=== PATIENT | male | born 1950 | race Caucasian/White ===

== ENCOUNTER 2016-10-29 21:56 | Emergency (ER) | payer OTHER ==
[2016-10-29 22:09] VITALS: BP 141/74; BMI 32.8
--- NOTE | 2016-10-29 22:53 | DR.GENAD ---
HPI - PCP Primary Care Physician: LELIA BENSON - Complaint/Symptoms Chief Complaint Doctors Comments: Port placed yesterday for therapy in [place] is scheduled to return tomorrow. Denies pain. Chief Complaint:: CHANGE DRESSING TO PORT ON CHEST. PORT HAS BEEN BLEEDING - Source History Provided: Patient - Mode of Arrival Mode of Arrival: Ambulatory - Timing Onset of Chief Complaint: 10/29/16 PMH - PMH Past Medical History: Yes Past Medical History: Dyslipidemia, Hypertension, Kidney Stones, [place] Past Medical History Comment: MG Past Surgical History: Yes Surgical History: Cholecystectomy, Ortho Surgery Past Surgical History Comment: PORT PLACEMENT,SHOULDER, BILATERAL KNEE REPLACEMENT, VEINS STRIPPED IN LEGS - Family History History of Family Medical Conditions: Yes Family Medical History: Diabetes Mellitus, Cancer, [place] - Social History Does patient currently use any type of tobacco product: No Have you used tobacco products in the last 12 months: No Type of Tobacco Use: None How many years tobacco product used: 8 Does any household member use tobacco: No Alcohol Use: None Do you use any recreational Drugs:: No Lives With: Spouse Lives Where: Home - infectious screening In the last 2 months have you had wt loss of >10#?: NO Have you had fever, night sweats or hemotysis?: No Have you traveled outside the country in the last 6 months?: No Isolation: Standard ROS - Review of Systems Eyes: No Symptoms Reported ENTM: No Symptoms Reported Respiratoy: No Symptoms Reported Cardiovascular: No Symptoms Reported Gastrointestinal/Abdominal: No Symptoms Reported Genitourinary: No Symptoms Reported Neurological: No Symptoms Reported Musculoskeletal: No Symptoms Reported Integumentary: No Symptoms Reported Hematologic/Lymphatic: No Symptoms Reported Endocrine: No Symptoms Reported Psychiatric: No Symptoms Reported All Other Systems: Reviewed and Negative PE - Vital Signs Vitals: Temperature 97.8 F Pulse Rate 73 Respiratory Rate 20 Blood Pressure [Right Arm] 161/99 Blood Pressure 141/74 O2 Sat by Pulse Oximetry 98 - General Limitations: No Limitations General Appearance: Alert, In No Apparent Distress, Anxious - Head Head Exam: Normal Inspection, Atraumatic - Eyes Eye exam: Normal Appearance, PERRL, EOMI - ENT ENT Exam: Normal Exam External Ear Exam: Normal External Inspection TM/Canal Exam: Bilateral Normal Nose Exam: Normal Nose Exam Mouth Exam: Normal Inspection Throat Exam: Normal Inspection - Neck Neck Exam: Normal Inspection - Chest Chest Inspection: Normal Inspection - Respiratory Respiratory Exam: Normal Lung Sounds Bilat Respiratory Exam: Bilateral Clear to Auscultation - Cardiovascular Cardiovascular Exam: Regular Rate, Normal Rhythm - Abdominal Exam Abdominal Exam: Normal Inspection Abdominal Tenderness: negative: RUQ, RLQ, LUQ, LLQ, Epigastrium, Suprapubic, Diffuse, Mild, Moderate, Severe, Other - Extremities Extremities Exam: Normal Inspection - Back Back Exam: Normal Inspection - Neurologic Neurological Exam: Alert, Oriented X3, CN II-XII Intact - Psychiatric Psychiatric Exam: Normal Affect - Skin Skin Exam: Warm, Dry - Diagnosis Discharge Problem: Central vascular catheter in place upon arrival - Discharge Plan Condition: Stable - Follow ups/Referrals Follow ups/Referrals: SHIVANI LANCASTER [Primary Care Provider] - 3 days - Instructions
== END 2016-10-29 23:30 | disposition home or self-care (01) ==
LOC: ER 22:17
DX: Z95.9 Presence of cardiac and vascular implant and graft, unspecified (principal)
CPT/HCPCS: 99281; 99282

== ENCOUNTER 2016-11-18 12:54 | Emergency (ER) | payer OTHER ==
[2016-11-18 12:58] VITALS: BMI 30.9
[2016-11-18] MEDS ORDERED: NS 1000 ML 1,000 ML IV ONE ×2 (13:14→14:15)
[2016-11-18] MEDS ORDERED: NS 1000 ML 1,000 ML ONE ×2 (13:14→14:05)
[2016-11-18 14:03] LABS: BASOPHILS % (AUTO) 0.2 % (0.2-1.0); EOSINOPHILS # (AUTO) 0.2 x10^3/uL (0.0-0.2); EOSINOPHILS % (AUTO) 1.6 % (0.9-2.9); HEMATOCRIT 40.8 % (42.0-54.0); HEMOGLOBIN 13.3 g/dL (13.5-18.0); LYMPHOCYTES # (AUTO) 1.4 X10^3/uL (1.3-2.9); MEAN CORPUSCULAR HEMOGLOBIN 30.4 pg (27.0-34.0); MEAN CORPUSCULAR HGB CONC 32.7 g/dL (33.0-35.0); MEAN CORPUSCULAR VOLUME 93.1 fL (80.0-100.0); MEAN PLATELET VOLUME 8.6 fL (7.4-11.0); MONOCYTES % (AUTO) 8.5 % (0.0-13.0); NEUTROPHILS # (AUTO) 9.1 x10^3/uL (2.2-4.8); NEUTROPHILS % (AUTO) 77.7 % (42.0-75.0); PLATELET COUNT 145 X10^3/uL (150.0-450.0); RED BLOOD COUNT 4.38 X10^6/uL (4.7-6.0); RED CELL DISTRIBUTION WIDTH 13.9 % (11.6-16.5); WHITE BLOOD COUNT 11.7 X10^3/uL (3.6-10.0)
[2016-11-18 14:19] LABS: BLOOD UREA NITROGEN 47 mg/dL (7-18); CALCIUM 8.1 mg/dL (8.5-10.1); CARBON DIOXIDE 22.8 mmol/L (21-32); CHLORIDE 105 mmol/L (98-107); COR NA(FOR HYPERGLY) 144 mmol/L (136-145); CREATININE 2.39 mg/dL (0.70-1.30); GLUCOSE 200 mg/dL (65-99); SODIUM 142 mmol/L (136-145); TROPONIN I < 0.02 ng/mL (0-1.5); eGFR BLACK RACES 35 (>60); eGFR NON BLACK RACES 29 (>60)
[2016-11-18 14:24] LABS: ALANINE AMINOTRANSFERASE 50 Units/L (12-78); ALBUMIN 3.7 g/dL (3.4-5.0); ALKALINE PHOSPHATASE 33 Units/L (46-116); ASPARTATE AMINO TRANSFERASE 30 Units/L (15-37); CKMB % 3.4 % (<4); CREATINE KINASE 47 Units/L (39-308); CREATINE KINASE MB 1.6 ng/mL (0-4.0); TOTAL PROTEIN 5.4 g/dL (6.4-8.2)
[2016-11-18 15:16] LABS: BILIRUBIN,URINE NEGATIVE (NEGATIVE); BLOOD/HEMOGLOBIN,URINE NEGATIVE (NEGATIVE); GLUCOSE, URINE NEGATIVE (NEGATIVE); KETONES,URINE NEGATIVE (NEGATIVE); LEUKOCYTE ESTERASE ,URINE 1+ (NEGATIVE); NITRITES,URINE NEGATIVE (NEGATIVE); PROTEIN,URINE 2+ (NEGATIVE); UROBILINOGEN,URINE NORMAL (NORMAL)
[2016-11-18 15:26] LABS: APPEARANCE,URINE CLEAR (CLEAR); BACTERIA,URINE TRACE /HPF (NEGATIVE); COLOR,URINE YELLOW (YELLOW); RBC,URINE 0-2 /HPF (NEGATIVE); SQUAMOUS EPITHELIAL CELL,UR NEGATIVE /HPF (NEGATIVE)
--- NOTE | 2016-11-18 16:06 | DR.GENAD ---
HPI - PCP Primary Care Physician: Kylah LANCASTER - Complaint/Symptoms Chief Complaint Doctors Comments: Patient presents with c/o dizziness and low blood pressure. Spourse reports that his blood pressure bottom out 4-5 weeks ago in the doctors office systolic 80s. He is getting plasma exchange and is taking three classes of antihypertensives. Spouse states that his major underlying problem is Myasthenia gravis. Chief Complaint:: PT. C/O BLOOD PRESSURE BEING LOW. B/P WAS 55/39 @ 1230 AND THEN 67/47 @ 1205. PT. C/O DIZZINESS. - Source History Provided: Patient - Mode of Arrival Mode of Arrival: Ambulatory - Timing Onset of Chief Complaint: 11/18/16 PMH - PMH Past Medical History: Yes Past Medical History: Dyslipidemia, Hypertension, Kidney Stones, [place] Past Medical History Comment: Francisco J-WHITNEY Past Surgical History: Yes Surgical History: Cholecystectomy, Ortho Surgery - Family History History of Family Medical Conditions: Yes Family Medical History: Diabetes Mellitus, Cancer, [place] - Social History Does patient currently use any type of tobacco product: No Have you used tobacco products in the last 12 months: No Type of Tobacco Use: None Does any household member use tobacco: No Alcohol Use: None Do you use any recreational Drugs:: No Lives With: Spouse Lives Where: Home - infectious screening In the last 2 months have you had wt loss of >10#?: NO Have you had fever, night sweats or hemotysis?: No Have you traveled outside the country in the last 6 months?: No Isolation: Standard ROS - Review of Systems Eyes: No Symptoms Reported ENTM: No Symptoms Reported Respiratoy: No Symptoms Reported Cardiovascular: Other (hypotension) Gastrointestinal/Abdominal: No Symptoms Reported Genitourinary: No Symptoms Reported Neurological: No Symptoms Reported Musculoskeletal: No Symptoms Reported Integumentary: No Symptoms Reported Hematologic/Lymphatic: No Symptoms Reported Endocrine: No Symptoms Reported Psychiatric: No Symptoms Reported All Other Systems: Reviewed and Negative PE - Vital Signs Vitals: Temperature 98.2 F Pulse Rate [Right Brachial] 62 Pulse Rate 90 Respiratory Rate 16 Blood Pressure [Right Arm] 119/68 Blood Pressure 69/45 O2 Sat by Pulse Oximetry 100 - General Limitations: No Limitations General Appearance: Alert, In No Apparent Distress - Head Head Exam: Normal Inspection, Atraumatic - Eyes Eye exam: Normal Appearance, PERRL, EOMI - ENT ENT Exam: Normal Exam External Ear Exam: Normal External Inspection TM/Canal Exam: Bilateral Normal Nose Exam: Normal Nose Exam Mouth Exam: Normal Inspection Throat Exam: Normal Inspection - Neck Neck Exam: Normal Inspection - Chest Chest Inspection: Normal Inspection - Respiratory Respiratory Exam: Normal Lung Sounds Bilat Respiratory Exam: Bilateral Clear to Auscultation - Cardiovascular Cardiovascular Exam: Regular Rate - Abdominal Exam Abdominal Exam: Normal Inspection Abdominal Tenderness: negative: RUQ, RLQ, LUQ, LLQ, Epigastrium, Suprapubic, Diffuse, Mild, Moderate, Severe, Other - Extremities Extremities Exam: Normal Inspection, Full ROM - Back Back Exam: Normal Inspection - Neurologic Neurological Exam: Alert, Oriented X3, CN II-XII Intact - Psychiatric Psychiatric Exam: Normal Affect - Skin Skin Exam: Warm, Dry, Intact Course - Treatment Treatment: Patient given NS [id number] BP normal ROR - Labs Reviewed Laboratory Results Reviewed?: Yes (cardiacs negative; BUN 47; Cr 2.34) Result Diagrams: 11/18/16 13:54 11/18/16 13:54 Laboratory: WBC 11.7 X10^3/uL (3.6-10.0) H 11/18/16 13:54 RBC 4.38 X10^6/uL (4.7-6.0) L 11/18/16 13:54 Hgb 13.3 g/dL (13.5-18.0) L 11/18/16 13:54 Hct 40.8 % (42.0-54.0) L 11/18/16 13:54 MCV 93.1 fL (80.0-100.0) 11/18/16 13:54 MCH 30.4 pg (27.0-34.0) 11/18/16 13:54 MCHC 32.7 g/dL (33.0-35.0) L 11/18/16 13:54 RDW 13.9 % (11.6-16.5) 11/18/16 13:54 Plt Count 145 X10^3/uL (150.0-450.0) L 11/18/16 13:54 MPV 8.6 fL (7.4-11.0) 11/18/16 13:54 Neut % 77.7 % (42.0-75.0) H 11/18/16 13:54 Lymph % 12.0 % (21.0-51.0) L 11/18/16 13:54 Woods % 8.5 % (0.0-13.0) 11/18/16 13:54 Eos % 1.6 % (0.9-2.9) 11/18/16 13:54 Baso % 0.2 % (0.2-1.0) 11/18/16 13:54 Neut # 9.1 x10^3/uL (2.2-4.8) H 11/18/16 13:54 Lymph # 1.4 X10^3/uL (1.3-2.9) 11/18/16 13:54 Woods # 1.0 x10^3/uL (0.3-0.8) H 11/18/16 13:54 Eos # 0.2 x10^3/uL (0.0-0.2) 11/18/16 13:54 Baso # 0.0 X10^3/uL (0.0-0.1) 11/18/16 13:54 Absolute Nucleated RBC 0.1 /100WBC 11/18/16 13:54 INR Target Range - 11/18/16 13:54 INR 1.31 (0.8-1.3) H 11/18/16 13:54 PTT 26.3 SECONDS (22.9-36.5) 11/18/16 13:54 PTT Comment - 11/18/16 13:54 Sodium 142 mmol/L (136-145) 11/18/16 13:54 Corrected Sodium 144 mmol/L (136-145) 11/18/16 13:54 Potassium 3.5 mmol/L (3.5-5.1) 11/18/16 13:54 Chloride 105 mmol/L (98-107) 11/18/16 13:54 Carbon Dioxide 22.8 mmol/L (21-32) 11/18/16 13:54 BUN 47 mg/dL (7-18) H 11/18/16 13:54 Creatinine 2.39 mg/dL (0.70-1.30) H 11/18/16 13:54 Est GFR (MDRD) Af Amer 35 (>60) L 11/18/16 13:54 Est GFR (MDRD) Non-Af 29 (>60) L 11/18/16 13:54 Glucose 200 mg/dL (65-99) H 11/18/16 13:54 Calcium 8.1 mg/dL (8.5-10.1) L 11/18/16 13:54 Corrected Calcium TNP 11/18/16 13:54 Total Bilirubin 1.30 mg/dL (0.2-1.0) H 11/18/16 13:54 AST 30 Units/L (15-37) 11/18/16 13:54 ALT 50 Units/L (12-78) 11/18/16 13:54 Alkaline Phosphatase 33 Units/L (46-116) L 11/18/16 13:54 Creatine Kinase 47 Units/L (39-308) 11/18/16 13:54 CK-MB (CK-2) 1.6 ng/mL (0-4.0) 11/18/16 13:54 CK/CKMB % Calc 3.4 % (<4) 11/18/16 13:54 Troponin I < 0.02 ng/mL (0-1.5) 11/18/16 13:54 Total Protein 5.4 g/dL (6.4-8.2) L 11/18/16 13:54 Albumin 3.7 g/dL (3.4-5.0) 11/18/16 13:54 Globulin 1.7 g/dL (2.5-4.5) L 11/18/16 13:54 Albumin/Globulin Ratio 2.2 Ratio (1.1-2.1) H 11/18/16 13:54 Specimen Type Clean catch urine 11/18/16 15:10 Urine Color Yellow (YELLOW) 11/18/16 15:10 Urine Appearance Clear (CLEAR) 11/18/16 15:10 Urine pH 6.0 (5.0 - 8.0) 11/18/16 15:10 Ur Specific Banner 1.015 (1.000-1.030) 11/18/16 15:10 Urine Protein 2+ (NEGATIVE) 11/18/16 15:10 Urine Glucose (UA) Negative (NEGATIVE) 11/18/16 15:10 Urine Ketones Negative (NEGATIVE) 11/18/16 15:10 Urine Occult Blood Negative (NEGATIVE) 11/18/16 15:10 Urine Nitrite Negative (NEGATIVE) 11/18/16 15:10 Urine Bilirubin Negative (NEGATIVE) 11/18/16 15:10 Urine Urobilinogen Normal (NORMAL) 11/18/16 15:10 Ur Leukocyte Esterase 1+ (NEGATIVE) 11/18/16 15:10 Urine RBC 0-2 /HPF (NEGATIVE) 11/18/16 15:10 Urine WBC 0-2 /HPF (NEGATIVE) 11/18/16 15:10 Ur Squamous Epith Cells Negative /HPF (NEGATIVE) 11/18/16 15:10 Urine Bacteria Trace /HPF (NEGATIVE) 11/18/16 15:10 Ur Culture Indicated? No/not indicated 11/18/16 15:10 - XRAY XRAY Interpreted by: Radiologist - EKG Rate: 65 - Diagnosis Discharge Problem: Hypotensive episode, Prerenal azotemia - Discharge Plan Condition: Stable - Follow ups/Referrals Follow ups/Referrals: SHIVANI LANCASTER [Primary Care Provider] - 3 days - Instructions
[2016-11-18 16:08] VITALS: BP 121/64
== END 2016-11-18 16:20 | disposition home or self-care (01) ==
LOC: ER 13:08
DX: I95.9 Hypotension, unspecified (principal); R79.89 Other specified abnormal findings of blood chemistry; Z79.01 Long term (current) use of anticoagulants
CPT/HCPCS: 36415; 80053; 81001; 82550; 82553; 84484; 85025; 85610; 85730; 93005; 93010; 96365; 96367; 99283; A4222

== ENCOUNTER → 2016-12-10 | Outpatient (CLI) | payer OTHER ==
[2016-11-18 16:08] VITALS: BP 121/64
[2016-12-10 08:23] LABS: BASOPHILS % (AUTO) 0.1 % (0.2-1.0); EOSINOPHILS % (AUTO) 0.1 % (0.9-2.9); HEMATOCRIT 42.1 % (42.0-54.0); HEMOGLOBIN 13.9 g/dL (13.5-18.0); LYMPHOCYTES # (AUTO) 1.2 X10^3/uL (1.3-2.9); LYMPHOCYTES % (AUTO) 10.6 % (21.0-51.0); MEAN CORPUSCULAR HEMOGLOBIN 30.3 pg (27.0-34.0); MEAN CORPUSCULAR HGB CONC 33.1 g/dL (33.0-35.0); MEAN CORPUSCULAR VOLUME 91.5 fL (80.0-100.0); MEAN PLATELET VOLUME 7.9 fL (7.4-11.0); MONOCYTES # (AUTO) 0.8 x10^3/uL (0.3-0.8); MONOCYTES % (AUTO) 6.6 % (0.0-13.0); NEUTROPHILS # (AUTO) 9.5 x10^3/uL (2.2-4.8); NEUTROPHILS % (AUTO) 82.6 % (42.0-75.0); PLATELET COUNT 124 X10^3/uL (150.0-450.0); RED BLOOD COUNT 4.59 X10^6/uL (4.7-6.0); RED CELL DISTRIBUTION WIDTH 14.3 % (11.6-16.5); WHITE BLOOD COUNT 11.5 X10^3/uL (3.6-10.0)
[2016-12-10 08:42] LABS: ALANINE AMINOTRANSFERASE 57 Units/L (12-78); ALBUMIN 3.3 g/dL (3.4-5.0); ALKALINE PHOSPHATASE 82 Units/L (46-116); ASPARTATE AMINO TRANSFERASE 20 Units/L (15-37); BLOOD UREA NITROGEN 14 mg/dL (7-18); CALCIUM 8.9 mg/dL (8.5-10.1); CARBON DIOXIDE 27.9 mmol/L (21-32); CHLORIDE 106 mmol/L (98-107); COR CA(FOR HYPOALB) 9.5 mg/dL (8.5-10.1); COR NA(FOR HYPERGLY) 147 mmol/L (136-145); CREATININE 1.12 mg/dL (0.70-1.30); GLUCOSE 223 mg/dL (65-99); SODIUM 144 mmol/L (136-145); eGFR BLACK RACES > 60 (>60); eGFR NON BLACK RACES > 60 (>60)
== END ==
LOC: LAB 07:17
PROVIDERS: ATTEND Psychiatry & Neurology Neurology
DX: Z79.899 Other long term (current) drug therapy (principal)
CPT/HCPCS: 36415; 80053; 85025

== ENCOUNTER 2017-02-17 10:44 | Emergency (ER) | payer OTHER ==
[2017-02-17 11:04] VITALS: BMI 29.4
[2017-02-17] MEDS ORDERED: ZOFRAN INJ 4 MG VIAL IVP ONE (12:15)
[2017-02-17] MEDS ORDERED: DEMEROL INJ IVP ONE (12:16)
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
[2017-02-17] MEDS ORDERED: ZOFRAN INJ 4 MG VIAL ONE (12:22)
[2017-02-17] MEDS ORDERED: DEMEROL INJ ONE (12:23)
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
[2017-02-17] MEDS ORDERED: DILAUDID INJ ONE (12:59)
[2017-02-17] MEDS ORDERED: DILAUDID INJ IVP ONE (12:59)
[2017-02-17 13:23] VITALS: BP 109/75
== END 2017-02-17 14:30 | disposition short-term general hospital (02) ==
LOC: ER 10:44
DX: S32.018A Other fracture of first lumbar vertebra, initial encounter for closed fracture (principal); S50.00XA Contusion of unspecified elbow, initial encounter; S00.03XA Contusion of scalp, initial encounter; S09.90XA Unspecified injury of head, initial encounter; M19.90 Unspecified osteoarthritis, unspecified site; M51.36 Other intervertebral disc degeneration, lumbar region; V87.7XXA Person injured in collision between other specified motor vehicles (traffic), initial encounter
CPT/HCPCS: 70450; 71010; 72125; 72131; 73070; 96365; 96374; 96375; 99284; 99285; J1170; J2175; J2405

== ENCOUNTER → 2017-02-25 | Outpatient (CLI) | payer OTHER ==
[2017-02-17 13:23] VITALS: BP 109/75
== END ==
LOC: RAD 11:10
PROVIDERS: ATTEND Nurse Practitioner Family
DX: M79.602 Pain in left arm (principal); R22.32 Localized swelling, mass and lump, left upper limb
CPT/HCPCS: 93971

== ENCOUNTER → 2017-07-07 | Outpatient (CLI) | payer OTHER ==
[2017-07-07 13:29] LABS: BLOOD UREA NITROGEN 21 mg/dL (7-18); CALCIUM 8.8 mg/dL (8.5-10.1); CARBON DIOXIDE 30.4 mmol/L (21-32); CHLORIDE 106 mmol/L (98-107); CREATININE 0.94 mg/dL (0.70-1.30); SODIUM 142 mmol/L (136-145); eGFR BLACK RACES > 60 (>60); eGFR NON BLACK RACES > 60 (>60)
[2017-07-07 13:36] LABS: BASOPHILS % (AUTO) 0.3 % (0.2-1.0); EOSINOPHILS % (AUTO) 0.2 % (0.9-2.9); HEMATOCRIT 40.7 % (42.0-54.0); HEMOGLOBIN 13.3 g/dL (13.5-18.0); LYMPHOCYTES # (AUTO) 1.7 X10^3/uL (1.3-2.9); LYMPHOCYTES % (AUTO) 20.3 % (21.0-51.0); MEAN CORPUSCULAR HEMOGLOBIN 28.5 pg (27.0-34.0); MEAN CORPUSCULAR HGB CONC 32.8 g/dL (33.0-35.0); MEAN CORPUSCULAR VOLUME 86.8 fL (80.0-100.0); MEAN PLATELET VOLUME 8.3 fL (7.4-11.0); MONOCYTES # (AUTO) 0.8 x10^3/uL (0.3-0.8); MONOCYTES % (AUTO) 9.5 % (0.0-13.0); NEUTROPHILS # (AUTO) 5.9 x10^3/uL (2.2-4.8); NEUTROPHILS % (AUTO) 69.7 % (42.0-75.0); PLATELET COUNT 186 X10^3/uL (150.0-450.0); RED BLOOD COUNT 4.69 X10^6/uL (4.7-6.0); RED CELL DISTRIBUTION WIDTH 15.8 % (11.6-16.5); WHITE BLOOD COUNT 8.5 X10^3/uL (3.6-10.0)
== END ==
LOC: LAB 13:06
PROVIDERS: ATTEND Psychiatry & Neurology Neurology
DX: Z79.899 Other long term (current) drug therapy (principal)
CPT/HCPCS: 36415; 80048; 85025

== ENCOUNTER → 2017-08-04 | Outpatient (CLI) | payer OTHER ==
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
== END ==
LOC: RAD 10:01
PROVIDERS: ATTEND Nurse Practitioner Family
DX: M54.17 Radiculopathy, lumbosacral region (principal)
CPT/HCPCS: 72100

== ENCOUNTER 2017-08-07 10:32 | Emergency (ER) | payer OTHER ==
[2017-08-07 10:54] VITALS: BMI 29.5
[2017-08-07] MEDS ORDERED: DUONEB 0.5 MG/3 MG NEB ONE (11:03)
[2017-08-07] MEDS ORDERED: SOLU-Medrol 125 MG VIAL IVP ONE (11:03)
[2017-08-07] MEDS ORDERED: DUONEB 0.5 MG/3 MG ONE (11:07)
[2017-08-07] MEDS ORDERED: NS 1000 ML 1,000 ML ONE (11:11)
[2017-08-07] MEDS ORDERED: SOLU-Medrol 125 MG VIAL ONE (11:11)
--- NOTE | 2017-08-07 11:12 | DR.SOBA ---
HPI - Time Seen Time seen: 11:05 - Primary Care Physician Primary Care Physician: Kylah LANCASTER - Complaints Chief Complaint Doctors Comments: Family complains of SOB, GOMES with patient unable to cough up the mucous with wheezing and cough and complaining of his mouth being sore. States they were going to give him a breathing treatment last night but could not find all the equipment. [facility] he has been givng out. [facility] he has been taking plamophoresis in [place] and switched to [place] because it was closer and has been having IGIV in [place] and [place] but has not had any recently. [facility] he is a patient of Dr. Calloway and has had treatments in [place]. [facility] they do not feel the IVIG is working and they told him they had a new treatment at [facility] that they are waiting for him to try. [facility] she was unable to get in tough with the neurologist in [place] today. [facility] patient has MS and was in the hospital in [place] for a while. Family state he is have problems with neuropathy at home. Chief Complaint:: PT. C/O SHORTNESS OF BREATH AND FATIGUE X 1 WEEK. WORSENING SHORTNESS OF BREATH SINCE YESTERDAY. PT. UNABLE TO COUGH UP ANY MUCOUS/PHLEGM. - Reviewed Nurses Notes Reviewed: Yes - Source History Provided: Patient, EMS - Mode of Arrival Mode of Arrival: EMS - Timing Onset of Chief Complaint: 07/31/17 - Duration Duration: Unknown - Context Onset:: At Rest PE Risk Factors:: None History of:: None Currently on:: Inhaled Bronchodilators Prehospital Care:: None - Modifying Factors Worsens:: Exertion Improves:: Nothing - Associated Signs and Symptoms Associated Signs and Symptoms: Wheeze, Cough, Numbness - If Cough Cough: Nonproductive, White PMH - PMH Past Medical History: Yes Past Medical History: Dyslipidemia, Hypertension, Kidney Stones, [place], Sleep Apnea Past Medical History Comment: MG Past Surgical History: Yes Surgical History: Cholecystectomy, Ortho Surgery, Other Past Surgical History Comment: BACK - Family History History of Family Medical Conditions: Yes Family Medical History: Diabetes Mellitus, Cancer, [place] - Social History Does patient currently use any type of tobacco product: No Have you used tobacco products in the last 12 months: No Type of Tobacco Use: None Does any household member use tobacco: No Alcohol Use: None Do you use any recreational Drugs:: No Lives With: Spouse Lives Where: Home - infectious screening In the last 2 months have you had wt loss of >10#?: NO Have you had fever, night sweats or hemotysis?: No Have you traveled outside the country in the last 6 months?: No Isolation: Standard ROS - Review of Systems Constitutional: No Symptoms Reported, Weakness, Fatigue Eyes: No Symptoms Reported ENTM: No Symptoms Reported, Mouth Pain Respiratoy: No Symptoms Reported, Non-Productive Cough, Short of Breath, Wheezing Cardiovascular: No Symptoms Reported. negative: See HPI, Chest Pain, Edema, Palpitations, Syncope, Cyanosis, Skin Mottling, Other Gastrointestinal/Abdominal: No Symptoms Reported Genitourinary: No Symptoms Reported Neurological: No Symptoms Reported, Paresthesia, Weakness, Problems Walking Musculoskeletal: No Symptoms Reported, Back (fell weeks ago but has been x-ray since but did not get the report) Integumentary: No Symptoms Reported Hematologic/Lymphatic: No Symptoms Reported Endocrine: No Symptoms Reported Psychiatric: No Symptoms Reported PE - Vital Signs Vitals: Temperature 97.3 F Pulse Rate [Apical] 106 Pulse Rate 104 Respiratory Rate 18 Blood Pressure [Right Arm] 136/64 Blood Pressure 136/85 O2 Sat by Pulse Oximetry 98 - General Limitations: No Limitations General Appearance: Alert, In Distress (moderate), Obese - Head Head Exam: Normal Inspection, Atraumatic, Normocephalic - Eyes Eye exam: Normal Appearance, PERRL, EOMI. negative: Scleral Icterus, Conjunctival Injection, Nystagmus, Miosis, Mydrasis, Periorbital Swelling, Periorbital Tenderness, Other - ENT ENT Exam: Normal Exam, Normal Oropharynx, Normal External Ear Exam, Mucous Membranes Moist, TM's Normal Bilaterally (white exudates posterior pharynx) - Neck Neck Exam: Normal Inspection, Full ROM, Trachea Midline - Chest Chest Inspection: Normal Inspection, Symmetric Chest Wall Rise - Respiratory Respiratory Exam: Normal Lung Sounds Bilat, Prolonged Expiratory Phase. negative: Accessory Muscle Use, Chest Wall Tenderness Respiratory Exam: Bilateral Wheezing, Bilateral Decreased Breath Sounds - Cardiovascular Cardiovascular Exam: Regular Rate, Normal Rhythm, Normal Heart Sounds - Abdominal Exam Abdominal Exam: Normal Inspection, Normal Bowel Sounds, Soft Abdominal Tenderness: negative: RUQ, RLQ, LUQ, LLQ, Epigastrium, Suprapubic, Diffuse, Mild, Moderate, Severe, Other - Extremities Extremities Exam: Normal Inspection, Full ROM. negative: Tenderness, Normal Capillary Refill, Edema - Back Back Exam: Normal Inspection, Full ROM - Neurologic Neurological Exam: Alert, Oriented X3, CN II-XII Intact. negative: Normal Gait (gait not tested) - Psychiatric Psychiatric Exam: Normal Affect, Normal Mood - Skin Skin Exam: Warm, Dry, Intact, Normal Color Course - Reevaluation 1st: Improved (Patient requesting to go by helicopter) - Consultation Called: 13:00 (Dr. Brothers accepted patient but has to talk with neurolgist, Dr. Doyle) Call Returned: 13:43 (Patient accepted in transfer to [facility]) - Education/Counseling Education/Counseling: Patient, Family Educated On: Treatment, Diagnosis, Needs for Follow Up ROR - Labs Reviewed Laboratory Results Reviewed?: Yes (all labs and x-ray results reviewed and discussed with patient) Result Diagrams: 08/07/17 11:13 08/07/17 11:13 Laboratory: 08/07/17 11:21 Sputum - Expectorated Sputum Sputum Culture - Final 08/07/17 11:21 Sputum - Expectorated Sputum - Final WBC 9.4 X10^3/uL (3.6-10.0) 08/07/17 11:13 RBC 4.13 X10^6/uL (4.7-6.0) L 08/07/17 11:13 Hgb 12.1 g/dL (13.5-18.0) L 08/07/17 11:13 Hct 36.7 % (42.0-54.0) L 08/07/17 11:13 MCV 88.9 fL (80.0-100.0) 08/07/17 11:13 MCH 29.2 pg (27.0-34.0) 08/07/17 11:13 MCHC 32.9 g/dL (33.0-35.0) L 08/07/17 11:13 RDW 16.2 % (11.6-16.5) 08/07/17 11:13 Plt Count 194 X10^3/uL (150.0-450.0) 08/07/17 11:13 MPV 7.9 fL (7.4-11.0) 08/07/17 11:13 Neut % 73.8 % (42.0-75.0) 08/07/17 11:13 Lymph % 17.8 % (21.0-51.0) L 08/07/17 11:13 Pitt % 7.9 % (0.0-13.0) 08/07/17 11:13 Eos % 0.2 % (0.9-2.9) L 08/07/17 11:13 Baso % 0.3 % (0.2-1.0) 08/07/17 11:13 Neut # 6.9 x10^3/uL (2.2-4.8) H 08/07/17 11:13 Lymph # 1.7 X10^3/uL (1.3-2.9) 08/07/17 11:13 Pitt # 0.7 x10^3/uL (0.3-0.8) 08/07/17 11:13 Eos # 0.0 x10^3/uL (0.0-0.2) 08/07/17 11:13 Baso # 0.0 X10^3/uL (0.0-0.1) 08/07/17 11:13 Absolute Nucleated RBC 0.1 /100WBC 08/07/17 11:13 INR Target Range - 08/07/17 11:13 INR 1.02 (0.8-1.3) 08/07/17 11:13 PTT 24.2 SECONDS (22.9-36.5) 08/07/17 11:13 PTT Comment - 08/07/17 11:13 Sample Site Right radial 08/07/17 11:53 ABG pH 7.450 (7.35-7.45) 08/07/17 11:53 ABG pCO2 35.0 mmHg (35.0-45.0) 08/07/17 11:53 ABG pO2 72.0 mmHg (80.0-100.0) L 08/07/17 11:53 ABG HCO3 24.3 mmol/L (22-26) 08/07/17 11:53 ABG O2 Saturation 95.0 % (90-100) 08/07/17 11:53 ABG Base Excess 0.6 mmol/L (-2.0-2.0) 08/07/17 11:53 Tanner Test Pos 08/07/17 11:53 A-a Gradient 84.0 mmHg 08/07/17 11:53 FiO2 28.000 08/07/17 11:53 Blood Gas Comments Raven well aw 08/07/17 11:53 Sodium 142 mmol/L (136-145) 08/07/17 11:13 Corrected Sodium 143 mmol/L (136-145) 08/07/17 11:13 Potassium 4.2 mmol/L (3.5-5.1) 08/07/17 11:13 Chloride 108 mmol/L (98-107) H 08/07/17 11:13 Carbon Dioxide 28.5 mmol/L (21-32) 08/07/17 11:13 BUN 41 mg/dL (7-18) H 08/07/17 11:13 Creatinine 0.90 mg/dL (0.70-1.30) 08/07/17 11:13 Est GFR (MDRD) Af Amer > 60 (>60) 08/07/17 11:13 Est GFR (MDRD) Non-Af > 60 (>60) 08/07/17 11:13 Glucose 143 mg/dL (65-99) H 08/07/17 11:13 Calcium 8.2 mg/dL (8.5-10.1) L 08/07/17 11:13 Corrected Calcium 9.1 mg/dL (8.5-10.1) 08/07/17 11:13 Magnesium 2.0 mg/dL (1.7-2.9) 08/07/17 11:13 Total Bilirubin 0.80 mg/dL (0.2-1.0) 08/07/17 11:13 AST 26 Units/L (15-37) 08/07/17 11:13 ALT 40 Units/L (12-78) 08/07/17 11:13 Alkaline Phosphatase 53 Units/L (46-116) 08/07/17 11:13 Creatine Kinase 28 Units/L (39-308) L 08/07/17 11:13 CK-MB (CK-2) 1.0 ng/mL (0-4.0) 08/07/17 11:13 CK/CKMB % Calc 3.6 % (<4) 08/07/17 11:13 Troponin I 0.02 ng/mL (0-1.5) 08/07/17 11:13 Total Protein 5.9 g/dL (6.4-8.2) L 08/07/17 11:13 Albumin 2.9 g/dL (3.4-5.0) L 08/07/17 11:13 Globulin 3.0 g/dL (2.5-4.5) 08/07/17 11:13 Albumin/Globulin Ratio 1.0 Ratio (1.1-2.1) L 08/07/17 11:13 Specimen Type Catherized urine 08/07/17 11:57 Urine Color Yellow (YELLOW) 08/07/17 11:57 Urine Appearance Hazy (CLEAR) 08/07/17 11:57 Urine pH 6.0 (5.0 - 8.0) 08/07/17 11:57 Ur Specific [place] 1.015 (1.000-1.030) 08/07/17 11:57 Urine Protein 1+ (NEGATIVE) 08/07/17 11:57 Urine Glucose (UA) Negative (NEGATIVE) 08/07/17 11:57 Urine Ketones 2+ (NEGATIVE) 08/07/17 11:57 Urine Occult Blood 3+ (NEGATIVE) 08/07/17 11:57 Urine Nitrite Negative (NEGATIVE) 08/07/17 11:57 Urine Bilirubin Negative (NEGATIVE) 08/07/17 11:57 Urine Urobilinogen Normal (NORMAL) 08/07/17 11:57 Ur Leukocyte Esterase 1+ (NEGATIVE) 08/07/17 11:57 Urine RBC 11-20 /HPF (NEGATIVE) 08/07/17 11:57 Urine WBC 3-5 /HPF (NEGATIVE) 08/07/17 11:57 Ur Squamous Epith Cells Negative /HPF (NEGATIVE) 08/07/17 11:57 Urine Bacteria Negative /HPF (NEGATIVE) 08/07/17 11:57 Ur Culture Indicated? No/not indicated 08/07/17 11:57 - XRAY XRAY Interpreted by: Radiologist (Chest: No evidence of acute pulmonary abnormality. Cardiomegaly) - Diagnosis Discharge Problem: Myasthenia gravis in crisis, Respiratory distress, Cardiomegaly, Hyperglycemia , Hematuria - Discharge Plan Disposition: 04 XFER ICF Condition: Stable - Follow ups/Referrals Follow ups/Referrals: SHIVANI LANCASTER [Primary Care Provider] - 3 days - Instructions
[2017-08-07 11:22] LABS: BASOPHILS % (AUTO) 0.3 % (0.2-1.0); EOSINOPHILS % (AUTO) 0.2 % (0.9-2.9); HEMATOCRIT 36.7 % (42.0-54.0); HEMOGLOBIN 12.1 g/dL (13.5-18.0); LYMPHOCYTES # (AUTO) 1.7 X10^3/uL (1.3-2.9); LYMPHOCYTES % (AUTO) 17.8 % (21.0-51.0); MEAN CORPUSCULAR HEMOGLOBIN 29.2 pg (27.0-34.0); MEAN CORPUSCULAR HGB CONC 32.9 g/dL (33.0-35.0); MEAN CORPUSCULAR VOLUME 88.9 fL (80.0-100.0); MEAN PLATELET VOLUME 7.9 fL (7.4-11.0); MONOCYTES # (AUTO) 0.7 x10^3/uL (0.3-0.8); MONOCYTES % (AUTO) 7.9 % (0.0-13.0); NEUTROPHILS # (AUTO) 6.9 x10^3/uL (2.2-4.8); NEUTROPHILS % (AUTO) 73.8 % (42.0-75.0); PLATELET COUNT 194 X10^3/uL (150.0-450.0); RED BLOOD COUNT 4.13 X10^6/uL (4.7-6.0); RED CELL DISTRIBUTION WIDTH 16.2 % (11.6-16.5); WHITE BLOOD COUNT 9.4 X10^3/uL (3.6-10.0)
[2017-08-07 11:43] LABS: BLOOD UREA NITROGEN 41 mg/dL (7-18); CALCIUM 8.2 mg/dL (8.5-10.1); CARBON DIOXIDE 28.5 mmol/L (21-32); CHLORIDE 108 mmol/L (98-107); COR NA(FOR HYPERGLY) 143 mmol/L (136-145); SODIUM 142 mmol/L (136-145); TROPONIN I 0.02 ng/mL (0-1.5); eGFR BLACK RACES > 60 (>60); eGFR NON BLACK RACES > 60 (>60)
[2017-08-07 11:47] LABS: ALANINE AMINOTRANSFERASE 40 Units/L (12-78); ALBUMIN 2.9 g/dL (3.4-5.0); ALKALINE PHOSPHATASE 53 Units/L (46-116); ASPARTATE AMINO TRANSFERASE 26 Units/L (15-37); CKMB % 3.6 % (<4); COR CA(FOR HYPOALB) 9.1 mg/dL (8.5-10.1); CREATINE KINASE 28 Units/L (39-308); TOTAL PROTEIN 5.9 g/dL (6.4-8.2)
--- NOTE | 2017-08-07 11:50 | RAD ---
STUDY: CHEST, ONE VIEW History: Chest pain. Comparison: February 17, 2017. Findings: The trachea is midline. There are low lung volumes. The lungs are clear of consolidation, significant infiltrate, effusion, or pneumothorax. The cardiac silhouette is enlarged. The mediastinum and osseo us structures are unremarkable. IMPRESSION: 1. No evidence of acute pulmonary abnormality. 2. Cardiomegaly. Reported By:
[2017-08-07] MEDS ORDERED: NS 1000 ML 1,000 ML IV SCH (12:00)
[2017-08-07 12:02] LABS: BILIRUBIN,URINE NEGATIVE (NEGATIVE); BLOOD/HEMOGLOBIN,URINE 3+ (NEGATIVE); GLUCOSE, URINE NEGATIVE (NEGATIVE); KETONES,URINE 2+ (NEGATIVE); LEUKOCYTE ESTERASE ,URINE 1+ (NEGATIVE); NITRITES,URINE NEGATIVE (NEGATIVE); PROTEIN,URINE 1+ (NEGATIVE); UROBILINOGEN,URINE NORMAL (NORMAL)
[2017-08-07 12:08] LABS: APPEARANCE,URINE HAZY (CLEAR); BACTERIA,URINE NEGATIVE /HPF (NEGATIVE); COLOR,URINE YELLOW (YELLOW); SQUAMOUS EPITHELIAL CELL,UR NEGATIVE /HPF (NEGATIVE)
[2017-08-07] MEDS ORDERED: ATIVAN INJ 2 MG VIAL ONE (12:10)
[2017-08-07] MEDS ORDERED: ATIVAN INJ 2 MG VIAL IVP ONE (12:16)
[2017-08-07 12:19] LABS: ABG BASE EXCESS 0.6 mmol/L (-2.0-2.0); ABG HCO3 24.3 mmol/L (22-26)
[2017-08-07 12:20] LABS: ABG ALLEN TEST POS
[2017-08-07 14:05] VITALS: BP 122/82
== END 2017-08-07 14:20 ==
LOC: ER 10:36
DX: G70.00 Myasthenia gravis without (acute) exacerbation (principal); R06.03 Acute respiratory distress; I51.7 Cardiomegaly; R73.9 Hyperglycemia, unspecified; R31.9 Hematuria, unspecified; R06.02 Shortness of breath
CPT/HCPCS: 36415; 36600; 51702; 71045; 80053; 81001; 82550; 82553; 82803; 83735; 84484; 85025; 85610; 85730; 87205; 93005; 93010; 94640; 96365; 96367; 96374; 96375; 99285; J2060; J2930; J7620

== ENCOUNTER → 2017-08-31 | Outpatient (CLI) | payer OTHER ==
[2017-08-07 14:05] VITALS: BP 122/82
--- NOTE | 2017-08-31 12:51 | RAD ---
History: Shortness of breath Study: PA and lateral chest Comparison: August 07, 2017 Findings: There is limited inspiration of grossly clear lungs. The heart is prominent. The descending aorta is moderately tortuous. There is a moderate L1 compression fracture, similar to CT lumbar spin e examination of January 2017. Impression: Limited inspiration, no definite acute cardiopulmonary disease. Reported By:
== END ==
LOC: RAD 11:42
PROVIDERS: ATTEND Nurse Practitioner Family
DX: R06.02 Shortness of breath (principal); R06.2 Wheezing
CPT/HCPCS: 71046

== ENCOUNTER → 2017-09-07 | Outpatient (CLI) | payer OTHER ==
--- NOTE | 2017-09-08 09:18 | CT ---
HISTORY: Coughing, shortness of breath Study: Noncontrast CT scan of the chest Comparison: Chest x-ray done 08/31/2017. Technique: Non contrasted CT images of the chest are reviewed in axial, coronal and sagittal planes. Dose reduction techniques utilized automatic exposure control. Findings: No evidence of infiltrate, pulmonary nodule, adenopathy or fluid is seen. No evidence of thoracic aor tic aneurysm is seen. There is either calcification or a stent present within the LAD. No pericardial fluid is seen. The heart does not appear enlarged. The liver and adrenal glands are normal. The gall bladder is surgically absent. There is multilevel thoracic spondylosis. Anterior wedge compression fr actures are present at L1 and L3. These may be chronic. IMPRESSION: No evidence of infiltrate, lung nodule, adenopathy or pleural fluid. Reported By:
== END ==
LOC: RAD 14:40
DX: R05 Cough (principal)
CPT/HCPCS: 71250

== ENCOUNTER 2017-09-26 21:49 | Inpatient (IN) | payer OTHER ==
--- NOTE | 2017-09-26 22:19 | DR.GENAD ---
HPI - PCP Primary Care Physician: maximiliano pittman - HPI Comment HPI Comment: WORSE TONIGHT. PATIENT WEAK AND FATIGUE. HAVE MYASTHENIA GRAVIS. SLIGHT COUGHING PRESENT. - Complaint/Symptoms Chief Complaint Doctors Comments: INCREASING LUE SWEALING AND PAIN WITH SOB TIMES 2 DAYS. Chief Complaint:: left arm edema , fevered, from elbow down to hand, ribs hurt and trouble breathing for the last 3 days. - Nurses notes reviewed Nurses Notes Review: Yes - Source History Provided: Patient, Significant Other - Mode of Arrival Mode of Arrival: Ambulatory - Timing Onset of Chief Complaint: 09/23/17 Came on: Suddenly - Duration Duration: Constant Duration: Days - Severity Severity: Moderate PMH - PMH Past Medical History: Yes Past Medical History: Dyslipidemia, Hypertension, Kidney Stones, [place], Sleep Apnea Past Medical History Comment: MG. BLOOD CLOT IN LEFT ARM Past Surgical History: Yes Surgical History: Cholecystectomy, Ortho Surgery, Other - Family History History of Family Medical Conditions: Yes Family Medical History: Diabetes Mellitus, Cancer, [place] - Social History Type of Tobacco Use: None Alcohol Use: None Do you use any recreational Drugs:: No Lives With: Spouse Lives Where: Home - infectious screening Have you traveled outside the country in the last 6 months?: No Isolation: Standard ROS - Review of Systems Constitutional: Weakness, Fatigue. negative: Chills, Fever Eyes: Other (WEAKNESS EYE MUSCLES) ENTM: negative: Ear Pain, Nose Discharge, Nose Congestion, Throat Pain Respiratoy: Non-Productive Cough, Short of Breath. negative: Wheezing, Hemoptysis Cardiovascular: Chest Pain, Edema Gastrointestinal/Abdominal: negative: Abdominal Pain, Diarrhea, Nausea, Vomiting Genitourinary: negative: Dysuria, Hematuria Neurological: Headache, Weakness. negative: Dizziness Musculoskeletal: Muscle Pain (AND WEAKNESS) Integumentary: Change in Color Hematologic/Lymphatic: Anemia, Blood Clots, Easy Bleeding, Easy Bruising Endocrine: No Symptoms Reported All Other Systems: Reviewed and Negative PE - Vital Signs Vitals: Temperature 98.3 F Pulse Rate 118 Respiratory Rate 22 Blood Pressure [Right Arm] 122/82 Blood Pressure 131/75 O2 Sat by Pulse Oximetry 95 - General Limitations: No Limitations General Appearance: Alert - Head Head Exam: Normal Inspection - Eyes Eye exam: PERRL, Other (EYE MUSCLE WEAKNESS.). negative: Scleral Icterus, Conjunctival Injection - ENT ENT Exam: Normal External Ear Exam External Ear Exam: Normal External Inspection TM/Canal Exam: Bilateral Normal Nose Exam: Normal Nose Exam Mouth Exam: Normal Inspection Throat Exam: Normal Inspection - Neck Neck Exam: Trachea Midline - Chest Chest Inspection: Symmetric Chest Wall Rise - Respiratory Respiratory Exam: Normal Lung Sounds Bilat Respiratory Exam: Bilateral Wheezing, Bilateral Rhonchi, Upper Rhonchi, Lower Wheezing, Lower Rhonchi - Cardiovascular Cardiovascular Exam: Tachycardia, Irregular Rhythm - Abdominal Exam Abdominal Exam: Normal Bowel Sounds, Soft. negative: Tenderness - Extremities Extremities Exam: Tenderness (LT UPPER EXTREMITY SWOLLEN. PULSES INTACT. LT ELBOW SWOLLEN AND TENDER.), Edema - Back Back Exam: Normal Inspection - Neurologic Neurological Exam: Alert, Oriented X3 - Psychiatric Psychiatric Exam: Anxious - Skin Skin Exam: Erythema MDM - Additional Information Additional Information Obtained From: Family - Differential Diagnosis Differential Diagnosis: ANEMIA, A FIB, SOB, CHEST PAIN, MYASTHENIA GRAVIS Course - Treatment Treatment: SEE ORDERS. - Consultation Consultation Comments: PATIENT ADMITTED TO DR. HERNANDEZ SERVICE. - Education/Counseling Education/Counseling: Patient, Family, Education Educated On: Diagnosis ROR - Labs Reviewed Laboratory Results Reviewed?: Yes Result Diagrams: 09/26/17 22:25 09/26/17 22:25 Laboratory: WBC 12.0 X10^3/uL (3.6-10.0) H 09/26/17 22:25 RBC 3.15 X10^6/uL (4.7-6.0) L 09/26/17 22:25 Hgb 7.7 g/dL (13.5-18.0) L 09/26/17 22: Hct 24.5 % (42.0-54.0) L 09/26/17 22: MCV 77.7 fL (80.0-100.0) L 09/26/17 22:25 MCH 24.4 pg (27.0-34.0) L 09/26/17 22:25 MCHC 31.5 g/dL (33.0-35.0) L 09/26/17 22:25 RDW 17.8 % (11.6-16.5) H 09/26/17 22:25 Plt Count 245 X10^3/uL (150.0-450.0) 09/26/17 22:25 Plt Count Comment Adequate (ADEQUATE) 09/26/17 22:25 MPV 7.1 fL (7.4-11.0) L 09/26/17 22:25 Neut % 88.1 % (42.0-75.0) H 09/26/17 22: Lymph % 6.0 % (21.0-51.0) L 09/26/17 22:25 Evans % 5.8 % (0.0-13.0) 09/26/17 22: Eos % 0.0 % (0.9-2.9) L 09/26/17 22:25 Baso % 0.1 % (0.2-1.0) L 09/26/17 22:25 Neut # 10.6 x10^3/uL (2.2-4.8) H 09/26/17 22: Lymph # 0.7 X10^3/uL (1.3-2.9) L 09/26/17 22:25 Evans # 0.7 x10^3/uL (0.3-0.8) 09/26/17 22: Eos # 0.0 x10^3/uL (0.0-0.2) 09/26/17 22:25 Baso # 0.0 X10^3/uL (0.0-0.1) 09/26/17 22:25 Absolute Nucleated RBC 0.2 /100WBC 09/26/17 22:25 Plt Morphology Comment Normal (NORMAL) 09/26/17 22:25 RBC Morphology Abnormal (NORMAL) 09/26/17 22:25 Hypochromasia Slight A 09/26/17 22:25 D-Dimer 811 ng/mL (0-400) H* 09/26/17 22:25 Sodium 144 mmol/L (136-145) 09/26/17 22:25 Corrected Sodium 144 mmol/L (136-145) 09/26/17 22:25 Potassium 3.6 mmol/L (3.5-5.1) 09/26/17 22:25 Chloride 107 mmol/L (98-107) 09/26/17 22:25 Carbon Dioxide 26.2 mmol/L (21-32) 09/26/17 22:25 BUN 13 mg/dL (7-18) 09/26/17 22:25 Creatinine 0.97 mg/dL (0.70-1.30) 09/26/17 22:25 Est GFR (MDRD) Af Amer > 60 (>60) 09/26/17 22:25 Est GFR (MDRD) Non-Af > 60 (>60) 09/26/17 22:25 Glucose 114 mg/dL (65-99) H 09/26/17 22:25 Calcium 8.7 mg/dL (8.5-10.1) 09/26/17 22:25 Corrected Calcium 9.4 mg/dL (8.5-10.1) 09/26/17 22:25 Total Bilirubin 0.50 mg/dL (0.2-1.0) 09/26/17 22:25 AST 17 Units/L (15-37) 09/26/17 22:25 ALT 27 Units/L (12-78) 09/26/17 22:25 Alkaline Phosphatase 51 Units/L (46-116) 09/26/17 22:25 Creatine Kinase 31 Units/L (39-308) L 09/26/17 22:25 CK-MB (CK-2) 1.4 ng/mL (0-4.0) 09/26/17 22:25 CK/CKMB % Calc 4.5 % (<4) 09/26/17 22:25 Troponin I < 0.02 ng/mL (0-1.5) 09/26/17 22:25 Total Protein 6.5 g/dL (6.4-8.2) 09/26/17 22:25 Albumin 3.1 g/dL (3.4-5.0) L 09/26/17 22:25 Globulin 3.4 g/dL (2.5-4.5) 09/26/17 22:25 Albumin/Globulin Ratio 0.9 Ratio (1.1-2.1) L 09/26/17 22:25 Blood Type O POSITIVE 09/26/17 23:28 Antibody Screen Negative 09/26/17: Crossmatch See Detail 09/26/17 23:28 - XRAY XRAY Findings: DISCUSS PATIENT WITH DR. HERNANDEZ. HE WILL ADMIT PATIENT. - EKG Rhythm: Afib (EKG NOTED) - Diagnosis Discharge Problem: SOB (shortness of breath), Left arm pain, Left elbow pain, Myasthenia gravis Anemia Qualifiers: Anemia type: iron deficiency Iron deficiency anemia type: chronic blood loss Qualified Code(s): D50.0 - Iron deficiency anemia secondary to blood loss ( chronic) Chest pain Qualifiers: Chest pain type: intercostal pain Qualified Code(s): R07.82 - Intercostal pain A-fib Qualifiers: Atrial fibrillation type: paroxysmal Qualified Code(s): I48.0 - Paroxysmal atrial fibrillation - Discharge Plan Condition: Stable - Follow ups/Referrals - Instructions
[2017-09-26 22:40] LABS: BASOPHILS % (AUTO) 0.1 % (0.2-1.0); HEMATOCRIT 24.5 % (42.0-54.0); HEMOGLOBIN 7.7 g/dL (13.5-18.0); LYMPHOCYTES # (AUTO) 0.7 X10^3/uL (1.3-2.9); MEAN CORPUSCULAR HEMOGLOBIN 24.4 pg (27.0-34.0); MEAN CORPUSCULAR HGB CONC 31.5 g/dL (33.0-35.0); MEAN CORPUSCULAR VOLUME 77.7 fL (80.0-100.0); MEAN PLATELET VOLUME 7.1 fL (7.4-11.0); MONOCYTES # (AUTO) 0.7 x10^3/uL (0.3-0.8); MONOCYTES % (AUTO) 5.8 % (0.0-13.0); NEUTROPHILS # (AUTO) 10.6 x10^3/uL (2.2-4.8); NEUTROPHILS % (AUTO) 88.1 % (42.0-75.0); PLATELET COUNT 245 X10^3/uL (150.0-450.0); RED BLOOD COUNT 3.15 X10^6/uL (4.7-6.0); RED CELL DISTRIBUTION WIDTH 17.8 % (11.6-16.5)
[2017-09-26 22:54] LABS: BLOOD UREA NITROGEN 13 mg/dL (7-18); CALCIUM 8.7 mg/dL (8.5-10.1); CARBON DIOXIDE 26.2 mmol/L (21-32); CHLORIDE 107 mmol/L (98-107); COR NA(FOR HYPERGLY) 144 mmol/L (136-145); CREATININE 0.97 mg/dL (0.70-1.30); SODIUM 144 mmol/L (136-145); TROPONIN I < 0.02 ng/mL (0-1.5); eGFR BLACK RACES > 60 (>60); eGFR NON BLACK RACES > 60 (>60)
[2017-09-26 22:59] LABS: ALANINE AMINOTRANSFERASE 27 Units/L (12-78); ALBUMIN 3.1 g/dL (3.4-5.0); ALKALINE PHOSPHATASE 51 Units/L (46-116); ASPARTATE AMINO TRANSFERASE 17 Units/L (15-37); CKMB % 4.5 % (<4); COR CA(FOR HYPOALB) 9.4 mg/dL (8.5-10.1); CREATINE KINASE 31 Units/L (39-308); CREATINE KINASE MB 1.4 ng/mL (0-4.0); TOTAL PROTEIN 6.5 g/dL (6.4-8.2)
[2017-09-26 23:02] LABS: HYPOCHROMASIA SLIGHT; PLATELET MORPHOLOGY COMMENT NORMAL (NORMAL)
[2017-09-27] MEDS: NS 1000 ML 1,000 ML IV SCH ×2 (02:00→14:29)
[2017-09-27] MEDS ORDERED: NS 500 ML IV 500 ML IV ONE ×2 (02:01→08:40)
[2017-09-27] MEDS: NORCO 5/325 MG TAB PO PRN ×3 (02:08→18:08)
[2017-09-27 04:03] VITALS: BMI 31.6
[2017-09-27 08:38] LABS: BASOPHILS % (AUTO) 0.4 % (0.2-1.0); EOSINOPHILS % (AUTO) 0.2 % (0.9-2.9); HEMATOCRIT 26.5 % (42.0-54.0); HEMOGLOBIN 8.5 g/dL (13.5-18.0); LYMPHOCYTES # (AUTO) 1.2 X10^3/uL (1.3-2.9); LYMPHOCYTES % (AUTO) 13.7 % (21.0-51.0); MEAN CORPUSCULAR HEMOGLOBIN 25.3 pg (27.0-34.0); MEAN CORPUSCULAR HGB CONC 32.2 g/dL (33.0-35.0); MEAN CORPUSCULAR VOLUME 78.7 fL (80.0-100.0); MEAN PLATELET VOLUME 7.7 fL (7.4-11.0); MONOCYTES # (AUTO) 0.6 x10^3/uL (0.3-0.8); MONOCYTES % (AUTO) 6.9 % (0.0-13.0); NEUTROPHILS % (AUTO) 78.8 % (42.0-75.0); PLATELET COUNT 218 X10^3/uL (150.0-450.0); RED BLOOD COUNT 3.37 X10^6/uL (4.7-6.0); RED CELL DISTRIBUTION WIDTH 18.7 % (11.6-16.5); WHITE BLOOD COUNT 8.9 X10^3/uL (3.6-10.0)
[2017-09-27 08:52] LABS: HYPOCHROMASIA SLIGHT; PLATELET MORPHOLOGY COMMENT NORMAL (NORMAL)
[2017-09-27 09:08] LABS: BILIRUBIN,URINE NEGATIVE (NEGATIVE); BLOOD/HEMOGLOBIN,URINE NEGATIVE (NEGATIVE); GLUCOSE, URINE NEGATIVE (NEGATIVE); KETONES,URINE NEGATIVE (NEGATIVE); LEUKOCYTE ESTERASE ,URINE NEGATIVE (NEGATIVE); NITRITES,URINE NEGATIVE (NEGATIVE); PROTEIN,URINE 2+ (NEGATIVE); UROBILINOGEN,URINE NORMAL (NORMAL)
[2017-09-27 09:10] LABS: APPEARANCE,URINE CLEAR (CLEAR); COLOR,URINE YELLOW (YELLOW)
[2017-09-27 09:13] LABS: BACTERIA,URINE TRACE /HPF (NEGATIVE); MUCUS,URINE FEW /HPF (NEGATIVE); RBC,URINE 0-2 /HPF (NONE SEEN); SQUAMOUS EPITHELIAL CELL,UR RARE /HPF (NEGATIVE)
[2017-09-27] MEDS ORDERED: XANAX PO PRN (09:13)
[2017-09-27 09:32] LABS: ALANINE AMINOTRANSFERASE 26 Units/L (12-78); ALBUMIN 2.9 g/dL (3.4-5.0); ALKALINE PHOSPHATASE 50 Units/L (46-116); ASPARTATE AMINO TRANSFERASE 23 Units/L (15-37); BLOOD UREA NITROGEN 13 mg/dL (7-18); CALCIUM 8.4 mg/dL (8.5-10.1); CARBON DIOXIDE 26.6 mmol/L (21-32); CHLORIDE 108 mmol/L (98-107); COR CA(FOR HYPOALB) 9.3 mg/dL (8.5-10.1); COR NA(FOR HYPERGLY) 144 mmol/L (136-145); CREATININE 0.82 mg/dL (0.70-1.30); SODIUM 144 mmol/L (136-145); TOTAL PROTEIN 6.3 g/dL (6.4-8.2); eGFR BLACK RACES > 60 (>60); eGFR NON BLACK RACES > 60 (>60)
[2017-09-27 09:45] LABS: CKMB % 3.6 % (<4); CREATINE KINASE 31 Units/L (39-308); CREATINE KINASE MB 1.1 ng/mL (0-4.0); TROPONIN I < 0.02 ng/mL (0-1.5)
[2017-09-27] MEDS: NEURONTIN CAP 400 MG PO SCH ×3 (14:28→20:56)
[2017-09-27] MEDS: PYRIDOSTIGMINE BROMIDE PO SCH ×4 (14:31→20:58)
[2017-09-27 14:45] LABS: URIC ACID 2.8 mg/dL (3.5-7.2)
[2017-09-27 15:00] LABS: CKMB % 4.1 % (<4); CREATINE KINASE 29 Units/L (39-308); CREATINE KINASE MB 1.2 ng/mL (0-4.0); TROPONIN I < 0.02 ng/mL (0-1.5)
[2017-09-27 15:06] LABS: IRON 17 ug/dL (50-175); TOTAL IRON BINDING CAPACITY 291 ug/dL (250-450)
--- NOTE | 2017-09-27 15:57 | VAS ---
History: Left upper extremity swelling Study: Left upper extremity ultrasound Findings: Real-time images of the left upper extremity veins was performed. This extended from the in ferior left internal jugular vein, the lateral subclavian vein through the forearm veins. Augmentatio n, compression and color flow imaging was performed. There is no DVT identified. Impression: No demonstrated DVT left upper extremity veins. Reported By:
[2017-09-27] MEDS: PROTONIX INJ 40 MG VIAL IVP SCH ×2 (18:07→20:56)
[2017-09-27] MEDS: VANCOMYCIN HCL 1 GM VIAL 1 GM in D5W 250 ML IV 250 ML IV SCH (18:07)
--- NOTE | 2017-09-27 18:28 | RAD ---
ELBOW RADIOGRAPHS CLINICAL HISTORY: 66-year-old male with left arm swelling and pain. COMPARISON: None. FINDINGS: 3 views of the left elbow demonstrate no acute fracture or malalignment. The joint spaces are maintained. There is no joint effusion. The mineralization is normal. There is no aggressive gail ne lesion or abnormal periosteal reaction. Significant diffuse soft tissue edema throughout the left elbow. IMPRESSION: Significant soft tissue edema throughout the left elbow without underlying fracture or malalignment. Reported By:
--- NOTE | 2017-09-27 18:28 | RAD ---
Left wrist, three views Indication: Left arm swelling, pain Comparison: None Findings: No acute fracture or malalignment is identified. There are moderate degenerative changes of the thumb CMC joint and triscaphe articulation. There is mild nonspecific generalized subcutaneous e rhona of the distal forearm and wrist. Impression: Nonspecific generalized subcutaneous edema of the distal forearm and wrist without acute fracture or dislocation. Degenerative changes, as above. Reported By:
--- NOTE | 2017-09-27 18:30 | DR.H&P ---
H&P - History & Physical for Day of: H&P Date: 09/27/17 - Chief Complaint Chief Complaint: SOB, WEAKNESS, LEFT ELBOW PAIN, REDNESS - Allergies Allergies/Adverse Reactions: Allergies Allergy/AdvReac Type Severity Reaction Status Date / Time iodine Allergy Verified 09/26/17 21:58 morphine Allergy Verified 09/26/17 21:58 - History of Present Illness History of Present Illness: 66 [facility] ER ADMISSION AFTER PRESENTING WITH CO SOB, ANEMIA. PT HGB 7.7 ON ADMISSION. PT STATES HE RECENTLY SEEN RHEOLOGIST FOR HEART CHECK UP IN [place], WAS PREVIOUSLY TOLD HE HAD AFIB, STOPPED TAKING ELIQUIS DUE TO ACUTE GI BLEED IN JUL 2017 REQUIRING 5 UNITS BLOOD, EGD AND COLONOSCOPY PERFORMED AT [facility] IN [facility]. PT CO LEFT ELBOW REDNESS AND SWELLING, HAS HX OF "CLOT IN THAT ARM". PT ADMITTED FOR TREATMENT AND EVALUAITON OF SOB, ANEMIA, AND LEFT UPPER EXTREMITY CELLULITIS. - Past Medical History Past Medical History: Dyslipidemia, Hypertension, Kidney Stones, [place], Sleep Apnea - Past Surgical History Surgical History: Angioplasty/Stents, Cholecystectomy, Ortho Surgery - Family History Family Medical History: Diabetes Mellitus, Cancer, [place] - Social History Does patient currently use any type of tobacco product: No Have you used tobacco products in the last 12 months: No Type of Tobacco Use: None Does any household member use tobacco: No Alcohol Use: None Drug Use: None - Medications Home Medications: Albuterol Sulfate [Ventolin Hfa Inhaler] 2 puff INH QID PRN 09/27/17 [History Confirmed 09/27/17] Alprazolam 0.5 mg PO TID PRN 09/27/17 [History Confirmed 09/27/17] Amlodipine Besylate [NORVASC 5 MG *] 5 mg PO DAILY 09/27/17 [History Confirmed 09/27/17] Carvedilol 12.5 mg PO BID 09/27/17 [History Confirmed 09/27/17] Glipizide ER [GLUCOTROL XL 5 MG *] 5 mg PO DAILY 09/27/17 [History Confirmed 12/10] Levothyroxine Sodium 25 mcg PO DAILY 09/27/17 [History Confirmed 09/27/17] Mycophenolate Mofetil [Cellcept] 1,000 mg PO BID 09/27/17 [History Confirmed 12/10] Potassium Chloride 1 tab PO BID PRN 09/27/17 [History Confirmed 09/27/17] - Review of Systems Constitutional: Weakness Eyes: No Symptoms Reported ENT: No Symptoms Reported Respiratory: SOB with Excertion Cardiovascular: Edema Gastrointestinal: No Symptoms Reported Genitourinary: No Symptoms Reported Musculoskeletal: Arm Pain Skin: Other (REDNESS AND SWELLING LEFT ELBOW) - Physical Exam Vital Signs: Temperature 98.5 F Pulse Rate [Right Brachial] 104 Pulse Rate 118 Respiratory Rate 24 Blood Pressure [Right Arm] 158/104 Blood Pressure 131/75 O2 Sat by Pulse Oximetry 97 Oriented: Normal Eyes: Normal Ear: Normal Nose: Normal Throat: Normal Respiratory: RLL Diminished, LLL Diminished Cardiovascular: Normal, Edema : Normal Auscultation: Bowel Sounds: Normal Palpation: Normal Tenderness: Normal Skin: Decreased [place], Red, Tender, Hot Musculoskeletal: Left, Elbow, Swelling, Tender Mood Description: Calm Speech Pattern: Clear, Appropriate - Assessment/Plan (1) Cellulitis of left elbow Status: Acute Plan: ADMIT, IV ATBX. BLOOD CULTURES, ORTHO CONSULT. US LUE, VQ LUNG SCAN. BP MONITORING, CARDIAC MONITORING. TYPE CROSS PRBC,. OBTAIN LAST CATH/ECHO REPORT. EGD/COLONOSCOPY REPORT FORM [facility] (2) Anemia Qualifiers: Anemia type: iron deficiency Iron deficiency anemia type: chronic blood loss Qualified Code(s): D50.0 - Iron deficiency anemia secondary to blood loss (chronic) Status: Acute (3) Left elbow pain Status: Acute (4) Myasthenia gravis Status: Acute (5) SOB (shortness of breath) Status: Acute
--- NOTE | 2017-09-27 18:30 | RAD ---
HISTORY: Left upper extremity pain and swelling Study: Two-view left forearm Comparison: None Findings: No acute fracture or dislocation is evident. Degenerative changes involving the left elbow are noted. Diffuse soft tissue edema is visualized within the left upper extremity. IMPRESSION: 1. Soft tissue edema and without acute abnormality identified within the left forearm. Reported By:
[2017-09-27] MEDS: COREG TAB 12.5 MG PO SCH (20:56)
[2017-09-27] MEDS: LIPITOR TAB 40 MG PO SCH (20:56)
[2017-09-27] MEDS: MYCOPHENOLATE MOFETIL 1000 MG PO SCH (21:06)
[2017-09-27 21:55] LABS: HEMATOCRIT 31.4 % (42.0-54.0); HEMOGLOBIN 10.1 g/dL (13.5-18.0)
--- NOTE | 2017-09-27 22:21 | CT ---
HISTORY: 66-year-old male with left arm swelling and pain. Study: [facility] [place] the left [place]. Comparison: Radiographs of the elbow, forearm and wrist this date. Left upper extremity venous Dopple r this date. Technique: Multiple contiguous axial images of the left forearm were obtained in bone and soft tissue windows. Bone and soft tissue coronal and sagittal reformats are provided. Findings: No fracture or malalignment of the left forearm. Elbow and wrist joints are congruent. There is significant subcutaneous edema/fluid throughout the forearm with relative sparing of the ant erior aspect with predominance at the level of the elbow. There is no significant edema or fluid deep to the fascia. Imaged musculature appears normal in bulk and density. Soft tissues relatively unrema rkable otherwise. IMPRESSION: 1. No acute fracture or malalignment. 2. Significant subcutaneous edema throughout the fat that remains superficial to the fascia along the left forearm most predominant at the elbow. Correlate clinically and with serology. Reported By:
[2017-09-28] MEDS: VANCOMYCIN HCL 1 GM VIAL 1 GM in D5W 250 ML IV 250 ML IV SCH ×3 (00:15→21:00)
[2017-09-28] MEDS: NS 1000 ML 1,000 ML IV SCH (04:03)
[2017-09-28] MEDS: NORCO 5/325 MG TAB PO PRN (05:17)
[2017-09-28 05:43] LABS: BASOPHILS % (AUTO) 0.4 % (0.2-1.0); EOSINOPHILS % (AUTO) 0.4 % (0.9-2.9); HEMATOCRIT 29.4 % (42.0-54.0); HEMOGLOBIN 9.7 g/dL (13.5-18.0); LYMPHOCYTES # (AUTO) 1.3 X10^3/uL (1.3-2.9); LYMPHOCYTES % (AUTO) 18.4 % (21.0-51.0); MEAN CORPUSCULAR HEMOGLOBIN 25.9 pg (27.0-34.0); MEAN CORPUSCULAR HGB CONC 32.9 g/dL (33.0-35.0); MEAN CORPUSCULAR VOLUME 78.8 fL (80.0-100.0); MEAN PLATELET VOLUME 7.5 fL (7.4-11.0); MONOCYTES # (AUTO) 0.5 x10^3/uL (0.3-0.8); MONOCYTES % (AUTO) 7.1 % (0.0-13.0); NEUTROPHILS # (AUTO) 5.4 x10^3/uL (2.2-4.8); NEUTROPHILS % (AUTO) 73.7 % (42.0-75.0); PLATELET COUNT 219 X10^3/uL (150.0-450.0); RED BLOOD COUNT 3.73 X10^6/uL (4.7-6.0); RED CELL DISTRIBUTION WIDTH 18.2 % (11.6-16.5); WHITE BLOOD COUNT 7.3 X10^3/uL (3.6-10.0)
[2017-09-28 05:44] LABS: ALANINE AMINOTRANSFERASE 24 Units/L (12-78); ALBUMIN 2.7 g/dL (3.4-5.0); ALKALINE PHOSPHATASE 51 Units/L (46-116); ASPARTATE AMINO TRANSFERASE 20 Units/L (15-37); BLOOD UREA NITROGEN 8 mg/dL (7-18); CALCIUM 8.2 mg/dL (8.5-10.1); CARBON DIOXIDE 28.5 mmol/L (21-32); CHLORIDE 103 mmol/L (98-107); COR CA(FOR HYPOALB) 9.2 mg/dL (8.5-10.1); COR NA(FOR HYPERGLY) 142 mmol/L (136-145); CREATININE 0.83 mg/dL (0.70-1.30); SODIUM 141 mmol/L (136-145); eGFR BLACK RACES > 60 (>60); eGFR NON BLACK RACES > 60 (>60)
[2017-09-28 06:10] LABS: HYPOCHROMASIA SLIGHT; PLATELET MORPHOLOGY COMMENT NORMAL (NORMAL)
[2017-09-28] MEDS ORDERED: MAGNESIUM SULFATE 1 GM/100 mL PREMIX 1 GM/100 ML BAG IV PRN (06:15)
[2017-09-28] MEDS ORDERED: POTASSIUM CHLORIDE LIQ 20 MEQ UDC PO PRN (06:15)
[2017-09-28] MEDS ORDERED: K-RIDER 10 MEQ/NS 100 ML 10 MEQ/100 ML BAG IV PRN (06:15)
[2017-09-28] MEDS ORDERED: POTASSIUM CHL 40 MEQ/NS 0.45% 500 ML IV PRN (06:15)
[2017-09-28] MEDS ORDERED: MAG-OX TAB PO PRN (06:15)
[2017-09-28] MEDS ORDERED: POTASSIUM CHL 60 MEQ/NS 0.45% 500 ML IV PRN (06:15)
[2017-09-28] MEDS ORDERED: K-LYTE EFFERVESCENT PO PRN (06:15)
[2017-09-28] MEDS: MYCOPHENOLATE MOFETIL 1000 MG PO SCH ×2 (08:15→21:22)
[2017-09-28] MEDS ORDERED: DEMEROL INJ ONE (08:37)
[2017-09-28] MEDS ORDERED: DEMEROL INJ IVP ONE (08:38)
[2017-09-28] MEDS ORDERED: DEMEROL INJ IVP PRN (08:45)
[2017-09-28] MEDS ORDERED: PLAVIX PO SCH (09:00)
[2017-09-28] MEDS: SYNTHROID 25 mcg TAB PO SCH (09:04)
[2017-09-28] MEDS: PROTONIX INJ 40 MG VIAL IVP SCH ×2 (09:04→20:59)
[2017-09-28] MEDS: COREG TAB 12.5 MG PO SCH ×2 (09:05→21:00)
[2017-09-28] MEDS: FLOMAX PO SCH (09:05)
[2017-09-28] MEDS: NORVASC TAB 5 MG PO SCH (09:05)
[2017-09-28] MEDS: NEURONTIN CAP 400 MG PO SCH ×4 (09:05→21:00)
[2017-09-28] MEDS: PYRIDOSTIGMINE BROMIDE PO SCH ×4 (09:06→21:22)
[2017-09-28] MEDS: TYLENOL 325 MG TAB PO PRN (09:08)
[2017-09-28] MEDS: CYMBALTA PO SCH (09:09)
--- NOTE | 2017-09-28 10:58 | RAD ---
HISTORY: 66-year-old male with shortness of breath and elevated D-dimer. Study: Frontal view of the chest. Comparison: Chest radiograph 08/31/2017, CT chest 09/07/2017. Findings: The trachea is midline. The cardiac silhouette is stably enlarged with low lung volumes and chronic prominence of the interstitium/perihilar lung markings. The lungs are clear without focal consolidat ion, effusion or pneumothorax. Soft tissues are unremarkable. Osseous structures are unremarkable. IMPRESSION: 1. No acute cardiopulmonary disease. Reported By:
--- NOTE | 2017-09-28 11:08 | NM ---
Nuclear Medicine Ventilation Perfusion Study Indication: Elevated D-dimer with shortness of breath Comparison: Chest x-ray performed on same day Technique: After the administration of 5.5 mCi of technetium 99m MAA followed by inhalation of 30.3 m Ci of technetium labeled DTPA, posterior, and lateral perfusion and ventilation images were submitted . Findings: Ventilation portion the examination demonstrates mild central clumping of radiotracer consistent with obstructive airways disease, there is no significant gradient or focal loss of the ventilation agent within either lung. Perfusion imaging demonstrates homogeneous perfusion within both lungs. IMPRESSION: 1. Low probably for PTE. 2. Mild obstructive airways disease. Reported By:
--- NOTE | 2017-09-28 13:49 | DR.CONSULT ---
Consult - Consultation for Day of: Date: 09/27/17 (thanks for the consult) - Chief Complaint Chief Complaint: LEFT elbow and forearm pain,swelling, redness since 4 days - Allergies Allergies/Adverse Reactions: Allergies Allergy/AdvReac Type Severity Reaction Status Date / Time iodine Allergy Verified 09/26/17 21:58 morphine Allergy Verified 09/26/17 21:58 - History of Present Illness History of Present Illness: the patient is a known case of cardiacissues currently on PLAVIX. Noticed pain and swelling and redness of the LEFT elbow and upper limp since the last few days. No history of trauma. History of fever. Patient history is also positive for myasthenia gravis. He presented to the emergency room with shortness of breath. I was consulted. - Past Medical History Past Medical History: Dyslipidemia, Hypertension, Kidney Stones, [place], Sleep Apnea - Past Surgical History Surgical History: Angioplasty/Stents, Cholecystectomy, Ortho Surgery - Family History Family Medical History: Diabetes Mellitus, Cancer, [place] - Social History Does patient currently use any type of tobacco product: No Have you used tobacco products in the last 12 months: No Type of Tobacco Use: None Does any household member use tobacco: No Alcohol Use: None Drug Use: None - Medications Home Medications: Albuterol Sulfate [Ventolin Hfa Inhaler] 2 puff INH QID PRN 09/27/17 [History Confirmed 09/27/17] Alprazolam 0.5 mg PO TID PRN 09/27/17 [History Confirmed 09/27/17] Amlodipine Besylate [NORVASC 5 MG *] 5 mg PO DAILY 09/27/17 [History Confirmed 09/27/17] Carvedilol 12.5 mg PO BID 09/27/17 [History Confirmed 09/27/17] Glipizide ER [GLUCOTROL XL 5 MG *] 5 mg PO DAILY 09/27/17 [History Confirmed 12/10] Levothyroxine Sodium 25 mcg PO DAILY 09/27/17 [History Confirmed 09/27/17] Mycophenolate Mofetil [Cellcept] 1,000 mg PO BID 09/27/17 [History Confirmed 12/10] Potassium Chloride 1 tab PO BID PRN 09/27/17 [History Confirmed 09/27/17] - Physical Exam Vital Signs: Temperature 98.7 F Pulse Rate [Right Brachial] 94 Pulse Rate 118 Respiratory Rate 22 Blood Pressure [Right Arm] 135/74 Blood Pressure 131/75 O2 Sat by Pulse Oximetry 91 Musculoskeletal: Left, Elbow, Forearm, Swelling, Tender (examination of the LEFT upper limp done. Diffuse swelling noted involving the forearm and elbow. Redness noted. local warmth noted. Tenderness noted throughout forearm and elbow. No obvious signs of abscess or points of fluctuations noted. Range of motion of the elbow, wrist and pronation supination within normal limits. Distal neurovascular exam intact. ) - Plan Plan: x-rays and CT negative for any septic arthritis involvement. Findings of subcutaneous edema noted. It is cellulitis. He is currently on VANCOMYCIN 1 g every 12. Blood cultures are awaited. There are no obvious signs of abscess which required drainage. Continue with conservative management. We will follow him up in 3 days. Continue with the antibiotic and await on the culture and sensitivity.
[2017-09-28] MEDS ORDERED: PROVENTIL NEB TX 0.083% 2.5MG/ 3ML NEB PRN (14:09)
[2017-09-28 14:26] LABS: BASOPHILS % (AUTO) 0.2 % (0.2-1.0); EOSINOPHILS % (AUTO) 0.1 % (0.9-2.9); HEMATOCRIT 30.7 % (42.0-54.0); HEMOGLOBIN 9.8 g/dL (13.5-18.0); LYMPHOCYTES # (AUTO) 0.5 X10^3/uL (1.3-2.9); LYMPHOCYTES % (AUTO) 4.4 % (21.0-51.0); MEAN CORPUSCULAR HEMOGLOBIN 25.6 pg (27.0-34.0); MEAN CORPUSCULAR VOLUME 79.8 fL (80.0-100.0); MEAN PLATELET VOLUME 7.6 fL (7.4-11.0); MONOCYTES # (AUTO) 0.3 x10^3/uL (0.3-0.8); MONOCYTES % (AUTO) 2.8 % (0.0-13.0); NEUTROPHILS # (AUTO) 9.9 x10^3/uL (2.2-4.8); NEUTROPHILS % (AUTO) 92.5 % (42.0-75.0); PLATELET COUNT 220 X10^3/uL (150.0-450.0); RED BLOOD COUNT 3.85 X10^6/uL (4.7-6.0); WHITE BLOOD COUNT 10.7 X10^3/uL (3.6-10.0)
[2017-09-28 14:44] LABS: BAND NEUTROPHILS % 3 % (0-10); HYPOCHROMASIA SLIGHT; PLATELET MORPHOLOGY COMMENT NORMAL (NORMAL); POIKILOCYTOSIS 1+
[2017-09-28] MEDS: DUONEB 0.5 MG/3 MG NEB SCH ×2 (16:05→21:59)
[2017-09-28 20:16] LABS: CREATININE 0.82 mg/dL (0.70-1.30); VANCOMYCIN,TROUGH 9.4 ug/mL (15-20)
[2017-09-28] MEDS: LIPITOR TAB 40 MG PO SCH (21:00)
[2017-09-28] MEDS: PULMICORT NEB TX 0.5 MG NEB SCH (21:59)
[2017-09-29] MEDS: NORCO 5/325 MG TAB PO PRN ×2 (04:08→21:33)
[2017-09-29] MEDS: NS 1000 ML 1,000 ML IV SCH ×2 (04:09→18:07)
[2017-09-29 05:25] LABS: BASOPHILS % (AUTO) 0.3 % (0.2-1.0); EOSINOPHILS % (AUTO) 0.3 % (0.9-2.9); HEMATOCRIT 30.7 % (42.0-54.0); HEMOGLOBIN 9.8 g/dL (13.5-18.0); LYMPHOCYTES # (AUTO) 1.1 X10^3/uL (1.3-2.9); LYMPHOCYTES % (AUTO) 12.4 % (21.0-51.0); MEAN CORPUSCULAR HEMOGLOBIN 25.2 pg (27.0-34.0); MEAN CORPUSCULAR HGB CONC 31.9 g/dL (33.0-35.0); MEAN CORPUSCULAR VOLUME 78.7 fL (80.0-100.0); MEAN PLATELET VOLUME 7.7 fL (7.4-11.0); MONOCYTES # (AUTO) 0.6 x10^3/uL (0.3-0.8); NEUTROPHILS # (AUTO) 6.9 x10^3/uL (2.2-4.8); PLATELET COUNT 245 X10^3/uL (150.0-450.0); RED CELL DISTRIBUTION WIDTH 18.2 % (11.6-16.5); WHITE BLOOD COUNT 8.6 X10^3/uL (3.6-10.0)
[2017-09-29 05:40] LABS: PLATELET MORPHOLOGY COMMENT NORMAL (NORMAL)
[2017-09-29 05:41] LABS: HYPOCHROMASIA SLIGHT; POIKILOCYTOSIS SLIGHT
[2017-09-29 05:50] LABS: ALANINE AMINOTRANSFERASE 27 Units/L (12-78); ALBUMIN 2.6 g/dL (3.4-5.0); ALKALINE PHOSPHATASE 61 Units/L (46-116); ASPARTATE AMINO TRANSFERASE 20 Units/L (15-37); BLOOD UREA NITROGEN 12 mg/dL (7-18); CALCIUM 8.6 mg/dL (8.5-10.1); CARBON DIOXIDE 26.7 mmol/L (21-32); CHLORIDE 104 mmol/L (98-107); COR CA(FOR HYPOALB) 9.7 mg/dL (8.5-10.1); COR NA(FOR HYPERGLY) 142 mmol/L (136-145); CREATININE 0.74 mg/dL (0.70-1.30); SODIUM 141 mmol/L (136-145); TOTAL PROTEIN 5.9 g/dL (6.4-8.2); eGFR BLACK RACES > 60 (>60); eGFR NON BLACK RACES > 60 (>60)
[2017-09-29] MEDS: TYLENOL 325 MG TAB PO PRN ×2 (06:11→13:12)
[2017-09-29] MEDS: PULMICORT NEB TX 0.5 MG NEB SCH ×2 (08:11→21:01)
[2017-09-29] MEDS: DUONEB 0.5 MG/3 MG NEB SCH ×4 (08:11→21:01)
[2017-09-29] MEDS: COREG TAB 12.5 MG PO SCH ×2 (08:48→21:14)
[2017-09-29] MEDS: NORVASC TAB 5 MG PO SCH (08:48)
[2017-09-29] MEDS: SYNTHROID 25 mcg TAB PO SCH (08:48)
[2017-09-29] MEDS: CYMBALTA PO SCH (08:48)
[2017-09-29] MEDS: NEURONTIN CAP 400 MG PO SCH ×4 (08:48→21:15)
[2017-09-29] MEDS: FLOMAX PO SCH (08:48)
[2017-09-29] MEDS: VANCOMYCIN HCL 1 GM VIAL 1 GM in D5W 250 ML IV 250 ML IV SCH ×2 (08:49→21:15)
[2017-09-29] MEDS: PROTONIX INJ 40 MG VIAL IVP SCH ×2 (08:49→21:15)
[2017-09-29] MEDS: MYCOPHENOLATE MOFETIL 1000 MG PO SCH ×2 (08:49→21:15)
[2017-09-29] MEDS: PYRIDOSTIGMINE BROMIDE PO SCH ×4 (08:49→21:15)
[2017-09-29] MEDS: ULTRAM PO PRN (18:00)
--- NOTE | 2017-09-29 18:05 | PCM.PROG ---
Progress Note - Progress Note for Day of Date: 09/29/17 - Subjective Subjective: LEFT ELBOW PAIN, REDNESS AND SWELLING. PT 66 WM WITH LUE CELLULITIS , CURRENTLY ON VANCOMYCIN. PT WAS EVALAUTED BY DR NIX. PT HAS HAD SOME IMPROVEMENT SINCE ADMISSION IN REDNESS AND SWELLING. PT CONTINUES TO CO PAIN. PLAN TO CONTINUE IV ATBX, REPEAT AM SED RATE, PAIN CONTROL. PT, MONITOR H & H - Past Medical Family Social History Past Med/Fam/Surg Hx: No changes since H&P Allergies: Allergies iodine Allergy (Verified 09/26/17 21:58) morphine Allergy (Verified 09/26/17 21:58) - Review of Systems ROS: No change since H&P - Vital Signs and I&O's Vital Signs: Temperature 97.9 F Pulse Rate [Right Brachial] 80 Pulse Rate 74 Respiratory Rate 16 Blood Pressure [Right Arm] 132/77 Blood Pressure 131/75 O2 Sat by Pulse Oximetry 94 Intake and Output: Intake & Output 09/27/17 09/28/17 09/29/17 09/30/17 11:59 11:59 11:59 11:59 Intake Total 870 1650 1330 1250 Balance 870 1650 1330 1250 - Physical Exam Oriented: Normal Eyes: Normal Ear: Normal Nose: Normal Throat: Normal Respiratory: Wheezes Cardiovascular: Normal, Edema : Normal Auscultation: Bowel Sounds: Normal Tenderness: Normal Skin: Decreased Turgur, Red, Tender, Hot Musculoskeletal: Left, Elbow, Forearm, Swelling, Tender (examination of the LEFT upper limp done. Diffuse swelling noted involving the forearm and elbow. Redness noted. local warmth noted. Tenderness noted throughout forearm and elbow. No obvious signs of abscess or points of fluctuations noted. Range of motion of the elbow, wrist and pronation supination within normal limits. Distal neurovascular exam intact. ) Mood Description: Calm Speech Pattern: Clear, Appropriate - Laboratory and Diagnostics Result Diagrams: 09/29/17 04:10 09/29/17 04:10 Labs: 09/27/17 16:30 Blood Blood Culture - Preliminary 09/27/17 16:26 Blood Blood Culture - Preliminary Laboratory WBC 8.6 X10^3/uL (3.6-10.0) 09/29/17 04:10 RBC 3.90 X10^6/uL (4.7-6.0) L 09/29/17 04:10 Hgb 9.8 g/dL (13.5-18.0) L 09/29/17 04:10 Hct 30.7 % (42.0-54.0) L 09/29/17 04:10 MCV 78.7 fL (80.0-100.0) L 09/29/17 04:10 MCH 25.2 pg (27.0-34.0) L 09/29/17 04:10 MCHC 31.9 g/dL (33.0-35.0) L 09/29/17 04:10 RDW 18.2 % (11.6-16.5) H 09/29/17 04:10 Plt Count 245 X10^3/uL (150.0-450.0) 09/29/17 04:10 Plt Count Comment Adequate (ADEQUATE) 09/29/17 04:10 MPV 7.7 fL (7.4-11.0) 09/29/17 04:10 Neut % 80.0 % (42.0-75.0) H 09/29/17 04:10 Lymph % 12.4 % (21.0-51.0) L 09/29/17 04:10 Bee % 7.0 % (0.0-13.0) 09/29/17 04:10 Eos % 0.3 % (0.9-2.9) L 09/29/17 04:10 Baso % 0.3 % (0.2-1.0) 09/29/17 04:10 Neut # 6.9 x10^3/uL (2.2-4.8) H 09/29/17 04:10 Lymph # 1.1 X10^3/uL (1.3-2.9) L 09/29/17 04:10 Bee # 0.6 x10^3/uL (0.3-0.8) 09/29/17 04:10 Eos # 0.0 x10^3/uL (0.0-0.2) 09/29/17 04:10 Baso # 0.0 X10^3/uL (0.0-0.1) 09/29/17 04:10 Absolute Nucleated RBC 0.1 /100WBC 09/29/17 04:10 Total Counted 100 09/28/17 13:44 Neutrophils % (Manual) 92 % (39-76) H 09/28/17 13:44 Band Neutrophils % 3 % (0-10) 09/28/17 13:44 Lymphocytes % (Manual) 3 % (13-43) L 09/28/17 13:44 Monocytes % (Manual) 2 % (4-9) L 09/28/17 13:44 Plt Morphology Comment Normal (NORMAL) 09/29/17 04:10 RBC Morphology Abnormal (NORMAL) 09/29/17 04:10 Hypochromasia Slight A 09/29/17 04:10 Poikilocytosis Slight A 09/29/17 04:10 ESR 31 MM/HOUR (0-15) H 09/27/17 14:25 INR Target Range - 09/27/17 08:09 INR 0.97 (0.8-1.3) 09/27/17 08:09 PTT 25.8 SECONDS (22.9-36.5) 09/27/17 08:09 PTT Comment - 09/27/17 08:09 D-Dimer 811 ng/mL (0-400) H* 09/26/17 22:25 Sodium 141 mmol/L (136-145) 09/29/17 04:10 Corrected Sodium 142 mmol/L (136-145) 09/29/17 04:10 Potassium 4.0 mmol/L (3.5-5.1) 09/29/17 04:10 Chloride 104 mmol/L (98-107) 09/29/17 04:10 Carbon Dioxide 26.7 mmol/L (21-32) 09/29/17 04:10 BUN 12 mg/dL (7-18) 09/29/17 04:10 Creatinine 0.74 mg/dL (0.70-1.30) 09/29/17 04:10 Est GFR (MDRD) Af Amer > 60 (>60) 09/29/17 04:10 Est GFR (MDRD) Non-Af > 60 (>60) 09/29/17 04:10 Glucose 134 mg/dL (65-99) H 09/29/17 04:10 POC Glucose (mg/dL) 182 mg/dL (65-99) H 09/28/17 11:23 Uric Acid 2.8 mg/dL (3.5-7.2) L 09/27/17 14:25 Calcium 8.6 mg/dL (8.5-10.1) 09/29/17 04:10 Corrected Calcium 9.7 mg/dL (8.5-10.1) 09/29/17 04:10 Magnesium 1.8 mg/dL (1.7-2.9) 09/28/17 03:55 Iron 17 ug/dL (50-175) L 09/26/17 22:25 TIBC 291 ug/dL (250-450) 09/26/17 22:25 Ferritin 82 ng/mL (26-388) 09/26/17 22:25 Total Bilirubin 0.40 mg/dL (0.2-1.0) 09/29/17 04:10 AST 20 Units/L (15-37) 09/29/17 04:10 ALT 27 Units/L (12-78) 09/29/17 04:10 Alkaline Phosphatase 61 Units/L (46-116) 09/29/17 04:10 Creatine Kinase 29 Units/L (39-308) L 09/27/17 14:25 CK-MB (CK-2) 1.2 ng/mL (0-4.0) 09/27/17 14:25 CK/CKMB % Calc 4.1 % (<4) 09/27/17 14:25 Troponin I < 0.02 ng/mL (0-1.5) 09/27/17 14:25 C-Reactive Protein 92.00 mg/L (0-3.0) H 09/27/17 14:25 Total Protein 5.9 g/dL (6.4-8.2) L 09/29/17 04:10 Albumin 2.6 g/dL (3.4-5.0) L 09/29/17 04:10 Globulin 3.3 g/dL (2.5-4.5) 09/29/17 04:10 Albumin/Globulin Ratio 0.8 Ratio (1.1-2.1) L 09/29/17 04:10 Specimen Type Clean catch urine 09/27/17 08:45 Urine Color Yellow (YELLOW) 09/27/17 08:45 Urine Appearance Clear (CLEAR) 09/27/17 08:45 Urine pH 5.0 (5.0 - 8.0) 09/27/17 08:45 Ur Specific [place] 1.030 (1.000-1.030) 09/27/17 08:45 Urine Protein 2+ (NEGATIVE) 09/27/17 08:45 Urine Glucose (UA) Negative (NEGATIVE) 09/27/17 08:45 Urine Ketones Negative (NEGATIVE) 09/27/17 08:45 Urine Occult Blood Negative (NEGATIVE) 09/27/17 08:45 Urine Nitrite Negative (NEGATIVE) 09/27/17 08:45 Urine Bilirubin Negative (NEGATIVE) 09/27/17 08:45 Urine Urobilinogen Normal (NORMAL) 09/27/17 08:45 Ur Leukocyte Esterase Negative (NEGATIVE) 09/27/17 08:45 Urine RBC 0-2 /HPF (NONE SEEN) 09/27/17 08:45 Urine WBC 2-4 /HPF (NONE SEEN) 09/27/17 08:45 Ur Squamous Epith Cells Rare /HPF (NEGATIVE) 09/27/17 08:45 Urine Bacteria Trace /HPF (NEGATIVE) 09/27/17 08:45 Urine Mucus Few /HPF (NEGATIVE) 09/27/17 08:45 Ur Culture Indicated? No/not indicated 09/27/17 08:45 Stool Description 50g,green,soft form 09/29/17 12:50 Stl Occult Blood (IFOB) Negative (NEGATIVE) 09/29/17 12:50 Vancomycin Trough 9.4 ug/mL (15-20) L 09/28/17 19:42 Blood Type O POSITIVE 09/26/17 23:28 Antibody Screen Negative 09/26/17 23:28 Crossmatch See Detail 09/26/17 23:28 - Plan (1) Cellulitis of left elbow Status: Acute Plan: CONTINUE IV ATBX. BLOOD CULTURES, ORTHO CONSULT. US LUE NEGATIVE FOR DVT. BP MONITORING, CARDIAC MONITORING. DAILY CBC. OBTAIN LAST CATH/ECHO REPORT. EGD/COLONOSCOPY REPORT [facility] (2) Anemia Status: Acute Qualifiers: Anemia type: iron deficiency Iron deficiency anemia type: chronic blood loss Qualified Code(s): D50.0 - Iron deficiency anemia secondary to blood loss (chronic) (3) Left elbow pain Status: Acute (4) Myasthenia gravis Status: Acute (5) SOB (shortness of breath) Status: Acute
[2017-09-29] MEDS ORDERED: PHARMACY CONSULT - DOSE _____ XX SCH (19:00)
[2017-09-29 20:48] LABS: CREATININE 0.77 mg/dL (0.70-1.30); VANCOMYCIN,TROUGH 9.2 ug/mL (15-20)
[2017-09-29] MEDS: LIPITOR TAB 40 MG PO SCH (21:14)
[2017-09-30 05:17] LABS: BASOPHILS % (AUTO) 0.3 % (0.2-1.0); EOSINOPHILS % (AUTO) 0.6 % (0.9-2.9); HEMATOCRIT 31.7 % (42.0-54.0); HEMOGLOBIN 10.3 g/dL (13.5-18.0); LYMPHOCYTES # (AUTO) 1.2 X10^3/uL (1.3-2.9); LYMPHOCYTES % (AUTO) 15.4 % (21.0-51.0); MEAN CORPUSCULAR HEMOGLOBIN 25.5 pg (27.0-34.0); MEAN CORPUSCULAR HGB CONC 32.5 g/dL (33.0-35.0); MEAN CORPUSCULAR VOLUME 78.4 fL (80.0-100.0); MEAN PLATELET VOLUME 7.6 fL (7.4-11.0); MONOCYTES # (AUTO) 0.6 x10^3/uL (0.3-0.8); MONOCYTES % (AUTO) 7.5 % (0.0-13.0); NEUTROPHILS # (AUTO) 6.2 x10^3/uL (2.2-4.8); NEUTROPHILS % (AUTO) 76.2 % (42.0-75.0); PLATELET COUNT 273 X10^3/uL (150.0-450.0); RED BLOOD COUNT 4.05 X10^6/uL (4.7-6.0); RED CELL DISTRIBUTION WIDTH 18.2 % (11.6-16.5); WHITE BLOOD COUNT 8.1 X10^3/uL (3.6-10.0)
[2017-09-30 05:26] LABS: HYPOCHROMASIA SLIGHT; PLATELET MORPHOLOGY COMMENT NORMAL (NORMAL)
[2017-09-30 05:36] LABS: ALANINE AMINOTRANSFERASE 29 Units/L (12-78); ALBUMIN 2.9 g/dL (3.4-5.0); ALKALINE PHOSPHATASE 67 Units/L (46-116); ASPARTATE AMINO TRANSFERASE 20 Units/L (15-37); BLOOD UREA NITROGEN 9 mg/dL (7-18); CALCIUM 8.5 mg/dL (8.5-10.1); CHLORIDE 103 mmol/L (98-107); COR CA(FOR HYPOALB) 9.4 mg/dL (8.5-10.1); CREATININE 0.69 mg/dL (0.70-1.30); SODIUM 143 mmol/L (136-145); TOTAL PROTEIN 6.4 g/dL (6.4-8.2); eGFR BLACK RACES > 60 (>60); eGFR NON BLACK RACES > 60 (>60)
[2017-09-30 05:45] LABS: ERYTHROCYTE SEDIMENTATION RATE 40 MM/HOUR (0-15)
[2017-09-30] MEDS: NORCO 5/325 MG TAB PO PRN (06:20)
[2017-09-30] MEDS ORDERED: SNACK - Diabetic Appropriate PO SCH (07:45)
[2017-09-30] MEDS ORDERED: NS 250 ML IV 250 ML IV ONE (07:55)
[2017-09-30] MEDS: ULTRAM PO PRN (08:09)
[2017-09-30] MEDS: VANCOMYCIN HCL 1 GM VIAL 1 GM in D5W 250 ML IV 250 ML IV SCH (09:06)
[2017-09-30] MEDS: SYNTHROID 25 mcg TAB PO SCH (09:06)
[2017-09-30] MEDS: COREG TAB 12.5 MG PO SCH (09:06)
[2017-09-30] MEDS: PROTONIX INJ 40 MG VIAL IVP SCH (09:06)
[2017-09-30] MEDS: CYMBALTA PO SCH (09:07)
[2017-09-30] MEDS: NORVASC TAB 5 MG PO SCH (09:07)
[2017-09-30] MEDS: FLOMAX PO SCH (09:07)
[2017-09-30] MEDS: NEURONTIN CAP 400 MG PO SCH ×2 (09:07→14:30)
[2017-09-30] MEDS: PULMICORT NEB TX 0.5 MG NEB SCH (09:35)
[2017-09-30] MEDS: DUONEB 0.5 MG/3 MG NEB SCH (09:35)
[2017-09-30] MEDS: MYCOPHENOLATE MOFETIL 1000 MG PO SCH (10:40)
[2017-09-30] MEDS: PYRIDOSTIGMINE BROMIDE PO SCH ×2 (10:41→14:25)
[2017-09-30 12:01] VITALS: BP 136/74
[2017-09-30] MEDS ORDERED: NEOSPORIN OINT ONE (14:04)
[2017-09-30] MEDS ORDERED: NEOSPORIN OINT TOP ONE (14:22)
== END 2017-09-30 15:15 | disposition home or self-care (01) | DRG 603 ==
LOC: ER 21:49 → MED/SURG 09-27 00:06 → OBSVTOIN 09-28 09:00
PROVIDERS: ADMIT Internal Medicine; ATTEND Internal Medicine
PROC: 30233N1 Transfusion of Nonautologous Red Blood Cells into Peripheral Vein, Percutaneous Approach (ICD-10-PCS; principal; 2017-09-27)
PROC: 30233N1 Transfusion of Nonautologous Red Blood Cells into Peripheral Vein, Percutaneous Approach (ICD-10-PCS; 2017-09-27)
DX: L03.114 Cellulitis of left upper limb (principal); R06.02 Shortness of breath; I48.0 Paroxysmal atrial fibrillation; D50.0 Iron deficiency anemia secondary to blood loss (chronic); R07.82 Intercostal pain; R53.1 Weakness; R60.1 Generalized edema; E78.2 Mixed hyperlipidemia; I10 Essential (primary) hypertension; M25.522 Pain in left elbow; M79.622 Pain in left upper arm; G70.00 Myasthenia gravis without (acute) exacerbation; R94.31 Abnormal electrocardiogram [ECG] [EKG]; R25.8 Other abnormal involuntary movements; M62.81 Muscle weakness (generalized)
CPT/HCPCS: 36415; 36430; 71045; 73070; 73090; 73100; 73200; 78582; 80053; 80202; 81001; 82274; 82550; 82553; 82565; 82728; 83540; 83550; 83735; 84484; 84550; 85014; 85018; 85025; 85378; 85610; 85652; 85730; 86140; 86141; 86850; 86900; 86901; 86922; 87040; 93005; 93010; 93971; 94760; 96365; 97535; 99284; A4222; A9540; A9567; C9113; G8978; G8979; G8987; G8988; P9016; G0378; J2175; J3370; J7620; J7626

== ENCOUNTER 2017-10-01 11:08 | Inpatient (IN) | payer OTHER ==
[2017-10-01 11:55] VITALS: BMI 32.3
[2017-10-01] MEDS ORDERED: ZOFRAN INJ 4 MG VIAL IVP PRN (12:35)
[2017-10-01] MEDS ORDERED: ALBUTEROL SULFATE INH PRN (12:36)
[2017-10-01] MEDS ORDERED: DUONEB 0.5 MG/3 MG ONE (12:57)
[2017-10-01 13:00] LABS: BASOPHILS # (AUTO) 0.1 X10^3/uL (0.0-0.1); BASOPHILS % (AUTO) 0.9 % (0.2-1.0); EOSINOPHILS # (AUTO) 0.1 x10^3/uL (0.0-0.2); EOSINOPHILS % (AUTO) 0.7 % (0.9-2.9); HEMOGLOBIN 11.2 g/dL (13.5-18.0); LYMPHOCYTES # (AUTO) 0.9 X10^3/uL (1.3-2.9); LYMPHOCYTES % (AUTO) 9.4 % (21.0-51.0); MEAN CORPUSCULAR HEMOGLOBIN 25.2 pg (27.0-34.0); MEAN CORPUSCULAR VOLUME 78.7 fL (80.0-100.0); MEAN PLATELET VOLUME 7.3 fL (7.4-11.0); MONOCYTES # (AUTO) 0.6 x10^3/uL (0.3-0.8); MONOCYTES % (AUTO) 5.9 % (0.0-13.0); NEUTROPHILS # (AUTO) 8.1 x10^3/uL (2.2-4.8); NEUTROPHILS % (AUTO) 83.1 % (42.0-75.0); PLATELET COUNT 270 X10^3/uL (150.0-450.0); RED BLOOD COUNT 4.44 X10^6/uL (4.7-6.0); RED CELL DISTRIBUTION WIDTH 18.6 % (11.6-16.5); WHITE BLOOD COUNT 9.7 X10^3/uL (3.6-10.0)
[2017-10-01] MEDS ORDERED: PHARMACY CONSULT - VANCOMYCIN XX SCH (13:00)
[2017-10-01 13:09] LABS: ALANINE AMINOTRANSFERASE 30 Units/L (12-78); ALBUMIN 3.3 g/dL (3.4-5.0); ALKALINE PHOSPHATASE 72 Units/L (46-116); ASPARTATE AMINO TRANSFERASE 25 Units/L (15-37); BLOOD UREA NITROGEN 11 mg/dL (7-18); CALCIUM 8.6 mg/dL (8.5-10.1); CARBON DIOXIDE 31.6 mmol/L (21-32); CHLORIDE 102 mmol/L (98-107); COR CA(FOR HYPOALB) 9.2 mg/dL (8.5-10.1); COR NA(FOR HYPERGLY) 143 mmol/L (136-145); SODIUM 141 mmol/L (136-145); TOTAL PROTEIN 6.7 g/dL (6.4-8.2); eGFR BLACK RACES > 60 (>60); eGFR NON BLACK RACES > 60 (>60)
[2017-10-01] MEDS: DEMEROL INJ IVP PRN ×2 (13:10→23:50)
[2017-10-01] MEDS: COLACE CAP 100 MG PO SCH ×2 (13:10→20:40)
[2017-10-01] MEDS: DUONEB 0.5 MG/3 MG NEB SCH ×3 (13:18→20:49)
[2017-10-01] MEDS: NEURONTIN CAP 400 MG PO SCH ×3 (13:23→20:40)
[2017-10-01] MEDS: PYRIDOSTIGMINE BROMIDE PO SCH ×4 (13:23→20:40)
[2017-10-01 13:35] LABS: ERYTHROCYTE SEDIMENTATION RATE 30 MM/HOUR (0-15); PLATELET MORPHOLOGY COMMENT NORMAL (NORMAL)
--- NOTE | 2017-10-01 13:44 | RAD ---
History: Left-sided chest pain Study: Chest single view Findings: Single AP view of the chest is compared to the study of 09/28/2017. A very poor inspiratory effort is present exaggerating heart size. Lungs and pleural spaces appear clear. Numerous suture an kles within the left humeral neck are noted. Impression: No acute intra thoracic disease is identified. Reported By:
[2017-10-01] MEDS: VANCOMYCIN HCL 500 MG VIAL 500 MG, VANCOMYCIN HCL 1 GM VIAL 1 GM in NS 250 ML IV 250 ML IV SCH ×2 (13:47→22:50)
--- NOTE | 2017-10-01 13:58 | DR.H&P ---
H&P - History & Physical for Day of: H&P Date: 10/01/17 - Chief Complaint Chief Complaint: SEVERE PAIN TO LEFT ARM - Allergies Allergies/Adverse Reactions: Allergies Allergy/AdvReac Type Severity Reaction Status Date / Time iodine Allergy Verified 09/26/17 21:58 morphine Allergy Verified 09/26/17 21:58 - History of Present Illness History of Present Illness: 66 WM DIRECT ADMIT WITH CO SEVERE LEFT UPPER EXTREMITY PAIN, PT WAS RECENTLY IN [facility] FOR CELLULITIS TO LUE. PT WAS ALLOWED TO D/C HOME PO BACTRIM, PT STATES PAIN WAS CONTROLLED ON D/C AND IMPROVED SYMPTOMS. PT HAS MG, COPD, CAD, ANEMIA, HX GERD. PT ADMITTED FOR PAIN CONTROL, IV ABTX THERAPY, ADMISSION LABS CBC CMP, BC - Past Medical History Past Medical History: Arthritis, COPD, Coronary Artery Disease, Dyslipidemia, GERD, Hypertension, Kidney Stones, [place], Sleep Apnea Additional Medical History: HX GASTIRIC ULCER, GI BLEED IN JUL 2017, MG - Past Surgical History Surgical History: Cholecystectomy, Ortho Surgery - Family History Family Medical History: Diabetes Mellitus, Cancer, [place] - Social History Does patient currently use any type of tobacco product: No Have you used tobacco products in the last 12 months: No Type of Tobacco Use: None Does any household member use tobacco: No Alcohol Use: None - Review of Systems Constitutional: No Symptoms Reported Eyes: No Symptoms Reported ENT: No Symptoms Reported Respiratory: Shortness of Breath, Wheezing Cardiovascular: No Symptoms Reported Gastrointestinal: No Symptoms Reported Musculoskeletal: Back Pain Skin: Other (REDNESS AND SWELLING) Neurological: Weakness (DIFFUSE) - Physical Exam Vital Signs: Temperature 97.6 F Pulse Rate [Left Radial] 94 Pulse Rate 92 Respiratory Rate 20 Blood Pressure [Right Arm] 140/83 Blood Pressure 136/74 O2 Sat by Pulse Oximetry 95 Oriented: Normal Eyes: Normal Ear: Normal Nose: Normal Respiratory: RLL Diminished, LLL Diminished Cardiovascular: Normal, Edema (BILATERAL TRACE EDEMA) : Normal Auscultation: Bowel Sounds: Normal Palpation: Normal Skin: Decreased Turgur, Red, Tender, Hot Musculoskeletal: Left, Elbow, Back:Thoracic, Back:Lumbar, Swelling, Tender Mood Description: Depressed Speech Pattern: Clear - Assessment/Plan (1) CAD (coronary artery disease) Status: Acute (2) COPD (chronic obstructive pulmonary disease) Status: Acute (3) Arthritis Status: Acute (4) Cellulitis of left elbow Status: Acute (5) Myasthenia gravis Status: Acute
--- NOTE | 2017-10-01 14:54 | RAD ---
ELBOW RADIOGRAPHS CLINICAL HISTORY: 66-year-old female with left upper extremity swelling COMPARISON: Left elbow radiographs 09/27/2017. FINDINGS: 3 views of the left elbow demonstrate no acute fracture or malalignment. The joint spaces are maintained. There is no joint effusion. The mineralization is normal. There is no aggressive gail ne lesion or abnormal periosteal reaction. Mild persistent soft tissues edema about the posterior as pect of the left elbow. IMPRESSION: Mild persistent soft tissue edema about the posterior aspect of the elbow without underlying fracture or malalignment. Reported By:
--- NOTE | 2017-10-01 14:56 | RAD ---
Examination: Left forearm, two views History: Swelling Findings: There is no evidence for fracture, bone destruction or contour abnormality involving radius or ulna. There is diffuse soft tissue edema involving the forearm. Impression: Nonspecific soft tissue swelling. No acute osseous abnormality noted. Reported By:
--- NOTE | 2017-10-01 14:56 | RAD ---
Left hand, three views Indication: Left upper extremity swelling Comparison: None Findings: No acute fracture or malalignment is identified. There are moderate degenerative changes of the thumb CMC and triscaphe articulation mild DJD of the interphalangeal joints of the hand are also noted. There is mild nonspecific soft tissue swelling of the medial hand and wrist. No soft tissue g as or radiopaque foreign body identified. Impression: Mild nonspecific soft tissue swelling of the medial hand and wrist. Correlate clinically for infectio n/cellulitis. Degenerative changes, as above. Reported By:
--- NOTE | 2017-10-01 20:10 | RAD ---
Examination: Thoracic spine, AP and lateral views History: Back pain, history of previous fall Findings: Submitted images are of limited technical quality. Radiographic detail and evaluation of th oracic vertebrae is suboptimal. There are compression fracture deformities of 1 or more thoracic vertebral bodies in the lower thorac ic spine near the thoracolumbar junction. No displacement or bone destruction is seen. The AP view av ailable it does not demonstrate the vertebral body satisfactorily. No paraspinal mass or osteoblastic disease is demonstrated. Impression: Markedly suboptimal examination thoracic spine. See above. Compression fractures of lower thoracic vertebrae, age and cause undetermined. Correlate clinically with repeat/follow-up imaging. Dx Reported By:
[2017-10-01] MEDS: ZYLOPRIM PO SCH (20:40)
[2017-10-01] MEDS: LIPITOR TAB 40 MG PO SCH (20:40)
[2017-10-01] MEDS: MYCOPHENOLATE MOFETIL 1000 MG PO SCH (20:40)
[2017-10-01] MEDS: COREG TAB 12.5 MG PO SCH (20:40)
[2017-10-01] MEDS: PULMICORT NEB TX 0.5 MG NEB SCH (20:49)
[2017-10-01 21:11] LABS: BILIRUBIN,URINE NEGATIVE (NEGATIVE); BLOOD/HEMOGLOBIN,URINE 1+ (NEGATIVE); GLUCOSE, URINE 1+ (NEGATIVE); KETONES,URINE NEGATIVE (NEGATIVE); LEUKOCYTE ESTERASE ,URINE NEGATIVE (NEGATIVE); NITRITES,URINE NEGATIVE (NEGATIVE); PH,URINE 6.5 (5.0 - 8.0); PROTEIN,URINE 1+ (NEGATIVE); UROBILINOGEN,URINE 1+ (NORMAL)
[2017-10-01 21:27] LABS: APPEARANCE,URINE CLEAR (CLEAR); BACTERIA,URINE NEGATIVE /HPF (NEGATIVE); COLOR,URINE YELLOW (YELLOW); RBC,URINE 0-3 /HPF (NONE SEEN); SQUAMOUS EPITHELIAL CELL,UR FEW /HPF (NEGATIVE)
[2017-10-01] MEDS ORDERED: VANCOMYCIN 1 GM PREMIX (ADDVANTAGE) 250 ML IV ONE (22:27)
[2017-10-01] MEDS ORDERED: VANCOMYCIN HCL 500 MG VIAL ONE (22:27)
[2017-10-02] MEDS: NORCO 10/325 TAB PO PRN ×4 (01:25→21:05)
--- NOTE | 2017-10-02 02:35 | RAD ---
Lumbar spine, AP, lateral, and obliques Indication: Chronic back pain. Fall recently. Comparison: CT chest 09/07/2017. CT lumbar spine 02/17/2017. Findings: Positioning is suboptimal. There are chronic compression deformities of the T12, L1, and L3 vertebral bodies, not significantly changed compared with the most recent CT. The lumbar spine align ment is within normal limits. No definite acute fracture identified. There is severe multilevel disco genic and facet degenerative disease, worst at L4-5 and L5-S1. There is generalized osteopenia. Impression: Suboptimal positioning without evidence for acute lumbar spine fracture. Chronic fracture deformities of T12, L1, L3 are similar to the recent CT chest from last month. Severe multilevel spondylosis. Generalized osteopenia. Reported By:
[2017-10-02] MEDS ORDERED: VANCOMYCIN HCL 500 MG VIAL ONE (04:50)
[2017-10-02] MEDS ORDERED: VANCOMYCIN 1 GM PREMIX (ADDVANTAGE) 250 ML IV ONE ×2 (04:51→22:18)
[2017-10-02] MEDS: VANCOMYCIN HCL 500 MG VIAL 500 MG, VANCOMYCIN HCL 1 GM VIAL 1 GM in NS 250 ML IV 250 ML IV SCH ×2 (05:31→13:46)
[2017-10-02 06:09] LABS: BASOPHILS % (AUTO) 0.4 % (0.2-1.0); EOSINOPHILS % (AUTO) 0.5 % (0.9-2.9); HEMATOCRIT 31.8 % (42.0-54.0); HEMOGLOBIN 10.2 g/dL (13.5-18.0); LYMPHOCYTES # (AUTO) 1.5 X10^3/uL (1.3-2.9); LYMPHOCYTES % (AUTO) 19.4 % (21.0-51.0); MEAN CORPUSCULAR HEMOGLOBIN 25.2 pg (27.0-34.0); MEAN CORPUSCULAR HGB CONC 32.1 g/dL (33.0-35.0); MEAN CORPUSCULAR VOLUME 78.5 fL (80.0-100.0); MEAN PLATELET VOLUME 7.5 fL (7.4-11.0); MONOCYTES # (AUTO) 0.7 x10^3/uL (0.3-0.8); MONOCYTES % (AUTO) 9.7 % (0.0-13.0); NEUTROPHILS # (AUTO) 5.3 x10^3/uL (2.2-4.8); PLATELET COUNT 259 X10^3/uL (150.0-450.0); RED BLOOD COUNT 4.05 X10^6/uL (4.7-6.0); RED CELL DISTRIBUTION WIDTH 18.5 % (11.6-16.5); WHITE BLOOD COUNT 7.6 X10^3/uL (3.6-10.0)
[2017-10-02 06:30] LABS: ALANINE AMINOTRANSFERASE 27 Units/L (12-78); ALKALINE PHOSPHATASE 63 Units/L (46-116); ASPARTATE AMINO TRANSFERASE 21 Units/L (15-37); BLOOD UREA NITROGEN 14 mg/dL (7-18); CALCIUM 8.3 mg/dL (8.5-10.1); CARBON DIOXIDE 30.9 mmol/L (21-32); CHLORIDE 104 mmol/L (98-107); COR CA(FOR HYPOALB) 9.1 mg/dL (8.5-10.1); CREATININE 0.83 mg/dL (0.70-1.30); SODIUM 143 mmol/L (136-145); TOTAL PROTEIN 6.1 g/dL (6.4-8.2); eGFR BLACK RACES > 60 (>60); eGFR NON BLACK RACES > 60 (>60)
[2017-10-02 07:09] LABS: PLATELET MORPHOLOGY COMMENT NORMAL (NORMAL)
[2017-10-02 07:10] LABS: MICROCYTOSIS SLIGHT
[2017-10-02 07:11] LABS: ANISOCYTOSIS SLIGHT
[2017-10-02] MEDS ORDERED: TYLENOL 325 MG TAB PO PRN (07:50)
[2017-10-02] MEDS: GLUCOTROL XL PO SCH (08:13)
[2017-10-02] MEDS: CYMBALTA PO SCH (08:13)
[2017-10-02] MEDS: MICRO K EXTEN CAP 10 MEQ PO SCH (08:13)
[2017-10-02] MEDS: NEURONTIN CAP 400 MG PO SCH ×4 (08:13→21:04)
[2017-10-02] MEDS: FLOMAX PO SCH (08:13)
[2017-10-02] MEDS: COREG TAB 12.5 MG PO SCH ×2 (08:13→21:04)
[2017-10-02] MEDS: MYCOPHENOLATE MOFETIL 1000 MG PO SCH ×2 (08:13→21:05)
[2017-10-02] MEDS: PYRIDOSTIGMINE BROMIDE PO SCH ×4 (08:14→21:10)
[2017-10-02] MEDS: NORVASC TAB 5 MG PO SCH (08:14)
[2017-10-02] MEDS: ZYLOPRIM PO SCH ×2 (08:14→21:04)
[2017-10-02] MEDS: SYNTHROID 25 mcg TAB PO SCH (08:14)
[2017-10-02] MEDS: PLAVIX PO SCH (08:14)
[2017-10-02] MEDS: DUONEB 0.5 MG/3 MG NEB SCH ×4 (08:48→20:08)
[2017-10-02] MEDS: PULMICORT NEB TX 0.5 MG NEB SCH ×2 (08:48→20:08)
[2017-10-02] MEDS: PROTONIX INJ 40 MG VIAL IVP SCH (11:46)
[2017-10-02 13:44] LABS: VANCOMYCIN,TROUGH 22.6 ug/mL (15-20)
[2017-10-02 13:45] LABS: CREATININE 0.83 mg/dL (0.70-1.30)
[2017-10-02] MEDS: DEMEROL INJ IVP PRN (18:15)
[2017-10-02] MEDS: LIPITOR TAB 40 MG PO SCH (21:04)
[2017-10-02] MEDS: COLACE CAP 100 MG PO SCH (21:04)
[2017-10-02] MEDS: XANAX PO PRN (21:05)
[2017-10-02 21:52] LABS: CREATININE 1.02 mg/dL (0.70-1.30); VANCOMYCIN,TROUGH 13.7 ug/mL (15-20)
[2017-10-02] MEDS: VANCOMYCIN HCL IV SCH (22:29)
[2017-10-02] MEDS: [UNRECOGNIZED DRUG - OTHER] IV SCH (22:29)
[2017-10-03] MEDS ORDERED: VANCOMYCIN 1 GM PREMIX (ADDVANTAGE) 250 ML IV ONE ×2 (05:01→21:45)
[2017-10-03] MEDS: NORCO 10/325 TAB PO PRN ×3 (05:27→20:53)
[2017-10-03] MEDS: VANCOMYCIN HCL IV SCH ×3 (05:28→22:14)
[2017-10-03] MEDS: [UNRECOGNIZED DRUG - OTHER] IV SCH ×3 (05:28→22:14)
[2017-10-03 06:07] LABS: BASOPHILS # (AUTO) 0.1 X10^3/uL (0.0-0.1); EOSINOPHILS % (AUTO) 0.7 % (0.9-2.9); HEMATOCRIT 30.1 % (42.0-54.0); HEMOGLOBIN 9.8 g/dL (13.5-18.0); LYMPHOCYTES # (AUTO) 1.2 X10^3/uL (1.3-2.9); LYMPHOCYTES % (AUTO) 19.4 % (21.0-51.0); MEAN CORPUSCULAR HEMOGLOBIN 25.6 pg (27.0-34.0); MEAN CORPUSCULAR HGB CONC 32.4 g/dL (33.0-35.0); MEAN CORPUSCULAR VOLUME 78.9 fL (80.0-100.0); MEAN PLATELET VOLUME 7.6 fL (7.4-11.0); MONOCYTES # (AUTO) 0.5 x10^3/uL (0.3-0.8); NEUTROPHILS # (AUTO) 4.6 x10^3/uL (2.2-4.8); NEUTROPHILS % (AUTO) 71.9 % (42.0-75.0); PLATELET COUNT 250 X10^3/uL (150.0-450.0); RED BLOOD COUNT 3.82 X10^6/uL (4.7-6.0); RED CELL DISTRIBUTION WIDTH 18.6 % (11.6-16.5); WHITE BLOOD COUNT 6.4 X10^3/uL (3.6-10.0)
[2017-10-03 06:15] LABS: ALANINE AMINOTRANSFERASE 27 Units/L (12-78); ALBUMIN 2.8 g/dL (3.4-5.0); ALKALINE PHOSPHATASE 65 Units/L (46-116); ASPARTATE AMINO TRANSFERASE 22 Units/L (15-37); BLOOD UREA NITROGEN 12 mg/dL (7-18); CALCIUM 8.5 mg/dL (8.5-10.1); CARBON DIOXIDE 31.1 mmol/L (21-32); CHLORIDE 104 mmol/L (98-107); COR CA(FOR HYPOALB) 9.5 mg/dL (8.5-10.1); CREATININE 0.82 mg/dL (0.70-1.30); SODIUM 142 mmol/L (136-145); TOTAL PROTEIN 5.9 g/dL (6.4-8.2); eGFR BLACK RACES > 60 (>60); eGFR NON BLACK RACES > 60 (>60)
[2017-10-03 06:56] LABS: ANISOCYTOSIS 1+; HYPOCHROMASIA 1+; PLATELET MORPHOLOGY COMMENT NORMAL (NORMAL); POIKILOCYTOSIS 1+
--- NOTE | 2017-10-03 07:00 | CT ---
HISTORY: Swelling and pain Study: CT scan of the left humerus Comparison: Plain radiographs done 10/01/2017. Technique: Non contrasted CT images of the left humerus are reviewed in axial, coronal and sagittal p lanes. Dose reduction techniques utilized automatic exposure control. Findings: There are metallic anchors present from prior rotator cuff tendon surgery. No evidence of fracture or dislocation is seen. Subcutaneous edema is present involving the dorsal aspect of the distal humerus region with focal fluid accumulation in the olecranon bursa. Findings have the appearance of olecran on bursitis. There are mild degenerative hypertrophy changes present involving the shoulder and elbow joints. IMPRESSION: Mild degenerative changes of the shoulder and elbow joints with prior shoulder surgery. No fracture o r dislocation is seen. Olecranon bursitis. There is some subcutaneous edema present involving the distal left humerus region . Reported By:
--- NOTE | 2017-10-03 07:21 | RAD ---
HISTORY: Shortness of breath, cellulitis in left arm with pain Study: Single-view chest, done portably and upright Comparison: 10/01/2017 Findings: Trachea is midline. Lung volumes are low with accentuation of the transverse cardiac diameter and bro nchovascular markings. No consolidation or CHF is seen. Small left pleural effusion is not reliably e xcluded. Osseous structures are intact. IMPRESSION: Very expiratory chest. A small left pleural effusion is not reliably excluded. Upright PA and lateral chest x-ray with good inspiration suggested when patient's clinical condition permits. Reported By:
[2017-10-03] MEDS: DUONEB 0.5 MG/3 MG NEB SCH ×4 (08:05→20:11)
[2017-10-03] MEDS: PULMICORT NEB TX 0.5 MG NEB SCH ×2 (08:05→20:11)
[2017-10-03] MEDS: PROTONIX INJ 40 MG VIAL IVP SCH (09:51)
[2017-10-03] MEDS: COREG TAB 12.5 MG PO SCH ×2 (09:52→20:51)
[2017-10-03] MEDS: NORVASC TAB 5 MG PO SCH (09:52)
[2017-10-03] MEDS: FLOMAX PO SCH (09:52)
[2017-10-03] MEDS: MICRO K EXTEN CAP 10 MEQ PO SCH (09:52)
[2017-10-03] MEDS: ZYLOPRIM PO SCH ×2 (09:52→20:51)
[2017-10-03] MEDS: NEURONTIN CAP 400 MG PO SCH ×4 (09:52→20:51)
[2017-10-03] MEDS: GLUCOTROL XL PO SCH (09:52)
[2017-10-03] MEDS: SYNTHROID 25 mcg TAB PO SCH (09:52)
[2017-10-03] MEDS: PYRIDOSTIGMINE BROMIDE PO SCH ×4 (09:53→21:04)
[2017-10-03] MEDS: MYCOPHENOLATE MOFETIL 1000 MG PO SCH ×2 (09:54→20:53)
[2017-10-03] MEDS: PLAVIX PO SCH (09:56)
[2017-10-03] MEDS: CYMBALTA PO SCH (09:57)
[2017-10-03] MEDS: PREDNISONE TAB 20 MG PO SCH (11:35)
[2017-10-03] MEDS ORDERED: ULTRAM PO PRN (15:42)
[2017-10-03] MEDS: DEMEROL INJ IVP PRN (18:21)
[2017-10-03] MEDS: LIPITOR TAB 40 MG PO SCH (20:51)
[2017-10-03] MEDS: COLACE CAP 100 MG PO SCH (20:51)
[2017-10-03 21:49] LABS: CREATININE 1.01 mg/dL (0.70-1.30); VANCOMYCIN,TROUGH 17.9 ug/mL (15-20)
[2017-10-03] MEDS ORDERED: NS 250 ML IV 250 ML IV ONE (22:22)
[2017-10-04 04:57] LABS: BASOPHILS % (AUTO) 0.5 % (0.2-1.0); EOSINOPHILS % (AUTO) 0.4 % (0.9-2.9); HEMOGLOBIN 10.3 g/dL (13.5-18.0); LYMPHOCYTES # (AUTO) 1.4 X10^3/uL (1.3-2.9); LYMPHOCYTES % (AUTO) 18.3 % (21.0-51.0); MEAN CORPUSCULAR HEMOGLOBIN 25.3 pg (27.0-34.0); MEAN CORPUSCULAR HGB CONC 32.1 g/dL (33.0-35.0); MEAN CORPUSCULAR VOLUME 78.6 fL (80.0-100.0); MEAN PLATELET VOLUME 7.4 fL (7.4-11.0); MONOCYTES # (AUTO) 0.6 x10^3/uL (0.3-0.8); MONOCYTES % (AUTO) 7.5 % (0.0-13.0); NEUTROPHILS # (AUTO) 5.7 x10^3/uL (2.2-4.8); NEUTROPHILS % (AUTO) 73.3 % (42.0-75.0); PLATELET COUNT 278 X10^3/uL (150.0-450.0); RED BLOOD COUNT 4.08 X10^6/uL (4.7-6.0); RED CELL DISTRIBUTION WIDTH 18.7 % (11.6-16.5); WHITE BLOOD COUNT 7.7 X10^3/uL (3.6-10.0)
[2017-10-04 05:00] LABS: ALANINE AMINOTRANSFERASE 27 Units/L (12-78); ALKALINE PHOSPHATASE 72 Units/L (46-116); ASPARTATE AMINO TRANSFERASE 19 Units/L (15-37); BLOOD UREA NITROGEN 11 mg/dL (7-18); CALCIUM 8.6 mg/dL (8.5-10.1); CARBON DIOXIDE 29.6 mmol/L (21-32); CHLORIDE 102 mmol/L (98-107); COR CA(FOR HYPOALB) 9.4 mg/dL (8.5-10.1); COR NA(FOR HYPERGLY) 141 mmol/L (136-145); CREATININE 0.83 mg/dL (0.70-1.30); SODIUM 140 mmol/L (136-145); TOTAL PROTEIN 6.3 g/dL (6.4-8.2); eGFR BLACK RACES > 60 (>60); eGFR NON BLACK RACES > 60 (>60)
[2017-10-04] MEDS ORDERED: VANCOMYCIN 1 GM PREMIX (ADDVANTAGE) 250 ML IV ONE ×2 (05:47→22:06)
[2017-10-04 05:56] LABS: HYPOCHROMASIA SLIGHT; PLATELET MORPHOLOGY COMMENT NORMAL (NORMAL)
[2017-10-04] MEDS: PYRIDOSTIGMINE BROMIDE PO SCH ×3 (06:14→21:27)
[2017-10-04] MEDS: [UNRECOGNIZED DRUG - OTHER] IV SCH ×3 (06:15→22:31)
[2017-10-04] MEDS: VANCOMYCIN HCL IV SCH ×3 (06:15→22:31)
[2017-10-04] MEDS: PULMICORT NEB TX 0.5 MG NEB SCH ×2 (08:34→20:10)
[2017-10-04] MEDS: DUONEB 0.5 MG/3 MG NEB SCH ×4 (08:34→20:10)
[2017-10-04] MEDS: DEMEROL INJ IVP PRN (08:43)
[2017-10-04] MEDS: NEURONTIN CAP 400 MG PO SCH ×4 (08:43→21:25)
[2017-10-04] MEDS: ZYLOPRIM PO SCH ×2 (08:44→21:25)
[2017-10-04] MEDS: SYNTHROID 25 mcg TAB PO SCH (08:44)
[2017-10-04] MEDS: COREG TAB 12.5 MG PO SCH ×2 (08:44→21:26)
[2017-10-04] MEDS: FLOMAX PO SCH (08:44)
[2017-10-04] MEDS: NORVASC TAB 5 MG PO SCH (08:44)
[2017-10-04] MEDS: PREDNISONE TAB 20 MG PO SCH ×2 (08:44→14:08)
[2017-10-04] MEDS: GLUCOTROL XL PO SCH (08:44)
[2017-10-04] MEDS: MICRO K EXTEN CAP 10 MEQ PO SCH (08:44)
[2017-10-04] MEDS: PLAVIX PO SCH (08:49)
[2017-10-04] MEDS: CYMBALTA PO SCH (08:59)
[2017-10-04] MEDS ORDERED: PREDNISONE TAB 20 MG PO SCH (09:00)
[2017-10-04] MEDS: PROTONIX INJ 40 MG VIAL IVP SCH (09:00)
[2017-10-04] MEDS: MYCOPHENOLATE MOFETIL 1000 MG PO SCH ×2 (09:00→21:26)
[2017-10-04] MEDS: XANAX PO PRN ×2 (14:00→21:24)
[2017-10-04] MEDS: NORCO 10/325 TAB PO PRN ×2 (14:08→21:25)
--- NOTE | 2017-10-04 18:20 | MRI ---
HISTORY: Left elbow pain and swelling with decreased range of motion Study: MRI left elbow without contrast Comparison: CT performed October 03, 2017 Technique: Multi planar, multi sequence MRI images of the left elbow were reviewed without contrast. Findings: Exam is severely limited secondary to patient inability to tolerate the entire examination with motio n artifact also noted. There is diffuse severe subcutaneous fat edema throughout the distal upper arm and forearm centered dorsally most compatible with cellulitis given the clinical history. There is a thick-walled fluid collection along the olecranon bursa likely indicating infectious olecranon bursi tis with a component of focal subcutaneous fat abscess formation not excluded. Additionally, there is a small joint effusion for which septic arthritis cannot be excluded. There is intramuscular edema/f luid as well consistent with myositis. No focal marrow signal abnormality is seen to suggest osteomye litis at this time but again with limited imaging performed. IMPRESSION: Findings which most likely reflect infectious olecranon bursitis with extensive surrounding celluliti s with a focal soft tissue abscess not excluded and with findings of myositis as well as possible sep tic arthritis but no definite findings to suggest osteomyelitis on this limited exam. Reported By:
[2017-10-04] MEDS: LIPITOR TAB 40 MG PO SCH (21:25)
[2017-10-04] MEDS: COLACE CAP 100 MG PO SCH (21:25)
[2017-10-04 21:53] LABS: CREATININE 0.99 mg/dL (0.70-1.30); VANCOMYCIN,TROUGH 14.8 ug/mL (15-20)
[2017-10-05 04:59] LABS: BASOPHILS % (AUTO) 0.3 % (0.2-1.0); EOSINOPHILS % (AUTO) 0.1 % (0.9-2.9); HEMATOCRIT 29.8 % (42.0-54.0); HEMOGLOBIN 9.6 g/dL (13.5-18.0); LYMPHOCYTES # (AUTO) 1.3 X10^3/uL (1.3-2.9); LYMPHOCYTES % (AUTO) 15.1 % (21.0-51.0); MEAN CORPUSCULAR HEMOGLOBIN 25.2 pg (27.0-34.0); MEAN CORPUSCULAR HGB CONC 32.2 g/dL (33.0-35.0); MEAN CORPUSCULAR VOLUME 78.1 fL (80.0-100.0); MEAN PLATELET VOLUME 7.2 fL (7.4-11.0); MONOCYTES # (AUTO) 0.6 x10^3/uL (0.3-0.8); MONOCYTES % (AUTO) 6.6 % (0.0-13.0); NEUTROPHILS # (AUTO) 6.8 x10^3/uL (2.2-4.8); NEUTROPHILS % (AUTO) 77.9 % (42.0-75.0); PLATELET COUNT 310 X10^3/uL (150.0-450.0); RED BLOOD COUNT 3.82 X10^6/uL (4.7-6.0); RED CELL DISTRIBUTION WIDTH 18.8 % (11.6-16.5); WHITE BLOOD COUNT 8.8 X10^3/uL (3.6-10.0)
[2017-10-05 05:07] LABS: CREATININE 0.72 mg/dL (0.70-1.30); VANCOMYCIN,TROUGH 19.7 ug/mL (15-20)
[2017-10-05 05:11] LABS: ALANINE AMINOTRANSFERASE 28 Units/L (12-78); ALBUMIN 2.9 g/dL (3.4-5.0); ALKALINE PHOSPHATASE 66 Units/L (46-116); ASPARTATE AMINO TRANSFERASE 19 Units/L (15-37); BLOOD UREA NITROGEN 11 mg/dL (7-18); CALCIUM 8.3 mg/dL (8.5-10.1); CARBON DIOXIDE 32.1 mmol/L (21-32); CHLORIDE 104 mmol/L (98-107); COR CA(FOR HYPOALB) 9.2 mg/dL (8.5-10.1); COR NA(FOR HYPERGLY) 143 mmol/L (136-145); CREATININE 0.77 mg/dL (0.70-1.30); SODIUM 143 mmol/L (136-145); TOTAL PROTEIN 6.1 g/dL (6.4-8.2); eGFR BLACK RACES > 60 (>60); eGFR NON BLACK RACES > 60 (>60)
[2017-10-05 05:38] LABS: PLATELET MORPHOLOGY COMMENT NORMAL (NORMAL)
[2017-10-05 05:39] LABS: ANISOCYTOSIS SLIGHT; HYPOCHROMASIA 1+
[2017-10-05] MEDS ORDERED: NS 500 ML IV 500 ML IV ONE (06:11)
[2017-10-05] MEDS: VANCOMYCIN HCL IV SCH ×3 (06:14→22:53)
[2017-10-05] MEDS: PYRIDOSTIGMINE BROMIDE PO SCH ×3 (06:14→21:31)
[2017-10-05] MEDS: [UNRECOGNIZED DRUG - OTHER] IV SCH ×3 (06:14→22:53)
[2017-10-05] MEDS: ZYLOPRIM PO SCH ×2 (08:33→21:29)
[2017-10-05] MEDS: PREDNISONE TAB 20 MG PO SCH (08:33)
[2017-10-05] MEDS: COREG TAB 12.5 MG PO SCH ×2 (08:33→21:28)
[2017-10-05] MEDS: FLOMAX PO SCH (08:33)
[2017-10-05] MEDS: NORVASC TAB 5 MG PO SCH (08:33)
[2017-10-05] MEDS: MICRO K EXTEN CAP 10 MEQ PO SCH (08:33)
[2017-10-05] MEDS: GLUCOTROL XL PO SCH (08:33)
[2017-10-05] MEDS: SYNTHROID 25 mcg TAB PO SCH (08:33)
[2017-10-05] MEDS: NEURONTIN CAP 400 MG PO SCH ×4 (08:33→21:29)
[2017-10-05] MEDS: PROTONIX INJ 40 MG VIAL IVP SCH (08:34)
[2017-10-05] MEDS: MYCOPHENOLATE MOFETIL 1000 MG PO SCH ×2 (08:34→21:30)
[2017-10-05] MEDS: CYMBALTA PO SCH (08:44)
[2017-10-05] MEDS: PULMICORT NEB TX 0.5 MG NEB SCH ×2 (09:07→21:03)
[2017-10-05] MEDS: DUONEB 0.5 MG/3 MG NEB SCH ×4 (09:07→21:03)
--- NOTE | 2017-10-05 10:57 | RAD ---
HISTORY: Preop chest x-ray. Left elbow pain and swelling, decreased range motion Study: Single-view chest, done portably and semi erect. Comparison: 10/03/2017 Findings: The chest images again performed in extreme expiration. This is seen to crowded bronchovascular rhea ngs and accentuate the transverse cardiac diameter. No infiltrate, pleural fluid or pneumothorax is s een. There are changes of prior rotator cuff tendon repair on the left. IMPRESSION: Very expiratory chest. No acute abnormality is seen. Reported By:
--- NOTE | 2017-10-05 12:14 | DR.UPDATE ---
H&P Update History and Physical Update: History and Physical reviewed and patient examined. Changes noted: NO Yes with the following:agree with H&P. will place picc Procedures (ALL) - Central Line Placement PCM.CLCO: written consent Time out performed: Yes Patient placed pm monitor/pulse ox: Yes prep: mask, gown, gloves, other Centrial line prep: chlorhexidine scrub Local anesthsia used: lidocane 1% Ultrasound used for placement: Yes (left basilic) Central line lumen ininserted: double (5 Fr power port. trimmed to 48cm. none exposed) Post procedure: good blood return, all ports aspirated, flushed,capped, sterile dressing applied Post procedure xray: tip oc catheter in good position Patient tolerated procedure: Yes Complications: none
--- NOTE | 2017-10-05 12:19 | RAD ---
Exam: Portable chest 10/05/2017 at 12:10 p.m. History: PICC line placement paragraph comparison Comparison: Previous portable chest radiograph from 10:31 a.m. on the same day Findings: Since the previous exam, a PICC line has been placed via the left upper extremity. The tip of the catheter extends to the superior vena cava. Degree of inspiration is limited resulting in mild compressive changes at the lung bases. Cardiomedia stinal structures are stable. Impression: PICC line has been placed via left upper extremity. Tip extends to the superior vena cava . No other significant interval change. Reported By:
[2017-10-05] MEDS ORDERED: XYLOCAINE 1 % (PLAIN) ONE (15:38)
[2017-10-05] MEDS: NORCO 10/325 TAB PO PRN (18:24)
[2017-10-05] MEDS: LIPITOR TAB 40 MG PO SCH (21:29)
[2017-10-05] MEDS: COLACE CAP 100 MG PO SCH (22:18)
[2017-10-05] MEDS ORDERED: VANCOMYCIN HCL 500 MG VIAL ONE (22:34)
[2017-10-05] MEDS ORDERED: VANCOMYCIN HCL 1 GM VIAL ONE (22:34)
[2017-10-06] MEDS ORDERED: D5W 250 ML IV 250 ML IV ONE (05:35)
[2017-10-06] MEDS ORDERED: VANCOMYCIN HCL 1 GM VIAL ONE (05:35)
[2017-10-06] MEDS ORDERED: VANCOMYCIN HCL 500 MG VIAL ONE (05:35)
[2017-10-06] MEDS: [UNRECOGNIZED DRUG - OTHER] IV SCH (06:13)
[2017-10-06] MEDS: VANCOMYCIN HCL IV SCH (06:13)
[2017-10-06 06:16] LABS: BASOPHILS # (AUTO) 0.1 X10^3/uL (0.0-0.1); EOSINOPHILS % (AUTO) 0.4 % (0.9-2.9); HEMATOCRIT 28.4 % (42.0-54.0); HEMOGLOBIN 9.2 g/dL (13.5-18.0); LYMPHOCYTES # (AUTO) 1.5 X10^3/uL (1.3-2.9); MEAN CORPUSCULAR HEMOGLOBIN 25.4 pg (27.0-34.0); MEAN CORPUSCULAR HGB CONC 32.4 g/dL (33.0-35.0); MEAN CORPUSCULAR VOLUME 78.5 fL (80.0-100.0); MEAN PLATELET VOLUME 7.5 fL (7.4-11.0); MONOCYTES # (AUTO) 0.6 x10^3/uL (0.3-0.8); MONOCYTES % (AUTO) 7.4 % (0.0-13.0); NEUTROPHILS # (AUTO) 5.8 x10^3/uL (2.2-4.8); NEUTROPHILS % (AUTO) 72.2 % (42.0-75.0); PLATELET COUNT 254 X10^3/uL (150.0-450.0); RED BLOOD COUNT 3.62 X10^6/uL (4.7-6.0); RED CELL DISTRIBUTION WIDTH 18.6 % (11.6-16.5)
[2017-10-06] MEDS: PYRIDOSTIGMINE BROMIDE PO SCH (06:17)
[2017-10-06] MEDS: NORCO 10/325 TAB PO PRN (06:23)
[2017-10-06 06:37] LABS: PLATELET MORPHOLOGY COMMENT NORMAL (NORMAL)
[2017-10-06 06:46] LABS: ALANINE AMINOTRANSFERASE 26 Units/L (12-78); ALBUMIN 2.9 g/dL (3.4-5.0); ALKALINE PHOSPHATASE 65 Units/L (46-116); ASPARTATE AMINO TRANSFERASE 21 Units/L (15-37); BLOOD UREA NITROGEN 14 mg/dL (7-18); CALCIUM 8.3 mg/dL (8.5-10.1); CARBON DIOXIDE 31.7 mmol/L (21-32); CHLORIDE 105 mmol/L (98-107); COR CA(FOR HYPOALB) 9.2 mg/dL (8.5-10.1); COR NA(FOR HYPERGLY) 144 mmol/L (136-145); SODIUM 144 mmol/L (136-145); TOTAL PROTEIN 5.8 g/dL (6.4-8.2); eGFR BLACK RACES > 60 (>60); eGFR NON BLACK RACES > 60 (>60)
[2017-10-06 08:17] VITALS: BP 123/61
[2017-10-06] MEDS: FLOMAX PO SCH (08:29)
[2017-10-06] MEDS: NORVASC TAB 5 MG PO SCH (08:29)
[2017-10-06] MEDS: PREDNISONE TAB 20 MG PO SCH (08:29)
[2017-10-06] MEDS: NEURONTIN CAP 400 MG PO SCH (08:29)
[2017-10-06] MEDS: SYNTHROID 25 mcg TAB PO SCH (08:29)
[2017-10-06] MEDS: COREG TAB 12.5 MG PO SCH (08:29)
[2017-10-06] MEDS: GLUCOTROL XL PO SCH (08:29)
[2017-10-06] MEDS: ZYLOPRIM PO SCH (08:29)
[2017-10-06] MEDS: MYCOPHENOLATE MOFETIL 1000 MG PO SCH (08:30)
[2017-10-06] MEDS: MICRO K EXTEN CAP 10 MEQ PO SCH (08:30)
[2017-10-06] MEDS: PROTONIX INJ 40 MG VIAL IVP SCH (08:30)
[2017-10-06] MEDS: CYMBALTA PO SCH (08:30)
[2017-10-06] MEDS: DUONEB 0.5 MG/3 MG NEB SCH (09:34)
[2017-10-06] MEDS: PULMICORT NEB TX 0.5 MG NEB SCH (09:34)
== END 2017-10-06 13:05 | disposition home or self-care (01) | DRG 603 ==
LOC: MED/SURG 11:08
PROVIDERS: ADMIT Internal Medicine; ATTEND Internal Medicine
PROC: 02HV33Z Insertion of Infusion Device into Superior Vena Cava, Percutaneous Approach (ICD-10-PCS; principal; 2017-10-05)
DX: L03.114 Cellulitis of left upper limb (principal); G70.00 Myasthenia gravis without (acute) exacerbation; R25.8 Other abnormal involuntary movements; J44.9 Chronic obstructive pulmonary disease, unspecified; I25.10 Atherosclerotic heart disease of native coronary artery without angina pectoris; D64.89 Other specified anemias; K21.9 Gastro-esophageal reflux disease without esophagitis; E78.2 Mixed hyperlipidemia; I10 Essential (primary) hypertension; M13.89 Other specified arthritis, multiple sites; M54.6 Pain in thoracic spine; L89.522 Pressure ulcer of left ankle, stage 2
CPT/HCPCS: 36415; 71045; 72072; 72110; 73070; 73090; 73130; 73200; 73221; 80053; 80202; 81001; 82565; 85025; 85652; 87070; 87075; 94640; 94760; 96365; 96374; A4222; C9113; J2001; J2175; J2405; J3370; J7506; J7620; J7626

== ENCOUNTER 2017-11-02 08:52 | Emergency (ER) | payer OTHER ==
[2017-11-02 08:55] VITALS: BP 103/65; BMI 30.7
[2017-11-02] MEDS ORDERED: VANCOMYCIN HCL 1 GM VIAL ONE (09:03)
[2017-11-02] MEDS ORDERED: NS 250 ML IV 250 ML IV ONE (09:04)
[2017-11-02] MEDS ORDERED: VANCOMYCIN HCL 500 MG VIAL ONE (09:04)
[2017-11-02] MEDS ORDERED: [UNRECOGNIZED DRUG - OTHER] IV ONE (09:07)
[2017-11-02] MEDS ORDERED: VANCOMYCIN HCL IV ONE (09:07)
[2017-11-02 09:19] LABS: BILIRUBIN,URINE NEGATIVE (NEGATIVE); BLOOD/HEMOGLOBIN,URINE NEGATIVE (NEGATIVE); GLUCOSE, URINE NEGATIVE (NEGATIVE); KETONES,URINE NEGATIVE (NEGATIVE); LEUKOCYTE ESTERASE ,URINE 1+ (NEGATIVE); NITRITES,URINE NEGATIVE (NEGATIVE); PROTEIN,URINE 1+ (NEGATIVE); UROBILINOGEN,URINE NORMAL (NORMAL)
[2017-11-02 09:21] LABS: APPEARANCE,URINE HAZY (CLEAR); COLOR,URINE YELLOW (YELLOW)
[2017-11-02 09:24] LABS: BACTERIA,URINE NEGATIVE /HPF (NEGATIVE); MUCUS,URINE FEW /HPF (NEGATIVE); RBC,URINE 0-2 /HPF (NONE SEEN); SQUAMOUS EPITHELIAL CELL,UR NEGATIVE /HPF (NEGATIVE)
[2017-11-02 09:33] LABS: CREATININE 0.95 mg/dL (0.70-1.30)
--- NOTE | 2017-11-02 09:50 | DR.MBACK ---
HPI - PCP Primary Care Physician: Kylah LANCASTER - Complaint Chief Complaint:: PT. C/O BACK PAIN X 3-4 DAYS. PT. STATES IT STARTED IN LEFT RIB AREA AND HAS RADIATED TO THE CENTER OF HIS BACK. STATES PT. PUSHED A 4- DYSON UP ON A RAMP ABOUT A WEEK AND A HALF AGO. - Source History Provided: Patient - Mode of Arrival Mode of Arrival: Ambulatory - Timing Onset of Chief Complaint: 10/29/17 PMH - PMH Past Medical History: Yes Past Medical History: Arthritis, COPD, Coronary Artery Disease, Dyslipidemia, GERD, Hypertension, Kidney Stones, [place], Sleep Apnea Past Surgical History: Yes Surgical History: Cholecystectomy, Ortho Surgery - Family History History of Family Medical Conditions: Yes Family Medical History: Diabetes Mellitus, Cancer, NC - Social History Does patient currently use any type of tobacco product: No Have you used tobacco products in the last 12 months: No Type of Tobacco Use: None Does any household member use tobacco: No Alcohol Use: None Do you use any recreational Drugs:: No Lives With: Spouse Lives Where: Home - infectious screening In the last 2 months have you had wt loss of >10#?: NO Have you had fever, night sweats or hemotysis?: No Have you traveled outside the country in the last 6 months?: No Isolation: Standard PE - Vital Signs Vitals: Temperature 98.3 F Pulse Rate 78 Respiratory Rate 20 Blood Pressure [Left Arm] 257/88 Blood Pressure [Right Arm] 130/76 Blood Pressure 103/65 O2 Sat by Pulse Oximetry 96 ROR - Labs Reviewed Result Diagrams: 11/02/17 09:13 Laboratory: Creatinine 0.95 mg/dL (0.70-1.30) 11/02/17 09:13 Specimen Type Clean catch urine 11/02/17 09:13 Urine Color Yellow (YELLOW) 11/02/17 09:13 Urine Appearance Hazy (CLEAR) 11/02/17 09:13 Urine pH 5.0 (5.0 - 8.0) 11/02/17 09:13 Ur Specific Flushing 1.020 (1.000-1.030) 11/02/17 09:13 Urine Protein 1+ (NEGATIVE) 11/02/17 09:13 Urine Glucose (UA) Negative (NEGATIVE) 11/02/17 09:13 Urine Ketones Negative (NEGATIVE) 11/02/17 09:13 Urine Occult Blood Negative (NEGATIVE) 11/02/17 09:13 Urine Nitrite Negative (NEGATIVE) 11/02/17 09:13 Urine Bilirubin Negative (NEGATIVE) 11/02/17 09:13 Urine Urobilinogen Normal (NORMAL) 11/02/17 09:13 Ur Leukocyte Esterase 1+ (NEGATIVE) 11/02/17 09:13 Urine RBC 0-2 /HPF (NONE SEEN) 11/02/17 09:13 Urine WBC 3-5 /HPF (NONE SEEN) 11/02/17 09:13 Ur Squamous Epith Cells Negative /HPF (NEGATIVE) 11/02/17 09:13 Urine Bacteria Negative /HPF (NEGATIVE) 11/02/17 09:13 Urine Mucus Few /HPF (NEGATIVE) 11/02/17 09:13 Ur Culture Indicated? No/not indicated 11/02/17 09:13 Vancomycin Trough 15.0 ug/mL (15-20) 11/02/17 09:13 - Diagnosis Discharge Problem: Thoracic spine fracture Qualifiers: Encounter type: initial encounter Thoracic vertebra fracture level: T12 Fracture type: closed Fracture morphology: other fracture Qualified Code(s): S22.088A - Other fracture of T11-T12 vertebra, initial encounter for closed fracture Fracture of lumbar spine Qualifiers: Encounter type: initial encounter Lumbar vertebra fracture level: L3 Fracture type: closed Fracture morphology: other fracture Qualified Code(s): S32.038A - Other fracture of third lumbar vertebra, initial encounter for closed fracture Back pain Qualifiers: Back pain location: thoracic back pain Chronicity: acute Back pain laterality: bilateral Qualified Code(s): M54.6 - Pain in thoracic spine - Discharge Plan Condition: Stable - Follow ups/Referrals Follow ups/Referrals: YG HERNANDEZ [Primary Care Provider] - 3 days - Instructions Instructions: Back Pain, Adult, [id number], Vertebral Fracture, [id number] Additional Instructions: RETURN TO ED IF WORSE PT'S APPT IS ON WEDNESDAY AT 1055 WITH PEPE ALMAZAN [facility] [address] [place] [address] Contact Information
[2017-11-02] MEDS ORDERED: DEMEROL INJ IVP ONE (10:16)
[2017-11-02] MEDS ORDERED: ZOFRAN INJ 4 MG VIAL IVP ONE (10:16)
[2017-11-02] MEDS ORDERED: DEMEROL INJ ONE (10:39)
[2017-11-02] MEDS ORDERED: ZOFRAN INJ 4 MG VIAL ONE (10:39)
--- NOTE | 2017-11-02 11:10 | CT ---
HISTORY: Back pain Study: CT lumbar spine without contrast Comparison: 02/17/2017 Technique: Axial noncontrast images with coronal and sagittal reformats. Dose reduction procedures we re used with mA/kv adjusted for body size. Findings: The bones are osteopenic. There is a compression fracture of L1 progressive when compared with the pr ior examination. There is a compression fracture of L3 also progressive when compared with the prior examination. There is a compression fracture of T12 new when compared with the prior examination. The alignment is normal. The disc levels are evaluated as follows: T11-12 level: There is disc degeneration with vacuum phenomenon present. No compressive disc disease is identified. The neural foramina are patent. The joints are normal. L1-2 level: There is no evidence for compressive disc disease. There is disc degeneration with vacuum phenomenon present. As noted above there is a progressive compression fracture of L1. The fracture n ow involves the basis of the pedicles. Slight posterior displacement of the posterior superior aspect of the tubal body contributes to mild canal stenosis. The neural foramina are patent. Mild facet art hropathy is present bilaterally. L2-3 level: There is disc degeneration with vacuum phenomenon present. Circumferential disc bulging c ontributes along with facet arthropathy to lateral recess narrowing bilaterally. L3-4 level: There is disc degeneration with Vac at non non present. Broad-based disc protrusion contr ibutes along with pedicular shortening and mild facet arthropathy to a mild canal stenosis with later al recess and foraminal narrowing bilaterally. As noted above there is a progressive compression frac ture of L 3 L4-5 level: There is marked disc degeneration with vacuum phenomenon present. Concentric disc bulging contributes along with ligamentous hypertrophy pedicular shortening and facet arthropathy to a moder ate canal stenosis with significant lateral recess and foraminal narrowing left worse than right. L5-S1 level: There is disc degeneration. Broad-based disc bulging contributes along with pedicular sh ortening and facet arthropathy to lateral recess and foraminal narrowing bilaterally and to moderate canal stenosis. IMPRESSION: Progressive compression fractures as described at L1 and L3 New compression fracture T12 Osteopenia Evaluation of each disc level detailed above Reported By:
--- NOTE | 2017-11-02 11:21 | CT ---
HISTORY: Back pain and left rib pain Study: CT thoracic spine without contrast Comparison: Thoracic radiographs performed on 10/01/2017 Technique: Multiple axial images of the thoracic spine were obtained from the thoracic inlet to the t horacolumbar junction. Sagittal and coronal reconstructions were performed and reviewed. Findings: Imaging of the thoracic spine demonstrates a chronic compression fracture involving the T12 vertebral body, with approximately 20-30% loss of vertebral body height centrally and anteriorly. No significa nt retropulsion is appreciated. Partial visualization of a chronic L1 compression fracture is noted a nd will be best described in CT lumbar spine report. There is also a chronic appearing mild anterior wedge deformity of the T11 vertebral body as well. There is an age indeterminate mild compression def ormity involving the T2 superior endplate, with approximately 10% loss of vertebral body height and n o significant retropulsion. There is also an age indeterminate very mild compression fracture involvi ng the T10 superior endplate with minimal loss of vertebral body height centrally. These findings may be correlated with MRI as clinically indicated. Chronic very mild anterior wedging of the T6 vertebr al body is incidentally noted. Multilevel thoracic spondylosis is noted with marginal osteophytosis. There are advanced degenerative endplate changes at T11-T12 level. The posterior elements are intact. IMPRESSION: 1. Age indeterminate mild compression fractures involving the T2 and T10 superior endplates. These f indings may be correlated with MRI as clinically indicated. 2. Chronic compression fractures involving the T11, T12, and L1 vertebral bodies as well as chronic v esme mild anterior wedging of the T6 vertebral body. Reported By:
== END 2017-11-02 14:12 | disposition home or self-care (01) ==
LOC: ER 08:55
DX: S22.088A Other fracture of T11-T12 vertebra, initial encounter for closed fracture (principal); S32.038A Other fracture of third lumbar vertebra, initial encounter for closed fracture; M54.6 Pain in thoracic spine; Y33.XXXA Other specified events, undetermined intent, initial encounter; Y92.9 Unspecified place or not applicable
CPT/HCPCS: 36415; 72128; 72131; 80202; 81001; 82565; 96365; 96374; 96375; 99283; J2175; J2405; J3370

== ENCOUNTER → 2017-11-29 | Outpatient (CLI) | payer OTHER ==
[2017-11-02 08:55] VITALS: BP 103/65
--- NOTE | 2017-11-29 16:02 | MRI ---
HISTORY: Low back pain Study: MRI lumbar spine without contrast Comparison: 11/02/2017 Technique: Multiplanar multi-sequence MRI of the lumbar spine was obtained. Sagittal T1, sagittal T2 , and stir weighted images, axial T1, and axial T2 images were obtained. Findings: Imaging of the lumbar spine demonstrates a compression fracture involving the T12 vertebral body, wit h approximately 10-2020 percent loss of vertebral body height centrally and anteriorly but no signifi cant retropulsion. The compression fracture is likely late subacute to early chronic in age, as there is only minimal edema visualized paralleling the compressed superior endplate. There is also a chron ic mild compression fracture involving the T11 inferior endplate with minimal loss of vertebral body height. A severe compression fractures visualized involving the L1 vertebral body with near vertebra plana. There is a small amount of T2/STIR hyperintense signal centrally, suggesting that the fracture is likely late subacute in age. There is also very mild retropulsion of approximately 4 mm, resultin g in no significant canal stenosis. There is a late subacute to early chronic compression fracture in volving the L3 vertebral body with minimal residual edema paralleling its compressed superior endplat e. A vertical component is visualized traversing the mid aspect of the vertebral body to its inferior endplate. There is approximately 70-80% loss of vertebral body height anteriorly and centrally. Ther e is minimal retropulsion as well. There is minimal retrolisthesis of L3 on L4, L4 on L5, and L5 on S 1, likely secondary to advanced facet arthropathy and degenerative disc disease at these levels. The conus terminates at the L2 level. Evaluation of the pre and paravertebral soft tissues is unremarkabl e. A few small renal cysts are incidentally noted within the right kidney. T12 -- L1: At the T12-L1 level there is facet hypertrophy without significant canal stenosis or neuro foraminal compromise. L1 -- L2: At the L1-L2 level there is facet hypertrophy and broad-based ridging as well as mildly pro minent epidural fat, resulting in mild canal stenosis as well as [id number] bilateral neurofora padmini compromise. L2 -- L3: At the L2-L3 level there is a broad-based disc bulge mildly prominent epidural fat as well as advanced facet hypertrophy and ligamentum flavum thickening, all resulting in severe canal stenosi s but no significant neuroforaminal compromise. L3 -- L4: At the L3-L4 level there is a broad-based disc bulge and mildly prominent epidural fat as w ell as facet hypertrophy and ligamentum flavum thickening which, along with mild listhesis at this le aj, are resulting in severe canal stenosis as well as mild bilateral neuroforaminal compromise. L4 -- L5: At the L4-L5 level there is a broad-based disc bulge and advanced facet hypertrophy which, along with mild listhesis at this level, are resulting in moderate to severe canal stenosis as well a s moderate neuroforaminal compromise on the right and mild neuroforaminal compromise on the left. L5 -- S1: At the L5-S1 level there is a broad-based disc osteophyte as well as advanced facet hypertr ophy which, along with mild listhesis at this level, resulting in moderate to severe neuroforaminal c ompromise on the left and moderate neuroforaminal compromise on the right but no significant canal st enosis. IMPRESSION: 1. Multiple compression fractures within the lumbar and lower thoracic spine, some of which are late subacute to early chronic in age. Please see above discussion for complete details. 2. Advanced multilevel degenerative disc disease and facet arthropathy, resulting in multilevel varyi ng degrees of moderate to severe canal stenoses and neuroforaminal compromise as detailed above. Reported By:
--- NOTE | 2017-12-01 10:15 | MRI ---
HISTORY: Mid back pain Study: MRI thoracic spine without contrast Comparison: CT performed on 11/02/2017 Technique: Multiplanar multi-sequence MRI of the thoracic spine was obtained. Sagittal T1, sagittal T2, and stir weighted images, axial T1, and axial T2 images were obtained. Findings: Imaging of the thoracic spine demonstrates chronic mild compression fractures involving the T1 and T2 vertebral bodies with minimal loss of vertebral body height and no retropulsion of fracture fragment s. There is a compression fracture involving the T10 vertebral body with approximately 10% loss of ve rtebral body height and no retropulsion. The T10 compression fracture is most likely late subacute to early chronic in age, as there is minimal residual edema within the vertebral body. A chronic compre ssion fracture is visualized involving the T11 inferior endplate with minimal loss of vertebral body height and no retropulsion. There is also a compression fracture involving the T12 vertebral body, wi th approximately 20-30% loss of vertebral body height anteriorly and no retropulsion. This T12 compre ssion fracture is likely late subacute to early chronic in age, as there is minimal residual edema pa ralleling the compressed superior endplate. There is mild edema paralleling the T9 inferior endplate which is compatible with an acute to early subacute compression fracture, as there appears to be a fr acture line paralleling the inferior endplate but no significant loss of vertebral body height or ret ropulsion. Vertebral alignment is normal. There is no spondylolisthesis. Multilevel facet hypertrophy is present throughout the thoracic spine. A very small central disc protrusion is present at the T5- T6 level without significant canal stenosis. Very mild broad-based disc bulges and mild disc ridging are present throughout the thoracic spine without significant canal stenosis. At the T9-T10 level the re is moderate neuroforaminal compromise on the left secondary to disc bulge and facet hypertrophy. M oderate bilateral neuroforaminal compromise is present at the T10-T11 level. Thoracic cord signal is normal throughout. Evaluation of the pre and paravertebral soft tissues is grossly unremarkable. IMPRESSION: 1. Several thoracic compression fractures, most of which are chronic. However, there are a few which are most likely late subacute to early chronic in age as well. There is also a likely acute to early subacute mild compression fracture involving the T9 vertebral body. Please see above discussion for c omplete details. Reported By:
== END ==
LOC: RAD 12:50
PROVIDERS: ATTEND Nurse Practitioner Family
DX: M54.14 Radiculopathy, thoracic region (principal); M54.17 Radiculopathy, lumbosacral region; M48.54XS Collapsed vertebra, not elsewhere classified, thoracic region, sequela of fracture; M48.56XS Collapsed vertebra, not elsewhere classified, lumbar region, sequela of fracture; X58.XXXS Exposure to other specified factors, sequela
CPT/HCPCS: 72146; 72148

== ENCOUNTER 2018-05-02 21:15 | Observation (INO) ==
--- NOTE | 2018-05-02 23:06 | RAD ---
Chest, one view Indication: Shortness of breath Comparison: 02/27/2018 Findings: The heart is normal in size for technique. Linear density within the left costophrenic angl e is unchanged, suggestive for scarring. The remainder of the lungs are clear. No significant pleural effusion or pneumothorax is identified. There is no acute osseous abnormality. Impression: No acute cardiopulmonary abnormality or significant interval change. Reported By:
[2018-05-02 23:10] LABS: BASOPHILS # (AUTO) 0.1 X10^3/uL (0.0-0.1); BASOPHILS % (AUTO) 0.8 % (0.2-1.0); EOSINOPHILS % (AUTO) 0.6 % (0.9-2.9); HEMATOCRIT 39.7 % (42.0-54.0); LYMPHOCYTES # (AUTO) 1.6 X10^3/uL (1.3-2.9); LYMPHOCYTES % (AUTO) 24.3 % (21.0-51.0); MEAN CORPUSCULAR HEMOGLOBIN 27.2 pg (27.0-34.0); MEAN CORPUSCULAR HGB CONC 32.7 g/dL (33.0-35.0); MEAN CORPUSCULAR VOLUME 82.9 fL (80.0-100.0); MEAN PLATELET VOLUME 8.1 fL (7.4-11.0); MONOCYTES # (AUTO) 0.7 x10^3/uL (0.3-0.8); MONOCYTES % (AUTO) 10.3 % (0.0-13.0); NEUTROPHILS # (AUTO) 4.1 x10^3/uL (2.2-4.8); PLATELET COUNT 195 X10^3/uL (150.0-450.0); RED BLOOD COUNT 4.78 X10^6/uL (4.7-6.0); RED CELL DISTRIBUTION WIDTH 19.4 % (11.6-16.5); WHITE BLOOD COUNT 6.4 X10^3/uL (3.6-10.0)
[2018-05-02 23:29] LABS: B-TYPE NATRIURETIC PEPTIDE 41.7 pg/mL (0-79)
[2018-05-02 23:42] LABS: ALANINE AMINOTRANSFERASE 38 Units/L (12-78); ALBUMIN 3.6 g/dL (3.4-5.0); ALKALINE PHOSPHATASE 58 Units/L (46-116); ASPARTATE AMINO TRANSFERASE 40 Units/L (15-37); BLOOD UREA NITROGEN 19 mg/dL (7-18); CALCIUM 9.5 mg/dL (8.5-10.1); CARBON DIOXIDE 32.9 mmol/L (21-32); CHLORIDE 98 mmol/L (98-107); COR NA(FOR HYPERGLY) 141 mmol/L (136-145); CREATINE KINASE 51 Units/L (39-308); CREATINE KINASE MB < 1.0 ng/mL (0-4.0); CREATININE 1.68 mg/dL (0.70-1.30); MAGNESIUM 1.8 mg/dL (1.7-2.9); SODIUM 139 mmol/L (136-145); TOTAL PROTEIN 7.9 g/dL (6.4-8.2); TROPONIN I 0.02 ng/mL (0-1.5); eGFR NON BLACK RACES 44 (>60)
[2018-05-02] MEDS ORDERED: K-LYTE EFFERVESCENT PO ONE (23:45)
[2018-05-02] MEDS ORDERED: K-LYTE EFFERVESCENT ONE ×2 (23:46→23:49)
--- NOTE | 2018-05-03 00:47 | DR.SOBA ---
HPI Time Seen Time Seen by Provider: 05/03/18 00:33 Primary Care Physician Primary Care Physician: dr camacho Complaints Chief Complaint:: sob heart hurting Source History Provided: Patient Mode of Arrival Mode of Arrival: Wheelchair Timing Onset of Chief Complaint: 04/29/18 PMH PMH Past Medical History: Yes Past Medical History: Arthritis, Diabetes, GERD, Gout and [place] Past Medical History Comment: mystavis gravis Past Surgical History: Yes Past Surgical History Comment: one stent 3 yrs ago apr Family History History of Family Medical Conditions: Yes Family Medical History: Diabetes Mellitus and Hypertension Social History Does patient currently use any type of tobacco product: No Have you used tobacco products in the last 12 months: No Type of Tobacco Use: Cigarettes How many years tobacco product used: 8 Does any household member use tobacco: No Alcohol Use: None Do you use any recreational Drugs:: No Lives With: Spouse Lives Where: Home infectious screening In the last 2 months have you had wt loss of >10#?: NO Have you had fever, night sweats or hemotysis?: No Have you traveled outside the country in the last 6 months?: No Isolation: Standard PE Vital Signs Vitals: Temperature 98.1 F Pulse Rate [Left Brachial] 78 Pulse Rate 70 Respiratory Rate 20 Blood Pressure [Left Arm] 115/74 Blood Pressure [Right Arm] 146/87 Blood Pressure 106/70 O2 Sat by Pulse Oximetry 98 General Limitations: No Limitations; negative Altered Mental Status General Appearance: Alert and In No Apparent Distress; negative In Distress Eyes Eye exam: Normal Appearance, PERRL and EOMI ENT ENT Exam: Normal Exam, Normal Oropharynx and Normal External Ear Exam Neck Neck Exam: Normal Inspection and Full ROM Chest Chest Inspection: Normal Inspection; negative Tenderness, Rash and Abscess Respiratory Respiratory Exam: Normal Lung Sounds Bilat; negative Accessory Muscle Use and Chest Wall Tenderness Respiratory Exam: Bilateral: Clear to Auscultation Cardiovascular Cardiovascular Exam: Regular Rate and Normal Rhythm; negative Tachycardia Abdominal Exam Abdominal Exam: Normal Inspection, Normal Bowel Sounds and Soft; negative Hyperactive Bowel Sounds, Hypoactive Bowel Sounds, Organomegaly, Trauma, Ascites and Mass Abdominal Tenderness: Mild; negative RUQ, RLQ, LUQ, Epigastrium, Diffuse and Moderate Extremities Extremities Exam: Normal Inspection and Full ROM; negative Tenderness Back Back Exam: Normal Inspection and Full ROM; negative Tenderness, (R) CVA Tenderness, (L) CVA Tenderness, Muscle Spasm and Vertebral Tenderness Neurologic Neurological Exam: Alert, Oriented X3 and CN II-XII Intact Psychiatric Psychiatric Exam: Normal Affect, Normal Mood and Flat Affect Skin Skin Exam: Warm, Dry and Intact ROR Labs Reviewed Result Diagrams: 05/02/18 22:55 05/02/18 22:55 Laboratory: WBC 6.4 X10^3/uL (3.6-10.0) 05/02/18 22:55 RBC 4.78 X10^6/uL (4.7-6.0) 05/02/18 22:55 Hgb 13.0 g/dL (13.5-18.0) L 05/02/18 22:55 Hct 39.7 % (42.0-54.0) L 05/02/18 22:55 MCV 82.9 fL (80.0-100.0) 05/02/18 22:55 MCH 27.2 pg (27.0-34.0) 05/02/18 22:55 MCHC 32.7 g/dL (33.0-35.0) L 05/02/18 22:55 RDW 19.4 % (11.6-16.5) H 05/02/18 22:55 Plt Count 195 X10^3/uL (150.0-450.0) 05/02/18 22:55 MPV 8.1 fL (7.4-11.0) 05/02/18 22:55 Neut % (Auto) 64.0 % (42.0-75.0) 05/02/18 22:55 Lymph % (Auto) 24.3 % (21.0-51.0) 05/02/18 22:55 [place] % (Auto) 10.3 % (0.0-13.0) 05/02/18 22:55 Eos % (Auto) 0.6 % (0.9-2.9) L 05/02/18 22:55 Baso % (Auto) 0.8 % (0.2-1.0) 05/02/18 22:55 Neut # (Auto) 4.1 x10^3/uL (2.2-4.8) 05/02/18 22:55 Lymph # (Auto) 1.6 X10^3/uL (1.3-2.9) 05/02/18 22:55 [place] # (Auto) 0.7 x10^3/uL (0.3-0.8) 05/02/18 22:55 Eos # (Auto) 0.0 x10^3/uL (0.0-0.2) 05/02/18 22:55 Baso # (Auto) 0.1 X10^3/uL (0.0-0.1) 05/02/18 22:55 Absolute Nucleated RBC 0.0 /100WBC 05/02/18 22:55 INR Target Range - 05/02/18: INR 0.96 (0.8-1.3) 05/02/18 22:55 APTT 24.9 SECONDS (22.9-36.5) 05/02/18: PTT Comment - 05/02/18:55 D-Dimer 812 ng/mL (0-400) H* 05/02/18 22:55 Sodium 139 mmol/L (136-145) 05/02/18 22:55 Corrected Sodium 141 mmol/L (136-145) 05/02/18 22:55 Potassium 2.9 mmol/L (3.5-5.1) L* 05/02/18 22:55 Chloride 98 mmol/L (98-107) 05/02/18 22:55 Carbon Dioxide 32.9 mmol/L (21-32) H 05/02/18 22:55 BUN 19 mg/dL (7-18) H 05/02/18 22:55 Creatinine 1.68 mg/dL (0.70-1.30) H 05/02/18 22:55 Est GFR (MDRD) Af Amer 53 (>60) L 05/02/18 22:55 Est GFR (MDRD) Non-Af 44 (>60) L 05/02/18 22:55 Glucose 163 mg/dL (65-99) H 05/02/18 22:55 Calcium 9.5 mg/dL (8.5-10.1) 05/02/18 22:55 Corrected Calcium TNP 05/02/18 22:55 Magnesium 1.8 mg/dL (1.7-2.9) 05/02/18 22:55 Total Bilirubin 0.90 mg/dL (0.2-1.0) 05/02/18 22:55 AST 40 Units/L (15-37) H 05/02/18 22:55 ALT 38 Units/L (12-78) 05/02/18 22:55 Alkaline Phosphatase 58 Units/L (46-116) 05/02/18 22:55 Creatine Kinase 51 Units/L (39-308) 05/02/18 22:55 CK-MB (CK-2) < 1.0 ng/mL (0-4.0) 05/02/18 22:55 CK/CKMB % Calc 2.0 % (<4) 05/02/18 22:55 Troponin I 0.02 ng/mL (0-1.5) 05/02/18 22:55 B-Natriuretic Peptide 41.7 pg/mL (0-79) 05/02/18 22:55 Total Protein 7.9 g/dL (6.4-8.2) 05/02/18 22:55 Albumin 3.6 g/dL (3.4-5.0) 05/02/18 22:55 Globulin 4.3 g/dL (2.5-4.5) 05/02/18 22:55 Albumin/Globulin Ratio 0.8 Ratio (1.1-2.1) L 05/02/18 22:55 Diagnosis Discharge Problem: Elevated d-dimer, Acute hypokalemia
--- NOTE | 2018-05-03 00:51 | DR.SOBA ---
HPI Time Seen Time Seen by Provider: 05/03/18 00:33 Primary Care Physician Primary Care Physician: dr camacho Complaints Chief Complaint:: sob heart hurting Source History Provided: Patient Mode of Arrival Mode of Arrival: Wheelchair Timing Onset of Chief Complaint: 04/29/18 PMH PMH Past Medical History: Yes Past Medical History: Arthritis, Diabetes, GERD, Gout and [place] Past Medical History Comment: mystavis gravis Past Surgical History: Yes Past Surgical History Comment: one stent 3 yrs ago apr Family History History of Family Medical Conditions: Yes Family Medical History: Diabetes Mellitus and Hypertension Social History Does patient currently use any type of tobacco product: No Have you used tobacco products in the last 12 months: No Type of Tobacco Use: Cigarettes How many years tobacco product used: 8 Does any household member use tobacco: No Alcohol Use: None Do you use any recreational Drugs:: No Lives With: Spouse Lives Where: Home infectious screening In the last 2 months have you had wt loss of >10#?: NO Have you had fever, night sweats or hemotysis?: No Have you traveled outside the country in the last 6 months?: No Isolation: Standard PE Vital Signs Vitals: Temperature 98.1 F Pulse Rate [Left Brachial] 78 Pulse Rate 70 Respiratory Rate 20 Blood Pressure [Left Arm] 115/74 Blood Pressure [Right Arm] 146/87 Blood Pressure 106/70 O2 Sat by Pulse Oximetry 98 General Limitations: No Limitations and Language Barrier General Appearance: Alert and In No Apparent Distress; negative In Distress Eyes Eye exam: Normal Appearance, PERRL, EOMI, Conjunctival Injection and Nystagmus ENT ENT Exam: Normal Exam, Normal Oropharynx and Normal External Ear Exam Neck Neck Exam: Normal Inspection and Full ROM Chest Chest Inspection: Normal Inspection and Symmetric Chest Wall Rise Respiratory Respiratory Exam: Normal Lung Sounds Bilat, Accessory Muscle Use and Respiratory Distress Respiratory Exam: Bilateral: Clear to Auscultation Cardiovascular Cardiovascular Exam: Regular Rate and Normal Rhythm Abdominal Exam Abdominal Exam: Normal Inspection, Normal Bowel Sounds and Soft; negative Rebound, Rigidity, Trauma, Ascites and Mass Abdominal Tenderness: RUQ and RLQ; negative LLQ, Epigastrium and Suprapubic Extremities Extremities Exam: Normal Inspection, Full ROM and Normal Capillary Refill; negative Tenderness Back Back Exam: Normal Inspection and Full ROM; negative (R) CVA Tenderness, (L) CVA Tenderness, Muscle Spasm, Paraspinal Tenderness, Vertebral Tenderness and Rashes Neurologic Neurological Exam: Alert, Oriented X3, CN II-XII Intact and Reflexes Normal; negative Motor Sensory Deficit Psychiatric Psychiatric Exam: Normal Affect and Normal Mood; negative Depressed Skin Skin Exam: Dry, Intact and Normal Color; negative Rash, Cyanosis, Diaphoresis, Erythema and Pallor COURSE Consultation Called: 12:35 Consultation Comments: Patient discussed with Dr. García concerning elevated D Dimer; allergic to iodine, needs V/Q scan; he agreed to admit for further evaluation and treatment. ROR Labs Reviewed Laboratory Results Reviewed?: Yes Result Diagrams: 05/02/18 22:55 05/02/18 22:55 Laboratory: WBC 6.4 X10^3/uL (3.6-10.0) 05/02/18 22:55 RBC 4.78 X10^6/uL (4.7-6.0) 05/02/18 22:55 Hgb 13.0 g/dL (13.5-18.0) L 05/02/18 22:55 Hct 39.7 % (42.0-54.0) L 05/02/18 22:55 MCV 82.9 fL (80.0-100.0) 05/02/18 22:55 MCH 27.2 pg (27.0-34.0) 05/02/18 22:55 MCHC 32.7 g/dL (33.0-35.0) L 05/02/18 22:55 RDW 19.4 % (11.6-16.5) H 05/02/18 22:55 Plt Count 195 X10^3/uL (150.0-450.0) 05/02/18 22:55 MPV 8.1 fL (7.4-11.0) 05/02/18 22:55 Neut % (Auto) 64.0 % (42.0-75.0) 05/02/18 22:55 Lymph % (Auto) 24.3 % (21.0-51.0) 05/02/18 22:55 [place] % (Auto) 10.3 % (0.0-13.0) 05/02/18 22:55 Eos % (Auto) 0.6 % (0.9-2.9) L 05/02/18 22:55 Baso % (Auto) 0.8 % (0.2-1.0) 05/02/18 22:55 Neut # (Auto) 4.1 x10^3/uL (2.2-4.8) 05/02/18 22:55 Lymph # (Auto) 1.6 X10^3/uL (1.3-2.9) 05/02/18 22:55 [place] # (Auto) 0.7 x10^3/uL (0.3-0.8) 05/02/18 22:55 Eos # (Auto) 0.0 x10^3/uL (0.0-0.2) 05/02/18 22:55 Baso # (Auto) 0.1 X10^3/uL (0.0-0.1) 05/02/18 22:55 Absolute Nucleated RBC 0.0 /100WBC 05/02/18 22:55 INR Target Range - 05/02/18 22: INR 0.96 (0.8-1.3) 05/02/18 22:55 APTT 24.9 SECONDS (22.9-36.5) 05/02/18 22:55 PTT Comment - 05/02/18 22:55 D-Dimer 812 ng/mL (0-400) H* 05/02/18 22:55 Sodium 139 mmol/L (136-145) 05/02/18 22:55 Corrected Sodium 141 mmol/L (136-145) 05/02/18 22:55 Potassium 2.9 mmol/L (3.5-5.1) L* 05/02/18 22:55 Chloride 98 mmol/L (98-107) 05/02/18 22:55 Carbon Dioxide 32.9 mmol/L (21-32) H 05/02/18 22:55 BUN 19 mg/dL (7-18) H 05/02/18 22:55 Creatinine 1.68 mg/dL (0.70-1.30) H 05/02/18 22:55 Est GFR (MDRD) Af Amer 53 (>60) L 05/02/18 22:55 Est GFR (MDRD) Non-Af 44 (>60) L 05/02/18 22:55 Glucose 163 mg/dL (65-99) H 05/02/18 22:55 Calcium 9.5 mg/dL (8.5-10.1) 05/02/18 22:55 Corrected Calcium TNP 05/02/18 22:55 Magnesium 1.8 mg/dL (1.7-2.9) 05/02/18 22:55 Total Bilirubin 0.90 mg/dL (0.2-1.0) 05/02/18 22:55 AST 40 Units/L (15-37) H 05/02/18 22:55 ALT 38 Units/L (12-78) 05/02/18 22:55 Alkaline Phosphatase 58 Units/L (46-116) 05/02/18 22:55 Creatine Kinase 51 Units/L (39-308) 05/02/18 22:55 CK-MB (CK-2) < 1.0 ng/mL (0-4.0) 05/02/18 22:55 CK/CKMB % Calc 2.0 % (<4) 05/02/18 22:55 Troponin I 0.02 ng/mL (0-1.5) 05/02/18 22:55 B-Natriuretic Peptide 41.7 pg/mL (0-79) 05/02/18 22:55 Total Protein 7.9 g/dL (6.4-8.2) 05/02/18 22:55 Albumin 3.6 g/dL (3.4-5.0) 05/02/18 22:55 Globulin 4.3 g/dL (2.5-4.5) 05/02/18 22:55 Albumin/Globulin Ratio 0.8 Ratio (1.1-2.1) L 05/02/18 22:55 Diagnosis Discharge Problem: Elevated d-dimer, Acute hypokalemia ADDITIONAL NOTES Additional Notes Additional Notes: R/o Pulmonary Embolus
[2018-05-03 05:10] LABS: BASOPHILS # (AUTO) 0.1 X10^3/uL (0.0-0.1); BASOPHILS % (AUTO) 0.9 % (0.2-1.0); EOSINOPHILS # (AUTO) 0.1 x10^3/uL (0.0-0.2); EOSINOPHILS % (AUTO) 1.1 % (0.9-2.9); HEMOGLOBIN 11.7 g/dL (13.5-18.0); LYMPHOCYTES # (AUTO) 1.7 X10^3/uL (1.3-2.9); LYMPHOCYTES % (AUTO) 27.9 % (21.0-51.0); MEAN CORPUSCULAR HEMOGLOBIN 26.7 pg (27.0-34.0); MEAN CORPUSCULAR HGB CONC 32.6 g/dL (33.0-35.0); MEAN CORPUSCULAR VOLUME 81.8 fL (80.0-100.0); MEAN PLATELET VOLUME 8.2 fL (7.4-11.0); MONOCYTES # (AUTO) 0.7 x10^3/uL (0.3-0.8); MONOCYTES % (AUTO) 11.3 % (0.0-13.0); NEUTROPHILS # (AUTO) 3.5 x10^3/uL (2.2-4.8); NEUTROPHILS % (AUTO) 58.8 % (42.0-75.0); PLATELET COUNT 177 X10^3/uL (150.0-450.0); RED BLOOD COUNT 4.41 X10^6/uL (4.7-6.0); RED CELL DISTRIBUTION WIDTH 19.1 % (11.6-16.5); WHITE BLOOD COUNT 5.9 X10^3/uL (3.6-10.0)
[2018-05-03 05:32] LABS: ALANINE AMINOTRANSFERASE 33 Units/L (12-78); ALBUMIN 3.1 g/dL (3.4-5.0); ALKALINE PHOSPHATASE 47 Units/L (46-116); ASPARTATE AMINO TRANSFERASE 35 Units/L (15-37); BLOOD UREA NITROGEN 17 mg/dL (7-18); CHLORIDE 100 mmol/L (98-107); COR CA(FOR HYPOALB) 9.7 mg/dL (8.5-10.1); COR NA(FOR HYPERGLY) 140 mmol/L (136-145); CREATININE 1.27 mg/dL (0.70-1.30); SODIUM 140 mmol/L (136-145); TOTAL PROTEIN 6.8 g/dL (6.4-8.2); eGFR NON BLACK RACES > 60 (>60)
[2018-05-03] MEDS ORDERED: POTASSIUM CHLORIDE LIQ 20 MEQ UDC PO ONE (05:41)
[2018-05-03 07:25] LABS: CKMB % 2.3 % (<4); CREATINE KINASE 43 Units/L (39-308); CREATINE KINASE MB < 1.0 ng/mL (0-4.0); TROPONIN I 0.03 ng/mL (0-1.5)
[2018-05-03] MEDS ORDERED: PROVENTIL NEB TX 0.083% 2.5MG/ 3ML NEB PRN (09:00)
[2018-05-03] MEDS ORDERED: ULTRAM PO PRN (09:16)
[2018-05-03 09:46] LABS: ABG BASE EXCESS 14.4 mmol/L (-2.0-2.0)
[2018-05-03 09:47] LABS: ABG ALLEN TEST POS; ABG HCO3 40.2 mmol/L (22-26); FRACTIONATED INSPIRED OXYGEN 21
--- NOTE | 2018-05-03 13:13 | DR.H&P ---
H&P - History & Physical for Day of: H&P Date: 05/03/18 - Chief Complaint Chief Complaint: SOB - History of Present Illness History of Present Illness: 67 WM ER ADMISSION AFTER PRESENTING WITH CO SOB, PT HAS PMH OF CAD, HTN, OA, COPD, O2 DEPENDANT. PT EVAULATED IN ER, ELEVATED DDIMER, ADMITTED FOR CT CHEST R/O PE, TREATMENT OF ELECTROLYTE IMBALANCE, ADMISSION LABS REVEALED HYPOKALEMIA. - Past Medical History Past Medical History: PR, Diabetes, GERD, Arthritis, Gout Additional Medical History: HX GASTIRIC ULCER, GI BLEED IN JUL 2017, [place] - Past Surgical History Surgical History: Angioplasty/Stents, Cholecystectomy, Ortho Surgery - Family History Family Medical History: Diabetes Mellitus, Hypertension - Social History Does patient currently use any type of tobacco product: No Have you used tobacco products in the last 12 months: No Type of Tobacco Use: Cigarettes How many years tobacco product used: 8 Does any household member use tobacco: No Alcohol Use: None Drug Use: None - Medications Home Medications: iodine Allergy (Verified 09/26/17 21:58) morphine Allergy (Verified 09/26/17 21:58) sitagliptin [From Januvia] Allergy (Verified 02/03/18 09:30) - Review of Systems Constitutional: Weakness Eyes: No Symptoms Reported ENT: No Symptoms Reported Respiratory: Shortness of Breath. denies: Cough Cardiovascular: Chest Pain. denies: Paroxysmal Noc. Dyspnea, Edema, Light Headedness Gastrointestinal: No Symptoms Reported Genitourinary: No Symptoms Reported Musculoskeletal: Back Pain, Leg Pain Skin: Ecchymosis Neurological: Weakness - Physical Exam Vital Signs: Temperature 98.0 F Pulse Rate [Left Brachial] 96 Pulse Rate 97 Respiratory Rate 20 Blood Pressure [Left Arm] 128/72 Blood Pressure [Right Arm] 107/69 Blood Pressure 106/70 O2 Sat by Pulse Oximetry 97 Oriented: Normal Eyes: Normal Ear: Normal Nose: Normal Throat: Dry Respiratory: Wheezes Throughout (MILD DIFFUSE EXP WHEEZES), RLL Diminished, LLL Diminished Cardiovascular: Normal. negative: Edema Auscultation: Bowel Sounds: Normal Palpation: Normal Tenderness: Normal Skin: Decreased Turgur, Bruising Musculoskeletal: Right, Left, Leg, Motor Deficit, Instability Mood Description: Calm Speech Pattern: Clear, Appropriate - Assessment/Plan (1) Respiratory distress Status: Acute Plan: ADMIT, CE, EKG ON ADMISSION. CT CHEST R/O PE, CONTINUE RESP CONSULT, JET NEBS. ELECTROLYTE REPLACEMENT, ABG. SUPPLEMENTAL O2, CONTINUOUS CARDIAC MONITORING (2) Elevated d-dimer Status: Acute (3) Myasthenia gravis Status: Acute (4) CAD (coronary artery disease) Status: Acute (5) COPD (chronic obstructive pulmonary disease) Status: Acute (6) Acute hypokalemia Status: Acute - Allergies Allergies/Adverse Reactions: Allergies Allergy/AdvReac Type Severity Reaction Status Date / Time iodine Allergy Verified 09/26/17 21:58 morphine Allergy Verified 09/26/17 21:58 sitagliptin [From Januvia] Allergy Verified 02/03/18 09:30
[2018-05-03] MEDS ORDERED: K-DUR TAB 20 MEQ PO PRN (13:59)
[2018-05-03] MEDS ORDERED: K-RIDER 10 MEQ/NS 100 ML 10 MEQ/100 ML BAG IV PRN (13:59)
[2018-05-03] MEDS ORDERED: POTASSIUM CHL 60 MEQ/NS 0.45% 500 ML IV PRN (13:59)
[2018-05-03] MEDS ORDERED: POTASSIUM CHL 40 MEQ/NS 0.45% 500 ML IV PRN (13:59)
[2018-05-03] MEDS ORDERED: POTASSIUM CHLORIDE LIQ 20 MEQ UDC PO PRN (13:59)
[2018-05-03] MEDS ORDERED: MICRO K EXTEN CAP 10 MEQ PO PRN (13:59)
[2018-05-03] MEDS ORDERED: KLOR-CON PO PRN (13:59)
[2018-05-03] MEDS: PREDNISONE TAB 10 MG PO SCH (17:29)
[2018-05-03 18:10] VITALS: BMI 31.6
[2018-05-04] MEDS: PREDNISONE TAB 10 MG PO SCH ×2 (00:27→06:24)
[2018-05-04] MEDS ORDERED: BENADRYL CAP 50 MG PO SCH ×2 (02:40→07:00)
[2018-05-04 05:25] LABS: BASOPHILS % (AUTO) 0.1 % (0.2-1.0); HEMATOCRIT 37.3 % (42.0-54.0); HEMOGLOBIN 12.5 g/dL (13.5-18.0); LYMPHOCYTES # (AUTO) 0.8 X10^3/uL (1.3-2.9); LYMPHOCYTES % (AUTO) 12.2 % (21.0-51.0); MEAN CORPUSCULAR HEMOGLOBIN 27.5 pg (27.0-34.0); MEAN CORPUSCULAR HGB CONC 33.5 g/dL (33.0-35.0); MEAN CORPUSCULAR VOLUME 82.1 fL (80.0-100.0); MEAN PLATELET VOLUME 8.2 fL (7.4-11.0); MONOCYTES # (AUTO) 0.1 x10^3/uL (0.3-0.8); NEUTROPHILS # (AUTO) 5.5 x10^3/uL (2.2-4.8); NEUTROPHILS % (AUTO) 85.7 % (42.0-75.0); PLATELET COUNT 183 X10^3/uL (150.0-450.0); RED BLOOD COUNT 4.54 X10^6/uL (4.7-6.0); RED CELL DISTRIBUTION WIDTH 18.6 % (11.6-16.5); WHITE BLOOD COUNT 6.5 X10^3/uL (3.6-10.0)
[2018-05-04 05:45] LABS: ALANINE AMINOTRANSFERASE 33 Units/L (12-78); ALBUMIN 3.1 g/dL (3.4-5.0); ALKALINE PHOSPHATASE 50 Units/L (46-116); ASPARTATE AMINO TRANSFERASE 33 Units/L (15-37); BLOOD UREA NITROGEN 13 mg/dL (7-18); CALCIUM 9.4 mg/dL (8.5-10.1); CARBON DIOXIDE 33.9 mmol/L (21-32); CHLORIDE 97 mmol/L (98-107); COR CA(FOR HYPOALB) 10.1 mg/dL (8.5-10.1); COR NA(FOR HYPERGLY) 140 mmol/L (136-145); CREATININE 0.96 mg/dL (0.70-1.30); SODIUM 137 mmol/L (136-145); eGFR NON BLACK RACES > 60 (>60)
[2018-05-04] MEDS ORDERED: PATIENT'S HOME MEDICATION (Albuterol Sulfate 2 PUFF) INH PRN (08:38)
[2018-05-04] MEDS ORDERED: XANAX PO PRN (08:38)
[2018-05-04] MEDS ORDERED: ACETAMINOPHEN CODEINE PO SCH (08:45)
[2018-05-04] MEDS ORDERED: NORVASC TAB 5 MG PO SCH (09:00)
[2018-05-04] MEDS ORDERED: FLOMAX PO SCH (09:00)
[2018-05-04] MEDS ORDERED: SYNTHROID 25 mcg TAB PO SCH (09:00)
[2018-05-04] MEDS ORDERED: PYRIDOSTIGMINE BROMIDE PO SCH (09:00)
[2018-05-04] MEDS ORDERED: COREG TAB 12.5 MG PO SCH (09:00)
[2018-05-04] MEDS ORDERED: CYMBALTA PO SCH (09:00)
[2018-05-04] MEDS ORDERED: ZYLOPRIM PO SCH (09:00)
[2018-05-04] MEDS ORDERED: GLUCOTROL XL PO SCH (09:00)
[2018-05-04] MEDS ORDERED: MICRO K EXTEN CAP 10 MEQ PO SCH (09:00)
[2018-05-04] MEDS ORDERED: NEURONTIN CAP 400 MG PO SCH (09:00)
[2018-05-04] MEDS ORDERED: TYLENOL #3 TAB (W/CODEINE) PO PRN (09:10)
[2018-05-04] MEDS ORDERED: TYLENOL #3 TAB (W/CODEINE) PO ONE (10:07)
--- NOTE | 2018-05-04 11:05 | NM ---
HISTORY: 67-year-old male with shortness of breath. Study: Nuclear Medicine Ventilation Perfusion Study Comparison: V/Q scan 09/28/2017, chest radiograph this date. Technique: After the administration of 5.6 mCi of technetium 99m MAA followed by inhalation of 30.1 m Ci of technetium 99m DTPA, anterior, posterior, and lateral perfusion and ventilation images were sub mitted. Findings: Evaluation of perfusion physiology demonstrates no significant segmental or subsegmental defect to covarrubias ggest pulmonary embolus. Mild central clumping of the radiotracer on ventilation imaging is again not ed consistent with COPD. Otherwise ventilation physiology is unremarkable with homogeneous radiotrace r throughout the right and left hemithorax. IMPRESSION: 1. Low probability V/Q scan. 2. Unchanged findings consistent with COPD. Reported By:
[2018-05-04 11:12] LABS: CKMB % 2.9 % (<4); CREATINE KINASE 34 Units/L (39-308); CREATINE KINASE MB < 1.0 ng/mL (0-4.0); TROPONIN I < 0.02 ng/mL (0-1.5)
[2018-05-04] MEDS ORDERED: ULTRAM PO SCH (12:00)
[2018-05-04 12:01] VITALS: BP 116/78
[2018-05-04] MEDS ORDERED: SNACK - Diabetic Appropriate PO SCH (20:00)
[2018-05-04] MEDS ORDERED: LIPITOR TAB 40 MG PO SCH (21:00)
[2018-05-05] MEDS ORDERED: PREDNISONE TAB 5 MG PO SCH (09:00)
--- NOTE | 2018-05-18 10:35 | DR.SOBA ---
HPI Time Seen Time Seen by Provider: 05/03/18 00:33 Primary Care Physician Primary Care Physician: dr camacho Complaints Chief Complaint:: sob heart hurting Source History Provided: Patient Mode of Arrival Mode of Arrival: Wheelchair Timing Onset of Chief Complaint: 04/29/18 PMH PMH Past Medical History: Arthritis, Diabetes, GERD, Gout and [place] Surgical History: Angioplasty/Stents, Cholecystectomy and Ortho Surgery Family History History of Family Medical Conditions: Yes Family Medical History: Diabetes Mellitus and Hypertension Social History Does patient currently use any type of tobacco product: No Have you used tobacco products in the last 12 months: No Type of Tobacco Use: Cigarettes How many years tobacco product used: 8 Does any household member use tobacco: No Alcohol Use: None Do you use any recreational Drugs:: No Lives With: Spouse Lives Where: Home infectious screening In the last 2 months have you had wt loss of >10#?: NO Have you had fever, night sweats or hemotysis?: No Have you traveled outside the country in the last 6 months?: No Isolation: Standard PE Vital Signs Vitals: Temperature 97.9 F Pulse Rate [Right Brachial] 88 Pulse Rate [Left Brachial] 96 Pulse Rate 98 Respiratory Rate 20 Blood Pressure [Left Arm] 116/78 Blood Pressure [Right Arm] 118/82 Blood Pressure 106/70 O2 Sat by Pulse Oximetry 94 General Limitations: No Limitations Head Head Exam: Normal Inspection, Atraumatic and Normocephalic Eyes Eye exam: Normal Appearance, PERRL and EOMI ENT ENT Exam: Normal Exam, Normal Oropharynx and Normal External Ear Exam Chest Chest Inspection: Normal Inspection and Symmetric Chest Wall Rise Respiratory Respiratory Exam: Normal Lung Sounds Bilat and Accessory Muscle Use Respiratory Exam: Bilateral: Clear to Auscultation Cardiovascular Cardiovascular Exam: Regular Rate Abdominal Exam Abdominal Exam: Normal Inspection, Normal Bowel Sounds and Soft Abdominal Tenderness: RUQ, RLQ and LUQ Extremities Extremities Exam: Normal Inspection and Full ROM Back Back Exam: Normal Inspection Neurologic Neurological Exam: Alert, Oriented X3, CN II-XII Intact and Normal Gait Psychiatric Psychiatric Exam: Normal Affect and Normal Mood Skin Skin Exam: Warm, Dry and Intact ROR Labs Reviewed Result Diagrams: 05/04/18 04:45 05/04/18 04:45 Laboratory: 05/02/18 23:00 Blood Blood Culture - Final 05/02/18 22:55 Blood Blood Culture - Final WBC 6.5 X10^3/uL (3.6-10.0) 05/04/18 04:45 RBC 4.54 X10^6/uL (4.7-6.0) L 05/04/18 04:45 Hgb 12.5 g/dL (13.5-18.0) L 05/04/18 04:45 Hct 37.3 % (42.0-54.0) L 05/04/18 04:45 MCV 82.1 fL (80.0-100.0) 05/04/18 04:45 MCH 27.5 pg (27.0-34.0) 05/04/18 04:45 MCHC 33.5 g/dL (33.0-35.0) 05/04/18 04:45 RDW 18.6 % (11.6-16.5) H 05/04/18 04:45 Plt Count 183 X10^3/uL (150.0-450.0) 05/04/18 04:45 MPV 8.2 fL (7.4-11.0) 05/04/18 04:45 Neut % (Auto) 85.7 % (42.0-75.0) H 05/04/18 04:45 Lymph % (Auto) 12.2 % (21.0-51.0) L 05/04/18 04:45 [place] % (Auto) 2.0 % (0.0-13.0) 05/04/18 04:45 Eos % (Auto) 0.0 % (0.9-2.9) L 05/04/18 04:45 Baso % (Auto) 0.1 % (0.2-1.0) L 05/04/18 04:45 Neut # (Auto) 5.5 x10^3/uL (2.2-4.8) H 05/04/18 04:45 Lymph # (Auto) 0.8 X10^3/uL (1.3-2.9) L 05/04/18 04:45 [place] # (Auto) 0.1 x10^3/uL (0.3-0.8) L 05/04/18 04:45 Eos # (Auto) 0.0 x10^3/uL (0.0-0.2) 05/04/18 04:45 Baso # (Auto) 0.0 X10^3/uL (0.0-0.1) 05/04/18 04:45 Absolute Nucleated RBC 0.1 /100WBC 05/04/18 04:45 INR Target Range - 05/02/18 22:55 INR 0.96 (0.8-1.3) 05/02/18 22:55 APTT 24.9 SECONDS (22.9-36.5) 05/02/18 22:55 PTT Comment - 05/02/18 22:55 D-Dimer 812 ng/mL (0-400) H* 05/02/18 22:55 Sample Site Lr 05/03/18 09:30 ABG pH 7.480 (7.35-7.45) H 05/03/18 09:30 ABG pCO2 54.0 mmHg (35.0-45.0) H* 05/03/18 09:30 ABG pO2 81.0 mmHg (80.0-100.0) 05/03/18 09:30 ABG HCO3 40.2 mmol/L (22-26) H* 05/03/18 09:30 ABG O2 Saturation 97.0 % (90-100) 05/03/18 09:30 ABG Base Excess 14.4 mmol/L (-2.0-2.0) H 05/03/18 09:30 Tanner Test Pos 05/03/18 09:30 A-a Gradient 1.0 mmHg 05/03/18 09:30 FiO2 21 05/03/18 09:30 Blood Gas Comments Pt madhu well elj 05/03/18 09:30 Sodium 137 mmol/L (136-145) 05/04/18 04:45 Corrected Sodium 140 mmol/L (136-145) 05/04/18 04:45 Potassium 4.1 mmol/L (3.5-5.1) 05/04/18 04:45 Chloride 97 mmol/L (98-107) L 05/04/18 04:45 Carbon Dioxide 33.9 mmol/L (21-32) H 05/04/18 04:45 BUN 13 mg/dL (7-18) 05/04/18 04:45 Creatinine 0.96 mg/dL (0.70-1.30) 05/04/18 04:45 Est GFR (MDRD) Af Amer > 60 (>60) 05/04/18 04:45 Est GFR (MDRD) Non-Af > 60 (>60) 05/04/18 04:45 Glucose 212 mg/dL (65-99) H 05/04/18 04:45 Calcium 9.4 mg/dL (8.5-10.1) 05/04/18 04:45 Corrected Calcium 10.1 mg/dL (8.5-10.1) 05/04/18 04:45 Magnesium 1.9 mg/dL (1.7-2.9) 05/03/18 08:08 Total Bilirubin 0.60 mg/dL (0.2-1.0) 05/04/18 04:45 AST 33 Units/L (15-37) 05/04/18 04:45 ALT 33 Units/L (12-78) 05/04/18 04:45 Alkaline Phosphatase 50 Units/L (46-116) 05/04/18 04:45 Creatine Kinase 34 Units/L (39-308) L 05/04/18 10:40 CK-MB (CK-2) < 1.0 ng/mL (0-4.0) 05/04/18 10:40 CK/CKMB % Calc 2.9 % (<4) 05/04/18 10:40 Troponin I < 0.02 ng/mL (0-1.5) 05/04/18 10:40 B-Natriuretic Peptide 41.7 pg/mL (0-79) 05/02/18 22:55 Total Protein 7.0 g/dL (6.4-8.2) 05/04/18 04:45 Albumin 3.1 g/dL (3.4-5.0) L 05/04/18 04:45 Globulin 3.9 g/dL (2.5-4.5) 05/04/18 04:45 Albumin/Globulin Ratio 0.8 Ratio (1.1-2.1) L 05/04/18 04:45 Diagnosis Discharge Problem: Elevated d-dimer, Acute hypokalemia Instructions Instructions: Shortness of Breath, Adult, [id number] Nonspecific Chest Pain, [id number] Forms: Patient Portal
--- NOTE | 2018-06-14 11:59 | DR.SOBA ---
HPI Time Seen Time Seen by Provider: 05/03/18 00:33 Primary Care Physician Primary Care Physician: dr camacho Complaints Chief Complaint:: sob heart hurting Source History Provided: Patient Mode of Arrival Mode of Arrival: Wheelchair Timing Onset of Chief Complaint: 04/29/18 PMH PMH Past Medical History: Arthritis, Diabetes, GERD, Gout and [place] Surgical History: Angioplasty/Stents, Cholecystectomy and Ortho Surgery Family History History of Family Medical Conditions: Yes Family Medical History: Diabetes Mellitus and Hypertension Social History Does patient currently use any type of tobacco product: No Have you used tobacco products in the last 12 months: No Type of Tobacco Use: Cigarettes How many years tobacco product used: 8 Does any household member use tobacco: No Alcohol Use: None Do you use any recreational Drugs:: No Lives With: Spouse Lives Where: Home infectious screening In the last 2 months have you had wt loss of >10#?: NO Have you had fever, night sweats or hemotysis?: No Have you traveled outside the country in the last 6 months?: No Isolation: Standard PE Vital Signs Vitals: Temperature 97.9 F Pulse Rate [Right Brachial] 88 Pulse Rate [Left Brachial] 96 Pulse Rate 98 Respiratory Rate 20 Blood Pressure [Left Arm] 116/78 Blood Pressure [Right Arm] 118/82 Blood Pressure 106/70 O2 Sat by Pulse Oximetry 94 General Limitations: No Limitations General Appearance: In No Apparent Distress Head Head Exam: Normal Inspection, Atraumatic and Normocephalic Eyes Eye exam: Normal Appearance, PERRL and EOMI ENT ENT Exam: Normal Exam and Normal Oropharynx Neck Neck Exam: Normal Inspection and Full ROM Chest Chest Inspection: Normal Inspection and Symmetric Chest Wall Rise Respiratory Respiratory Exam: Normal Lung Sounds Bilat and Accessory Muscle Use Respiratory Exam: Bilateral: Rhonchi Cardiovascular Cardiovascular Exam: Regular Rate and Normal Rhythm Abdominal Exam Abdominal Exam: Normal Inspection and Normal Bowel Sounds Abdominal Tenderness: RUQ, RLQ, LUQ and Epigastrium Extremities Extremities Exam: Normal Inspection and Full ROM Back Back Exam: Normal Inspection and Full ROM Skin Skin Exam: Warm, Dry and Intact COURSE Treatment Treatment: Elevated D Dimer, negative for PE ROR Labs Reviewed Laboratory Results Reviewed?: Yes Result Diagrams: 05/04/18 04:45 05/04/18 04:45 Laboratory: 05/02/18 23:00 Blood Blood Culture - Final 05/02/18 22:55 Blood Blood Culture - Final WBC 6.5 X10^3/uL (3.6-10.0) 05/04/18 04:45 RBC 4.54 X10^6/uL (4.7-6.0) L 05/04/18 04:45 Hgb 12.5 g/dL (13.5-18.0) L 05/04/18 04:45 Hct 37.3 % (42.0-54.0) L 05/04/18 04:45 MCV 82.1 fL (80.0-100.0) 05/04/18 04:45 MCH 27.5 pg (27.0-34.0) 05/04/18 04:45 MCHC 33.5 g/dL (33.0-35.0) 05/04/18 04:45 RDW 18.6 % (11.6-16.5) H 05/04/18 04:45 Plt Count 183 X10^3/uL (150.0-450.0) 05/04/18 04:45 MPV 8.2 fL (7.4-11.0) 05/04/18 04:45 Neut % (Auto) 85.7 % (42.0-75.0) H 05/04/18 04:45 Lymph % (Auto) 12.2 % (21.0-51.0) L 05/04/18 04:45 [place] % (Auto) 2.0 % (0.0-13.0) 05/04/18 04:45 Eos % (Auto) 0.0 % (0.9-2.9) L 05/04/18 04:45 Baso % (Auto) 0.1 % (0.2-1.0) L 05/04/18 04:45 Neut # (Auto) 5.5 x10^3/uL (2.2-4.8) H 05/04/18 04:45 Lymph # (Auto) 0.8 X10^3/uL (1.3-2.9) L 05/04/18 04:45 [place] # (Auto) 0.1 x10^3/uL (0.3-0.8) L 05/04/18 04:45 Eos # (Auto) 0.0 x10^3/uL (0.0-0.2) 05/04/18 04:45 Baso # (Auto) 0.0 X10^3/uL (0.0-0.1) 05/04/18 04:45 Absolute Nucleated RBC 0.1 /100WBC 05/04/18 04:45 INR Target Range - 05/02/18 22:55 INR 0.96 (0.8-1.3) 05/02/18 22:55 APTT 24.9 SECONDS (22.9-36.5) 05/02/18 22:55 PTT Comment - 05/02/18 22:55 D-Dimer 812 ng/mL (0-400) H* 05/02/18 22:55 Sample Site Lr 05/03/18 09:30 ABG pH 7.480 (7.35-7.45) H 05/03/18 09:30 ABG pCO2 54.0 mmHg (35.0-45.0) H* 05/03/18 09:30 ABG pO2 81.0 mmHg (80.0-100.0) 05/03/18 09:30 ABG HCO3 40.2 mmol/L (22-26) H* 05/03/18 09:30 ABG O2 Saturation 97.0 % (90-100) 05/03/18 09:30 ABG Base Excess 14.4 mmol/L (-2.0-2.0) H 05/03/18 09:30 Tanner Test Pos 05/03/18 09:30 A-a Gradient 1.0 mmHg 05/03/18 09:30 FiO2 21 05/03/18 09:30 Blood Gas Comments Pt madhu well elj 05/03/18 09:30 Sodium 137 mmol/L (136-145) 05/04/18 04:45 Corrected Sodium 140 mmol/L (136-145) 05/04/18 04:45 Potassium 4.1 mmol/L (3.5-5.1) 05/04/18 04:45 Chloride 97 mmol/L (98-107) L 05/04/18 04:45 Carbon Dioxide 33.9 mmol/L (21-32) H 05/04/18 04:45 BUN 13 mg/dL (7-18) 05/04/18 04:45 Creatinine 0.96 mg/dL (0.70-1.30) 05/04/18 04:45 Est GFR (MDRD) Af Amer > 60 (>60) 05/04/18 04:45 Est GFR (MDRD) Non-Af > 60 (>60) 05/04/18 04:45 Glucose 212 mg/dL (65-99) H 05/04/18 04:45 Calcium 9.4 mg/dL (8.5-10.1) 05/04/18 04:45 Corrected Calcium 10.1 mg/dL (8.5-10.1) 05/04/18 04:45 Magnesium 1.9 mg/dL (1.7-2.9) 05/03/18 08:08 Total Bilirubin 0.60 mg/dL (0.2-1.0) 05/04/18 04:45 AST 33 Units/L (15-37) 05/04/18 04:45 ALT 33 Units/L (12-78) 05/04/18 04:45 Alkaline Phosphatase 50 Units/L (46-116) 05/04/18 04:45 Creatine Kinase 34 Units/L (39-308) L 05/04/18 10:40 CK-MB (CK-2) < 1.0 ng/mL (0-4.0) 05/04/18 10:40 CK/CKMB % Calc 2.9 % (<4) 05/04/18 10:40 Troponin I < 0.02 ng/mL (0-1.5) 05/04/18 10:40 B-Natriuretic Peptide 41.7 pg/mL (0-79) 05/02/18 22:55 Total Protein 7.0 g/dL (6.4-8.2) 05/04/18 04:45 Albumin 3.1 g/dL (3.4-5.0) L 05/04/18 04:45 Globulin 3.9 g/dL (2.5-4.5) 05/04/18 04:45 Albumin/Globulin Ratio 0.8 Ratio (1.1-2.1) L 05/04/18 04:45 Diagnosis Discharge Problem: Elevated d-dimer, Acute hypokalemia Instructions Instructions: Shortness of Breath, Adult, [id number] Nonspecific Chest Pain, [id number] Forms: Patient Portal
--- NOTE | 2018-06-14 12:03 | DR.SOBA ---
HPI Time Seen Time Seen by Provider: 05/03/18 00:33 Primary Care Physician Primary Care Physician: dr camacho Complaints Chief Complaint:: sob heart hurting Source History Provided: Patient Mode of Arrival Mode of Arrival: Wheelchair Timing Onset of Chief Complaint: 04/29/18 PMH PMH Past Medical History: Arthritis, Diabetes, GERD, Gout and [place] Surgical History: Angioplasty/Stents, Cholecystectomy and Ortho Surgery Family History History of Family Medical Conditions: Yes Family Medical History: Diabetes Mellitus and Hypertension Social History Does patient currently use any type of tobacco product: No Have you used tobacco products in the last 12 months: No Type of Tobacco Use: Cigarettes How many years tobacco product used: 8 Does any household member use tobacco: No Alcohol Use: None Do you use any recreational Drugs:: No Lives With: Spouse Lives Where: Home infectious screening In the last 2 months have you had wt loss of >10#?: NO Have you had fever, night sweats or hemotysis?: No Have you traveled outside the country in the last 6 months?: No Isolation: Standard [place] Vital Signs Vitals: Temperature 97.9 F Pulse Rate [Right Brachial] 88 Pulse Rate [Left Brachial] 96 Pulse Rate 98 Respiratory Rate 20 Blood Pressure [Left Arm] 116/78 Blood Pressure [Right Arm] 118/82 Blood Pressure 106/70 O2 Sat by Pulse Oximetry 94 General Limitations: No Limitations General Appearance: Alert and In No Apparent Distress Head Head Exam: Normal Inspection, Atraumatic and Normocephalic Eyes Eye exam: Normal Appearance, PERRL and EOMI ENT ENT Exam: Normal Exam and Normal Oropharynx Neck Neck Exam: Normal Inspection and Full ROM Chest Chest Inspection: Normal Inspection and Symmetric Chest Wall Rise Respiratory Respiratory Exam: Prolonged Expiratory Phase Respiratory Exam: Bilateral: Rhonchi Cardiovascular Cardiovascular Exam: Regular Rate and Normal Rhythm Abdominal Exam Abdominal Exam: Normal Inspection, Normal Bowel Sounds and Soft Abdominal Tenderness: RUQ Extremities Extremities Exam: Normal Inspection Back Back Exam: Normal Inspection and Full ROM Neurologic Neurological Exam: Alert, Oriented X3 and CN II-XII Intact Psychiatric Psychiatric Exam: Normal Affect and Normal Mood Skin Skin Exam: Warm, Dry and Intact ROR Labs Reviewed Result Diagrams: 05/04/18 04:45 05/04/18 04:45 Laboratory: 05/02/18 23:00 Blood Blood Culture - Final 05/02/18 22:55 Blood Blood Culture - Final WBC 6.5 X10^3/uL (3.6-10.0) 05/04/18 04:45 RBC 4.54 X10^6/uL (4.7-6.0) L 05/04/18 04:45 Hgb 12.5 g/dL (13.5-18.0) L 05/04/18 04:45 Hct 37.3 % (42.0-54.0) L 05/04/18 04:45 MCV 82.1 fL (80.0-100.0) 05/04/18 04:45 MCH 27.5 pg (27.0-34.0) 05/04/18 04:45 MCHC 33.5 g/dL (33.0-35.0) 05/04/18 04:45 RDW 18.6 % (11.6-16.5) H 05/04/18 04:45 Plt Count 183 X10^3/uL (150.0-450.0) 05/04/18 04:45 MPV 8.2 fL (7.4-11.0) 05/04/18 04:45 Neut % (Auto) 85.7 % (42.0-75.0) H 05/04/18 04:45 Lymph % (Auto) 12.2 % (21.0-51.0) L 05/04/18 04:45 [place] % (Auto) 2.0 % (0.0-13.0) 05/04/18 04:45 Eos % (Auto) 0.0 % (0.9-2.9) L 05/04/18 04:45 Baso % (Auto) 0.1 % (0.2-1.0) L 05/04/18 04:45 Neut # (Auto) 5.5 x10^3/uL (2.2-4.8) H 05/04/18 04:45 Lymph # (Auto) 0.8 X10^3/uL (1.3-2.9) L 05/04/18 04:45 [place] # (Auto) 0.1 x10^3/uL (0.3-0.8) L 05/04/18 04:45 Eos # (Auto) 0.0 x10^3/uL (0.0-0.2) 05/04/18 04:45 Baso # (Auto) 0.0 X10^3/uL (0.0-0.1) 05/04/18 04:45 Absolute Nucleated RBC 0.1 /100WBC 05/04/18 04:45 INR Target Range - 05/02/18 22:55 INR 0.96 (0.8-1.3) 05/02/18 22:55 APTT 24.9 SECONDS (22.9-36.5) 05/02/18 22:55 PTT Comment - 05/02/18 22:55 D-Dimer 812 ng/mL (0-400) H* 05/02/18 22:55 Sample Site Lr 05/03/18 09:30 ABG pH 7.480 (7.35-7.45) H 05/03/18 09:30 ABG pCO2 54.0 mmHg (35.0-45.0) H* 05/03/18 09:30 ABG pO2 81.0 mmHg (80.0-100.0) 05/03/18 09:30 ABG HCO3 40.2 mmol/L (22-26) H* 05/03/18 09:30 ABG O2 Saturation 97.0 % (90-100) 05/03/18 09:30 ABG Base Excess 14.4 mmol/L (-2.0-2.0) H 05/03/18 09:30 Tanner Test Pos 05/03/18 09:30 A-a Gradient 1.0 mmHg 05/03/18 09:30 FiO2 21 05/03/18 09:30 Blood Gas Comments Pt madhu well elj 05/03/18 09:30 Sodium 137 mmol/L (136-145) 05/04/18 04:45 Corrected Sodium 140 mmol/L (136-145) 05/04/18 04:45 Potassium 4.1 mmol/L (3.5-5.1) 05/04/18 04:45 Chloride 97 mmol/L (98-107) L 05/04/18 04:45 Carbon Dioxide 33.9 mmol/L (21-32) H 05/04/18 04:45 BUN 13 mg/dL (7-18) 05/04/18 04:45 Creatinine 0.96 mg/dL (0.70-1.30) 05/04/18 04:45 Est GFR (MDRD) Af Amer > 60 (>60) 05/04/18 04:45 Est GFR (MDRD) Non-Af > 60 (>60) 05/04/18 04:45 Glucose 212 mg/dL (65-99) H 05/04/18 04:45 Calcium 9.4 mg/dL (8.5-10.1) 05/04/18 04:45 Corrected Calcium 10.1 mg/dL (8.5-10.1) 05/04/18 04:45 Magnesium 1.9 mg/dL (1.7-2.9) 05/03/18 08:08 Total Bilirubin 0.60 mg/dL (0.2-1.0) 05/04/18 04:45 AST 33 Units/L (15-37) 05/04/18 04:45 ALT 33 Units/L (12-78) 05/04/18 04:45 Alkaline Phosphatase 50 Units/L (46-116) 05/04/18 04:45 Creatine Kinase 34 Units/L (39-308) L 05/04/18 10:40 CK-MB (CK-2) < 1.0 ng/mL (0-4.0) 05/04/18 10:40 CK/CKMB % Calc 2.9 % (<4) 05/04/18 10:40 Troponin I < 0.02 ng/mL (0-1.5) 05/04/18 10:40 B-Natriuretic Peptide 41.7 pg/mL (0-79) 05/02/18 22:55 Total Protein 7.0 g/dL (6.4-8.2) 05/04/18 04:45 Albumin 3.1 g/dL (3.4-5.0) L 05/04/18 04:45 Globulin 3.9 g/dL (2.5-4.5) 05/04/18 04:45 Albumin/Globulin Ratio 0.8 Ratio (1.1-2.1) L 05/04/18 04:45 Diagnosis Discharge Problem: Elevated d-dimer, Acute hypokalemia Instructions Instructions: Shortness of Breath, Adult, [id number] Nonspecific Chest Pain, Gyar-nf-Icce Forms: Patient Portal
--- NOTE | 2018-06-14 12:08 | DR.SOBA ---
HPI Time Seen Time Seen by Provider: 05/03/18 00:33 Primary Care Physician Primary Care Physician: dr camacho Complaints Chief Complaint:: sob heart hurting Source History Provided: Patient Mode of Arrival Mode of Arrival: Wheelchair Timing Onset of Chief Complaint: 04/29/18 PMH PMH Past Medical History: Arthritis, Diabetes, GERD, Gout and [place] Surgical History: Angioplasty/Stents, Cholecystectomy and Ortho Surgery Family History History of Family Medical Conditions: Yes Family Medical History: Diabetes Mellitus and Hypertension Social History Does patient currently use any type of tobacco product: No Have you used tobacco products in the last 12 months: No Type of Tobacco Use: Cigarettes How many years tobacco product used: 8 Does any household member use tobacco: No Alcohol Use: None Do you use any recreational Drugs:: No Lives With: Spouse Lives Where: Home infectious screening In the last 2 months have you had wt loss of >10#?: NO Have you had fever, night sweats or hemotysis?: No Have you traveled outside the country in the last 6 months?: No Isolation: Standard [place] Vital Signs Vitals: Temperature 97.9 F Pulse Rate [Right Brachial] 88 Pulse Rate [Left Brachial] 96 Pulse Rate 98 Respiratory Rate 20 Blood Pressure [Left Arm] 116/78 Blood Pressure [Right Arm] 118/82 Blood Pressure 106/70 O2 Sat by Pulse Oximetry 94 General General Appearance: Alert and In No Apparent Distress Head Head Exam: Normal Inspection, Atraumatic and Normocephalic Eyes Eye exam: Normal Appearance, PERRL and EOMI ENT ENT Exam: Normal Exam and Normal Oropharynx Neck Neck Exam: Normal Inspection Chest Chest Inspection: Normal Inspection and Symmetric Chest Wall Rise Respiratory Respiratory Exam: Normal Lung Sounds Bilat Respiratory Exam: Bilateral: Clear to Auscultation Cardiovascular Cardiovascular Exam: Regular Rate and Normal Rhythm Abdominal Exam Abdominal Exam: Normal Inspection, Normal Bowel Sounds and Soft Extremities Extremities Exam: Normal Inspection and Full ROM Neurologic Neurological Exam: Alert, Oriented X3 and CN II-XII Intact Psychiatric Psychiatric Exam: Normal Affect and Normal Mood ROR Labs Reviewed Result Diagrams: 05/04/18 04:45 05/04/18 04:45 Laboratory: 05/02/18 23:00 Blood Blood Culture - Final 05/02/18 22:55 Blood Blood Culture - Final WBC 6.5 X10^3/uL (3.6-10.0) 05/04/18 04:45 RBC 4.54 X10^6/uL (4.7-6.0) L 05/04/18 04:45 Hgb 12.5 g/dL (13.5-18.0) L 05/04/18 04:45 Hct 37.3 % (42.0-54.0) L 05/04/18 04:45 MCV 82.1 fL (80.0-100.0) 05/04/18 04:45 MCH 27.5 pg (27.0-34.0) 05/04/18 04:45 MCHC 33.5 g/dL (33.0-35.0) 05/04/18 04:45 RDW 18.6 % (11.6-16.5) H 05/04/18 04:45 Plt Count 183 X10^3/uL (150.0-450.0) 05/04/18 04:45 MPV 8.2 fL (7.4-11.0) 05/04/18 04:45 Neut % (Auto) 85.7 % (42.0-75.0) H 05/04/18 04:45 Lymph % (Auto) 12.2 % (21.0-51.0) L 05/04/18 04:45 [place] % (Auto) 2.0 % (0.0-13.0) 05/04/18 04:45 Eos % (Auto) 0.0 % (0.9-2.9) L 05/04/18 04:45 Baso % (Auto) 0.1 % (0.2-1.0) L 05/04/18 04:45 Neut # (Auto) 5.5 x10^3/uL (2.2-4.8) H 05/04/18 04:45 Lymph # (Auto) 0.8 X10^3/uL (1.3-2.9) L 05/04/18 04:45 [place] # (Auto) 0.1 x10^3/uL (0.3-0.8) L 05/04/18 04:45 Eos # (Auto) 0.0 x10^3/uL (0.0-0.2) 05/04/18 04:45 Baso # (Auto) 0.0 X10^3/uL (0.0-0.1) 05/04/18 04:45 Absolute Nucleated RBC 0.1 /100WBC 05/04/18 04:45 INR Target Range - 05/02/18 22:55 INR 0.96 (0.8-1.3) 05/02/18 22:55 APTT 24.9 SECONDS (22.9-36.5) 05/02/18 22:55 PTT Comment - 05/02/18 22:55 D-Dimer 812 ng/mL (0-400) H* 05/02/18 22:55 Sample Site Lr 05/03/18 09:30 ABG pH 7.480 (7.35-7.45) H 05/03/18 09:30 ABG pCO2 54.0 mmHg (35.0-45.0) H* 05/03/18 09:30 ABG pO2 81.0 mmHg (80.0-100.0) 05/03/18 09:30 ABG HCO3 40.2 mmol/L (22-26) H* 05/03/18 09:30 ABG O2 Saturation 97.0 % (90-100) 05/03/18 09:30 ABG Base Excess 14.4 mmol/L (-2.0-2.0) H 05/03/18 09:30 Tanner Test Pos 05/03/18 09:30 A-a Gradient 1.0 mmHg 05/03/18 09:30 FiO2 21 05/03/18 09:30 Blood Gas Comments Pt madhu well elj 05/03/18 09:30 Sodium 137 mmol/L (136-145) 05/04/18 04:45 Corrected Sodium 140 mmol/L (136-145) 05/04/18 04:45 Potassium 4.1 mmol/L (3.5-5.1) 05/04/18 04:45 Chloride 97 mmol/L (98-107) L 05/04/18 04:45 Carbon Dioxide 33.9 mmol/L (21-32) H 05/04/18 04:45 BUN 13 mg/dL (7-18) 05/04/18 04:45 Creatinine 0.96 mg/dL (0.70-1.30) 05/04/18 04:45 Est GFR (MDRD) Af Amer > 60 (>60) 05/04/18 04:45 Est GFR (MDRD) Non-Af > 60 (>60) 05/04/18 04:45 Glucose 212 mg/dL (65-99) H 05/04/18 04:45 Calcium 9.4 mg/dL (8.5-10.1) 05/04/18 04:45 Corrected Calcium 10.1 mg/dL (8.5-10.1) 05/04/18 04:45 Magnesium 1.9 mg/dL (1.7-2.9) 05/03/18 08:08 Total Bilirubin 0.60 mg/dL (0.2-1.0) 05/04/18 04:45 AST 33 Units/L (15-37) 05/04/18 04:45 ALT 33 Units/L (12-78) 05/04/18 04:45 Alkaline Phosphatase 50 Units/L (46-116) 05/04/18 04:45 Creatine Kinase 34 Units/L (39-308) L 05/04/18 10:40 CK-MB (CK-2) < 1.0 ng/mL (0-4.0) 05/04/18 10:40 CK/CKMB % Calc 2.9 % (<4) 05/04/18 10:40 Troponin I < 0.02 ng/mL (0-1.5) 05/04/18 10:40 B-Natriuretic Peptide 41.7 pg/mL (0-79) 05/02/18 22:55 Total Protein 7.0 g/dL (6.4-8.2) 05/04/18 04:45 Albumin 3.1 g/dL (3.4-5.0) L 05/04/18 04:45 Globulin 3.9 g/dL (2.5-4.5) 05/04/18 04:45 Albumin/Globulin Ratio 0.8 Ratio (1.1-2.1) L 05/04/18 04:45 Diagnosis Discharge Problem: Elevated d-dimer, Acute hypokalemia Instructions Instructions: Shortness of Breath, Adult, Mipn-[id number] Nonspecific Chest Pain, Owtq-[id number] Forms: Patient Portal
--- NOTE | 2018-06-14 13:30 | DR.SOBA ---
HPI Time Seen Time Seen by Provider: 05/03/18 00:33 Primary Care Physician Primary Care Physician: dr camacho Complaints Chief Complaint:: sob heart hurting Source History Provided: Patient Mode of Arrival Mode of Arrival: Wheelchair Timing Onset of Chief Complaint: 04/29/18 PMH PMH Past Medical History: Arthritis, Diabetes, GERD, Gout and [place] Surgical History: Angioplasty/Stents, Cholecystectomy and Ortho Surgery Family History History of Family Medical Conditions: Yes Family Medical History: Diabetes Mellitus and Hypertension Social History Does patient currently use any type of tobacco product: No Have you used tobacco products in the last 12 months: No Type of Tobacco Use: Cigarettes How many years tobacco product used: 8 Does any household member use tobacco: No Alcohol Use: None Do you use any recreational Drugs:: No Lives With: Spouse Lives Where: Home infectious screening In the last 2 months have you had wt loss of >10#?: NO Have you had fever, night sweats or hemotysis?: No Have you traveled outside the country in the last 6 months?: No Isolation: Standard PE Vital Signs Vitals: Temperature 97.9 F Pulse Rate [Right Brachial] 88 Pulse Rate [Left Brachial] 96 Pulse Rate 98 Respiratory Rate 20 Blood Pressure [Left Arm] 116/78 Blood Pressure [Right Arm] 118/82 Blood Pressure 106/70 O2 Sat by Pulse Oximetry 94 ROR Labs Reviewed Result Diagrams: 05/04/18 04:45 05/04/18 04:45 Laboratory: 05/02/18 23:00 Blood Blood Culture - Final 05/02/18 22:55 Blood Blood Culture - Final WBC 6.5 X10^3/uL (3.6-10.0) 05/04/18 04:45 RBC 4.54 X10^6/uL (4.7-6.0) L 05/04/18 04:45 Hgb 12.5 g/dL (13.5-18.0) L 05/04/18 04:45 Hct 37.3 % (42.0-54.0) L 05/04/18 04:45 MCV 82.1 fL (80.0-100.0) 05/04/18 04:45 MCH 27.5 pg (27.0-34.0) 05/04/18 04:45 MCHC 33.5 g/dL (33.0-35.0) 05/04/18 04:45 RDW 18.6 % (11.6-16.5) H 05/04/18 04:45 Plt Count 183 X10^3/uL (150.0-450.0) 05/04/18 04:45 MPV 8.2 fL (7.4-11.0) 05/04/18 04:45 Neut % (Auto) 85.7 % (42.0-75.0) H 05/04/18 04:45 Lymph % (Auto) 12.2 % (21.0-51.0) L 05/04/18 04:45 [place] % (Auto) 2.0 % (0.0-13.0) 05/04/18 04:45 Eos % (Auto) 0.0 % (0.9-2.9) L 05/04/18 04:45 Baso % (Auto) 0.1 % (0.2-1.0) L 05/04/18 04:45 Neut # (Auto) 5.5 x10^3/uL (2.2-4.8) H 05/04/18 04:45 Lymph # (Auto) 0.8 X10^3/uL (1.3-2.9) L 05/04/18 04:45 [place] # (Auto) 0.1 x10^3/uL (0.3-0.8) L 05/04/18 04:45 Eos # (Auto) 0.0 x10^3/uL (0.0-0.2) 05/04/18 04:45 Baso # (Auto) 0.0 X10^3/uL (0.0-0.1) 05/04/18 04:45 Absolute Nucleated RBC 0.1 /100WBC 05/04/18 04:45 INR Target Range - 05/02/18 22:55 INR 0.96 (0.8-1.3) 05/02/18 22:55 APTT 24.9 SECONDS (22.9-36.5) 05/02/18 22:55 PTT Comment - 05/02/18 22:55 D-Dimer 812 ng/mL (0-400) H* 05/02/18 22:55 Sample Site Lr 05/03/18 09:30 ABG pH 7.480 (7.35-7.45) H 05/03/18 09:30 ABG pCO2 54.0 mmHg (35.0-45.0) H* 05/03/18 09:30 ABG pO2 81.0 mmHg (80.0-100.0) 05/03/18 09:30 ABG HCO3 40.2 mmol/L (22-26) H* 05/03/18 09:30 ABG O2 Saturation 97.0 % (90-100) 05/03/18 09:30 ABG Base Excess 14.4 mmol/L (-2.0-2.0) H 05/03/18 09:30 Tanner Test Pos 05/03/18 09:30 A-a Gradient 1.0 mmHg 05/03/18 09:30 FiO2 21 05/03/18 09:30 Blood Gas Comments Pt madhu well elj 05/03/18 09:30 Sodium 137 mmol/L (136-145) 05/04/18 04:45 Corrected Sodium 140 mmol/L (136-145) 05/04/18 04:45 Potassium 4.1 mmol/L (3.5-5.1) 05/04/18 04:45 Chloride 97 mmol/L (98-107) L 05/04/18 04:45 Carbon Dioxide 33.9 mmol/L (21-32) H 05/04/18 04:45 BUN 13 mg/dL (7-18) 05/04/18 04:45 Creatinine 0.96 mg/dL (0.70-1.30) 05/04/18 04:45 Est GFR (MDRD) Af Amer > 60 (>60) 05/04/18 04:45 Est GFR (MDRD) Non-Af > 60 (>60) 05/04/18 04:45 Glucose 212 mg/dL (65-99) H 05/04/18 04:45 Calcium 9.4 mg/dL (8.5-10.1) 05/04/18 04:45 Corrected Calcium 10.1 mg/dL (8.5-10.1) 05/04/18 04:45 Magnesium 1.9 mg/dL (1.7-2.9) 05/03/18 08:08 Total Bilirubin 0.60 mg/dL (0.2-1.0) 05/04/18 04:45 AST 33 Units/L (15-37) 05/04/18 04:45 ALT 33 Units/L (12-78) 05/04/18 04:45 Alkaline Phosphatase 50 Units/L (46-116) 05/04/18 04:45 Creatine Kinase 34 Units/L (39-308) L 05/04/18 10:40 CK-MB (CK-2) < 1.0 ng/mL (0-4.0) 05/04/18 10:40 CK/CKMB % Calc 2.9 % (<4) 05/04/18 10:40 Troponin I < 0.02 ng/mL (0-1.5) 05/04/18 10:40 B-Natriuretic Peptide 41.7 pg/mL (0-79) 05/02/18 22:55 Total Protein 7.0 g/dL (6.4-8.2) 05/04/18 04:45 Albumin 3.1 g/dL (3.4-5.0) L 05/04/18 04:45 Globulin 3.9 g/dL (2.5-4.5) 05/04/18 04:45 Albumin/Globulin Ratio 0.8 Ratio (1.1-2.1) L 05/04/18 04:45 Diagnosis Discharge Problem: Elevated d-dimer, Acute hypokalemia Instructions Instructions: Shortness of Breath, Adult, Yuqm-af-Ztec Nonspecific Chest Pain, Kwdz-aw-Izab Forms: Patient Portal
--- NOTE | 2018-06-16 09:27 | DR.SOBA ---
HPI Time Seen Time Seen by Provider: 05/03/18 00:33 Primary Care Physician Primary Care Physician: dr camacho Complaints Chief Complaint:: sob heart hurting Source History Provided: Patient Mode of Arrival Mode of Arrival: Wheelchair Timing Onset of Chief Complaint: 04/29/18 PMH PMH Past Medical History: Arthritis, Diabetes, GERD, Gout and [place] Surgical History: Angioplasty/Stents, Cholecystectomy and Ortho Surgery Family History History of Family Medical Conditions: Yes Family Medical History: Diabetes Mellitus and Hypertension Social History Does patient currently use any type of tobacco product: No Have you used tobacco products in the last 12 months: No Type of Tobacco Use: Cigarettes How many years tobacco product used: 8 Does any household member use tobacco: No Alcohol Use: None Do you use any recreational Drugs:: No Lives With: Spouse Lives Where: Home infectious screening In the last 2 months have you had wt loss of >10#?: NO Have you had fever, night sweats or hemotysis?: No Have you traveled outside the country in the last 6 months?: No Isolation: Standard [place] Vital Signs Vitals: Temperature 97.9 F Pulse Rate [Right Brachial] 88 Pulse Rate [Left Brachial] 96 Pulse Rate 98 Respiratory Rate 20 Blood Pressure [Left Arm] 116/78 Blood Pressure [Right Arm] 118/82 Blood Pressure 106/70 O2 Sat by Pulse Oximetry 94 General Limitations: No Limitations General Appearance: Alert and In No Apparent Distress Head Head Exam: Normal Inspection, Atraumatic and Normocephalic Eyes Eye exam: Normal Appearance, PERRL and EOMI ENT ENT Exam: Normal Exam and Normal Oropharynx Neck Neck Exam: Normal Inspection and Full ROM Chest Chest Inspection: Normal Inspection and Symmetric Chest Wall Rise Respiratory Respiratory Exam: Normal Lung Sounds Bilat and Accessory Muscle Use Respiratory Exam: Bilateral: Clear to Auscultation Cardiovascular Cardiovascular Exam: Regular Rate and Normal Rhythm Abdominal Exam Abdominal Exam: Normal Inspection, Normal Bowel Sounds and Soft Abdominal Tenderness: RUQ Extremities Extremities Exam: Normal Inspection and Full ROM Back Back Exam: Normal Inspection and Full ROM Neurologic Neurological Exam: Alert, Oriented X3 and CN II-XII Intact Psychiatric Psychiatric Exam: Normal Affect and Normal Mood Skin Skin Exam: Warm, Dry and Intact ROR Labs Reviewed Laboratory Results Reviewed?: Yes Result Diagrams: 05/04/18 04:45 05/04/18 04:45 Laboratory: 05/02/18 23:00 Blood Blood Culture - Final 05/02/18 22:55 Blood Blood Culture - Final WBC 6.5 X10^3/uL (3.6-10.0) 05/04/18 04:45 RBC 4.54 X10^6/uL (4.7-6.0) L 05/04/18 04:45 Hgb 12.5 g/dL (13.5-18.0) L 05/04/18 04:45 Hct 37.3 % (42.0-54.0) L 05/04/18 04:45 MCV 82.1 fL (80.0-100.0) 05/04/18 04:45 MCH 27.5 pg (27.0-34.0) 05/04/18 04:45 MCHC 33.5 g/dL (33.0-35.0) 05/04/18 04:45 RDW 18.6 % (11.6-16.5) H 05/04/18 04:45 Plt Count 183 X10^3/uL (150.0-450.0) 05/04/18 04:45 MPV 8.2 fL (7.4-11.0) 05/04/18 04:45 Neut % (Auto) 85.7 % (42.0-75.0) H 05/04/18 04:45 Lymph % (Auto) 12.2 % (21.0-51.0) L 05/04/18 04:45 [place] % (Auto) 2.0 % (0.0-13.0) 05/04/18 04:45 Eos % (Auto) 0.0 % (0.9-2.9) L 05/04/18 04:45 Baso % (Auto) 0.1 % (0.2-1.0) L 05/04/18 04:45 Neut # (Auto) 5.5 x10^3/uL (2.2-4.8) H 05/04/18 04:45 Lymph # (Auto) 0.8 X10^3/uL (1.3-2.9) L 05/04/18 04:45 [place] # (Auto) 0.1 x10^3/uL (0.3-0.8) L 05/04/18 04:45 Eos # (Auto) 0.0 x10^3/uL (0.0-0.2) 05/04/18 04:45 Baso # (Auto) 0.0 X10^3/uL (0.0-0.1) 05/04/18 04:45 Absolute Nucleated RBC 0.1 /100WBC 05/04/18 04:45 INR Target Range - 05/02/18 22:55 INR 0.96 (0.8-1.3) 05/02/18 22:55 APTT 24.9 SECONDS (22.9-36.5) 05/02/18 22:55 PTT Comment - 05/02/18 22:55 D-Dimer 812 ng/mL (0-400) H* 05/02/18 22:55 Sample Site Lr 05/03/18 09:30 ABG pH 7.480 (7.35-7.45) H 05/03/18 09:30 ABG pCO2 54.0 mmHg (35.0-45.0) H* 05/03/18 09:30 ABG pO2 81.0 mmHg (80.0-100.0) 05/03/18 09:30 ABG HCO3 40.2 mmol/L (22-26) H* 05/03/18 09:30 ABG O2 Saturation 97.0 % (90-100) 05/03/18 09:30 ABG Base Excess 14.4 mmol/L (-2.0-2.0) H 05/03/18 09:30 Tanner Test Pos 05/03/18 09:30 A-a Gradient 1.0 mmHg 05/03/18 09:30 FiO2 21 05/03/18 09:30 Blood Gas Comments Pt madhu well elj 05/03/18 09:30 Sodium 137 mmol/L (136-145) 05/04/18 04:45 Corrected Sodium 140 mmol/L (136-145) 05/04/18 04:45 Potassium 4.1 mmol/L (3.5-5.1) 05/04/18 04:45 Chloride 97 mmol/L (98-107) L 05/04/18 04:45 Carbon Dioxide 33.9 mmol/L (21-32) H 05/04/18 04:45 BUN 13 mg/dL (7-18) 05/04/18 04:45 Creatinine 0.96 mg/dL (0.70-1.30) 05/04/18 04:45 Est GFR (MDRD) Af Amer > 60 (>60) 05/04/18 04:45 Est GFR (MDRD) Non-Af > 60 (>60) 05/04/18 04:45 Glucose 212 mg/dL (65-99) H 05/04/18 04:45 Calcium 9.4 mg/dL (8.5-10.1) 05/04/18 04:45 Corrected Calcium 10.1 mg/dL (8.5-10.1) 05/04/18 04:45 Magnesium 1.9 mg/dL (1.7-2.9) 05/03/18 08:08 Total Bilirubin 0.60 mg/dL (0.2-1.0) 05/04/18 04:45 AST 33 Units/L (15-37) 05/04/18 04:45 ALT 33 Units/L (12-78) 05/04/18 04:45 Alkaline Phosphatase 50 Units/L (46-116) 05/04/18 04:45 Creatine Kinase 34 Units/L (39-308) L 05/04/18 10:40 CK-MB (CK-2) < 1.0 ng/mL (0-4.0) 05/04/18 10:40 CK/CKMB % Calc 2.9 % (<4) 05/04/18 10:40 Troponin I < 0.02 ng/mL (0-1.5) 05/04/18 10:40 B-Natriuretic Peptide 41.7 pg/mL (0-79) 05/02/18 22:55 Total Protein 7.0 g/dL (6.4-8.2) 05/04/18 04:45 Albumin 3.1 g/dL (3.4-5.0) L 05/04/18 04:45 Globulin 3.9 g/dL (2.5-4.5) 05/04/18 04:45 Albumin/Globulin Ratio 0.8 Ratio (1.1-2.1) L 05/04/18 04:45 XRAY XRAY Findings: CxR: no cardiopulmonary abnormality. Elevated D Dimer; admited for V/Q sca Diagnosis Discharge Problem: Elevated d-dimer, Acute hypokalemia Instructions Instructions: Shortness of Breath, Adult, [id number] Nonspecific Chest Pain, [id number] Forms: Patient Portal
--- NOTE | 2018-06-17 00:51 | DR.SOBA ---
HPI Time Seen Time Seen by Provider: 05/03/18 00:33 Primary Care Physician Primary Care Physician: dr camacho Complaints Chief Complaint:: sob heart hurting Source History Provided: Patient Mode of Arrival Mode of Arrival: Wheelchair Timing Onset of Chief Complaint: 04/29/18 PMH PMH Past Medical History: Arthritis, Diabetes, GERD, Gout and [place] Surgical History: Angioplasty/Stents, Cholecystectomy and Ortho Surgery Family History History of Family Medical Conditions: Yes Family Medical History: Diabetes Mellitus and Hypertension Social History Does patient currently use any type of tobacco product: No Have you used tobacco products in the last 12 months: No Type of Tobacco Use: Cigarettes How many years tobacco product used: 8 Does any household member use tobacco: No Alcohol Use: None Do you use any recreational Drugs:: No Lives With: Spouse Lives Where: Home infectious screening In the last 2 months have you had wt loss of >10#?: NO Have you had fever, night sweats or hemotysis?: No Have you traveled outside the country in the last 6 months?: No Isolation: Standard PE Vital Signs Vitals: Temperature 97.9 F Pulse Rate [Right Brachial] 88 Pulse Rate [Left Brachial] 96 Pulse Rate 98 Respiratory Rate 20 Blood Pressure [Left Arm] 116/78 Blood Pressure [Right Arm] 118/82 Blood Pressure 106/70 O2 Sat by Pulse Oximetry 94 ROR Labs Reviewed Result Diagrams: 05/04/18 04:45 05/04/18 04:45 Laboratory: 05/02/18 23:00 Blood Blood Culture - Final 05/02/18 22:55 Blood Blood Culture - Final WBC 6.5 X10^3/uL (3.6-10.0) 05/04/18 04:45 RBC 4.54 X10^6/uL (4.7-6.0) L 05/04/18 04:45 Hgb 12.5 g/dL (13.5-18.0) L 05/04/18 04:45 Hct 37.3 % (42.0-54.0) L 05/04/18 04:45 MCV 82.1 fL (80.0-100.0) 05/04/18 04:45 MCH 27.5 pg (27.0-34.0) 05/04/18 04:45 MCHC 33.5 g/dL (33.0-35.0) 05/04/18 04:45 RDW 18.6 % (11.6-16.5) H 05/04/18 04:45 Plt Count 183 X10^3/uL (150.0-450.0) 05/04/18 04:45 MPV 8.2 fL (7.4-11.0) 05/04/18 04:45 Neut % (Auto) 85.7 % (42.0-75.0) H 05/04/18 04:45 Lymph % (Auto) 12.2 % (21.0-51.0) L 05/04/18 04:45 [place] % (Auto) 2.0 % (0.0-13.0) 05/04/18 04:45 Eos % (Auto) 0.0 % (0.9-2.9) L 05/04/18 04:45 Baso % (Auto) 0.1 % (0.2-1.0) L 05/04/18 04:45 Neut # (Auto) 5.5 x10^3/uL (2.2-4.8) H 05/04/18 04:45 Lymph # (Auto) 0.8 X10^3/uL (1.3-2.9) L 05/04/18 04:45 [place] # (Auto) 0.1 x10^3/uL (0.3-0.8) L 05/04/18 04:45 Eos # (Auto) 0.0 x10^3/uL (0.0-0.2) 05/04/18 04:45 Baso # (Auto) 0.0 X10^3/uL (0.0-0.1) 05/04/18 04:45 Absolute Nucleated RBC 0.1 /100WBC 05/04/18 04:45 INR Target Range - 05/02/18 22:55 INR 0.96 (0.8-1.3) 05/02/18 22:55 APTT 24.9 SECONDS (22.9-36.5) 05/02/18 22:55 PTT Comment - 05/02/18 22:55 D-Dimer 812 ng/mL (0-400) H* 05/02/18 22:55 Sample Site Lr 05/03/18 09:30 ABG pH 7.480 (7.35-7.45) H 05/03/18 09:30 ABG pCO2 54.0 mmHg (35.0-45.0) H* 05/03/18 09:30 ABG pO2 81.0 mmHg (80.0-100.0) 05/03/18 09:30 ABG HCO3 40.2 mmol/L (22-26) H* 05/03/18 09:30 ABG O2 Saturation 97.0 % (90-100) 05/03/18 09:30 ABG Base Excess 14.4 mmol/L (-2.0-2.0) H 05/03/18 09:30 Tanner Test Pos 05/03/18 09:30 A-a Gradient 1.0 mmHg 05/03/18 09:30 FiO2 21 05/03/18 09:30 Blood Gas Comments Pt madhu well elj 05/03/18 09:30 Sodium 137 mmol/L (136-145) 05/04/18 04:45 Corrected Sodium 140 mmol/L (136-145) 05/04/18 04:45 Potassium 4.1 mmol/L (3.5-5.1) 05/04/18 04:45 Chloride 97 mmol/L (98-107) L 05/04/18 04:45 Carbon Dioxide 33.9 mmol/L (21-32) H 05/04/18 04:45 BUN 13 mg/dL (7-18) 05/04/18 04:45 Creatinine 0.96 mg/dL (0.70-1.30) 05/04/18 04:45 Est GFR (MDRD) Af Amer > 60 (>60) 05/04/18 04:45 Est GFR (MDRD) Non-Af > 60 (>60) 05/04/18 04:45 Glucose 212 mg/dL (65-99) H 05/04/18 04:45 Calcium 9.4 mg/dL (8.5-10.1) 05/04/18 04:45 Corrected Calcium 10.1 mg/dL (8.5-10.1) 05/04/18 04:45 Magnesium 1.9 mg/dL (1.7-2.9) 05/03/18 08:08 Total Bilirubin 0.60 mg/dL (0.2-1.0) 05/04/18 04:45 AST 33 Units/L (15-37) 05/04/18 04:45 ALT 33 Units/L (12-78) 05/04/18 04:45 Alkaline Phosphatase 50 Units/L (46-116) 05/04/18 04:45 Creatine Kinase 34 Units/L (39-308) L 05/04/18 10:40 CK-MB (CK-2) < 1.0 ng/mL (0-4.0) 05/04/18 10:40 CK/CKMB % Calc 2.9 % (<4) 05/04/18 10:40 Troponin I < 0.02 ng/mL (0-1.5) 05/04/18 10:40 B-Natriuretic Peptide 41.7 pg/mL (0-79) 05/02/18 22:55 Total Protein 7.0 g/dL (6.4-8.2) 05/04/18 04:45 Albumin 3.1 g/dL (3.4-5.0) L 05/04/18 04:45 Globulin 3.9 g/dL (2.5-4.5) 05/04/18 04:45 Albumin/Globulin Ratio 0.8 Ratio (1.1-2.1) L 05/04/18 04:45 Diagnosis Discharge Problem: Elevated d-dimer, Acute hypokalemia Instructions Instructions: Shortness of Breath, Adult, [id number] Nonspecific Chest Pain, [id number] Forms: Patient Portal
== END 2018-05-04 13:45 | disposition home or self-care (01) ==
LOC: ER 21:18 → MED/SURG 21:18
PROVIDERS: ADMIT Obstetrics & Gynecology Obstetrics; ATTEND Internal Medicine
DX: I10 Essential (primary) hypertension; R07.89 Other chest pain; I25.10 Atherosclerotic heart disease of native coronary artery without angina pectoris; M13.89 Other specified arthritis, multiple sites; Z79.01 Long term (current) use of anticoagulants; J44.9 Chronic obstructive pulmonary disease, unspecified; R06.02 Shortness of breath; K21.9 Gastro-esophageal reflux disease without esophagitis; R94.31 Abnormal electrocardiogram [ECG] [EKG]; D64.89 Other specified anemias; E87.6 Hypokalemia; G70.00 Myasthenia gravis without (acute) exacerbation
CPT/HCPCS: 29105; 36415; 36600; 71010; 71045; 78582; 80053; 82550; 82553; 82803; 83735; 83880; 84132; 84484; 85025; 85378; 85610; 85730; 87040; 93005; 93010; 94760; 96365; 99283; 99284; A4222; G0378; J7512; J7613; J8499

== ENCOUNTER 2019-02-12 12:51 | Observation (INO) ==
[2019-02-12 13:06] VITALS: BP 113/70; BMI 33.5
[2019-02-12 16:43] LABS: BASOPHILS # (AUTO) 0.1 X10^3/uL (0.0-0.1); BASOPHILS % (AUTO) 0.6 % (0.2-1.0); EOSINOPHILS % (AUTO) 0.5 % (0.9-2.9); HEMATOCRIT 37.3 % (42.0-54.0); HEMOGLOBIN 12.3 g/dL (13.5-18.0); LYMPHOCYTES # (AUTO) 0.8 X10^3/uL (1.3-2.9); LYMPHOCYTES % (AUTO) 9.7 % (21.0-51.0); MEAN CORPUSCULAR HEMOGLOBIN 29.3 pg (27.0-34.0); MEAN CORPUSCULAR HGB CONC 32.9 g/dL (33.0-35.0); MEAN CORPUSCULAR VOLUME 88.8 fL (80.0-100.0); MEAN PLATELET VOLUME 7.5 fL (7.4-11.0); MONOCYTES # (AUTO) 0.5 x10^3/uL (0.3-0.8); MONOCYTES % (AUTO) 5.8 % (0.0-13.0); NEUTROPHILS % (AUTO) 83.4 % (42.0-75.0); PLATELET COUNT 232 X10^3/uL (150.0-450.0); RED BLOOD COUNT 4.19 X10^6/uL (4.7-6.0); RED CELL DISTRIBUTION WIDTH 15.3 % (11.6-16.5); WHITE BLOOD COUNT 8.4 X10^3/uL (3.6-10.0)
--- NOTE | 2019-02-12 16:46 | DR.GENAD ---
HPI Time Seen Time Seen by Provider: 02/12/19 16:10 PCP Primary Care Physician: DR ABBASI HPI Comment HPI Comment: Patient has been treated for a cellulitis of the left upper extremity for the past week. Spouse reports that a small knot up in the area of the cellulitis. He denies dyspnea. Complaint/Symptoms Chief Complaint Doctors Comments: Cellulitis Chief Complaint:: PT C/O 1 WEEK HISTORY OF LEFT ARM PAIN AROUND THE AC AREA AND ELBOW. PT DOES HAVE SMALL KNOT THAT HAS COME UP IN THE AC AREA SINCE YESTERDAY. PAIN IS INTERMITTENT AND IS WORSENED WITH MOVEMENT. Self Treatment fo Chief Complaint: TYLENOL 4 GIVEN AT 11AM PT WAS SEEN BY PCP AND RECIEVED ROCEPHIN 1 GM IM ON 02/08/19 AND TAKING BACTRIM Source History Provided: Patient Mode of Arrival Mode of Arrival: Ambulatory Timing Onset of Chief Complaint: 02/12/19 PMH PMH Past Medical History: Yes Past Medical History: Arthritis, COPD, Coronary Artery Disease, Dyslipidemia, GERD, Hypertension, Kidney Stones, [place] and Sleep Apnea Past Medical History Comment: MYASTHENIA GRAVIS Past Surgical History: Yes Surgical History: Cholecystectomy and Ortho Surgery Family History History of Family Medical Conditions: No Family Medical History: Diabetes Mellitus and Hypertension Social History Does patient currently use any type of tobacco product: No Have you used tobacco products in the last 12 months: No Type of Tobacco Use: None Does any household member use tobacco: No Alcohol Use: None Do you use any recreational Drugs:: No Lives With: Family infectious screening In the last 2 months have you had wt loss of >10#?: NO Have you had fever, night sweats or hemotysis?: No Have you traveled outside the country in the last 6 months?: No Isolation: Standard ROS Review of Systems Constitutional: No Symptoms Reported Eyes: No Symptoms Reported ENTM: No Symptoms Reported Respiratoy: No Symptoms Reported Cardiovascular: No Symptoms Reported Gastrointestinal/Abdominal: No Symptoms Reported Genitourinary: No Symptoms Reported Neurological: No Symptoms Reported Musculoskeletal: No Symptoms Reported Integumentary: See HPI Endocrine: No Symptoms Reported All Other Systems: Reviewed and Negative PE Vital Signs Vitals: Temperature 98.1 F Pulse Rate 101 Respiratory Rate 22 Blood Pressure [Left Arm] 131/72 Blood Pressure [Right Arm] 119/74 Blood Pressure 113/70 O2 Sat by Pulse Oximetry 100 General Limitations: No Limitations General Appearance: Alert and In No Apparent Distress Head Head Exam: Normal Inspection, Atraumatic and Normocephalic Eyes Eye exam: Normal Appearance, PERRL and EOMI ENT ENT Exam: Normal Exam, Normal Oropharynx and Normal External Ear Exam External Ear Exam: Normal External Inspection TM/Canal Exam: Bilateral: Normal Nose Exam: Normal Nose Exam Mouth Exam: Normal Inspection Neck Neck Exam: Normal Inspection and Full ROM Chest Chest Inspection: Normal Inspection and Symmetric Chest Wall Rise Respiratory Respiratory Exam: Normal Lung Sounds Bilat Respiratory Exam: Bilateral: Clear to Auscultation Cardiovascular Cardiovascular Exam: Regular Rate and Normal Rhythm Abdominal Exam Abdominal Exam: Normal Inspection, Normal Bowel Sounds and Soft Abdominal Tenderness: RUQ Extremities Extremities Exam: Normal Inspection and Full ROM Back Back Exam: Normal Inspection and Full ROM Neurologic Neurological Exam: Alert, Oriented X3 and CN II-XII Intact Psychiatric Psychiatric Exam: Normal Affect and Normal Mood Skin Skin Exam: Warm, Dry, Intact and Rash (left forearm with macular hyperpigmentation dorsum of left forearm;) ROR Labs Reviewed Laboratory Results Reviewed?: Yes Result Diagrams: 02/12/19 16:34 02/12/19 16:34 Laboratory: WBC 8.4 X10^3/uL (3.6-10.0) 02/12/19 16:34 RBC 4.19 X10^6/uL (4.7-6.0) L 02/12/19 16:34 Hgb 12.3 g/dL (13.5-18.0) L 02/12/19 16:34 Hct 37.3 % (42.0-54.0) L 02/12/19 16:34 MCV 88.8 fL (80.0-100.0) 02/12/19 16:34 MCH 29.3 pg (27.0-34.0) 02/12/19 16:34 MCHC 32.9 g/dL (33.0-35.0) L 02/12/19 16:34 RDW 15.3 % (11.6-16.5) 02/12/19 16:34 Plt Count 232 X10^3/uL (150.0-450.0) 02/12/19 16:34 MPV 7.5 fL (7.4-11.0) 02/12/19 16:34 Neut % (Auto) 83.4 % (42.0-75.0) H 02/12/19 16:34 Lymph % (Auto) 9.7 % (21.0-51.0) L 02/12/19 16:34 [place] % (Auto) 5.8 % (0.0-13.0) 02/12/19 16:34 Eos % (Auto) 0.5 % (0.9-2.9) L 02/12/19 16:34 Baso % (Auto) 0.6 % (0.2-1.0) 02/12/19 16:34 Neut # (Auto) 7.0 x10^3/uL (2.2-4.8) H 02/12/19 16:34 Lymph # (Auto) 0.8 X10^3/uL (1.3-2.9) L 02/12/19 16:34 [place] # (Auto) 0.5 x10^3/uL (0.3-0.8) 02/12/19 16:34 Eos # (Auto) 0.0 x10^3/uL (0.0-0.2) 02/12/19 16:34 Baso # (Auto) 0.1 X10^3/uL (0.0-0.1) 02/12/19 16:34 Absolute Nucleated RBC 0.0 /100WBC 02/12/19 16:34 D-Dimer 515 ng/mL (0-400) H* 02/12/19 16:34 Sodium 138 mmol/L (136-145) 02/12/19 16:34 Corrected Sodium 140 mmol/L (136-145) 02/12/19 16:34 Potassium 4.2 mmol/L (3.5-5.1) 02/12/19 16:34 Chloride 103 mmol/L (98-107) 02/12/19 16:34 Carbon Dioxide 28.0 mmol/L (21-32) 02/12/19 16:34 BUN 11 mg/dL (7-18) 02/12/19 16:34 Creatinine 1.08 mg/dL (0.70-1.30) 02/12/19 16:34 Est GFR (MDRD) Af Amer > 60 (>60) 02/12/19 16:34 Est GFR (MDRD) Non-Af > 60 (>60) 02/12/19 16:34 Glucose 176 mg/dL (65-99) H 02/12/19 16:34 Calcium 8.6 mg/dL (8.5-10.1) 02/12/19 16:34 Corrected Calcium TNP 02/12/19 16:34 Total Bilirubin 0.40 mg/dL (0.2-1.0) 02/12/19 16:34 AST 23 Units/L (15-37) 02/12/19 16:34 ALT 22 Units/L (12-78) 02/12/19 16:34 Alkaline Phosphatase 47 Units/L (46-116) 02/12/19 16:34 C-Reactive Protein 3.80 mg/L (0-3.0) H 02/12/19 16:34 Total Protein 6.8 g/dL (6.4-8.2) 02/12/19 16:34 Albumin 3.5 g/dL (3.4-5.0) 02/12/19 16:34 Globulin 3.3 g/dL (2.5-4.5) 02/12/19 16:34 Albumin/Globulin Ratio 1.1 Ratio (1.1-2.1) 02/12/19 16:34 Other Results Comments: D Dimer elevated; will do CTA r/o PE Opioid Opioid Risk Tool Total: 0 Total Score Risk Category: Low Risk Copyright: Tone TONY predicting aberrant behaviors Diagnosis Discharge Problem: Cellulitis of forearm Instructions Forms: Excuse From Work
[2019-02-12 16:52] LABS: ALANINE AMINOTRANSFERASE 22 Units/L (12-78); ALBUMIN 3.5 g/dL (3.4-5.0); ALKALINE PHOSPHATASE 47 Units/L (46-116); ASPARTATE AMINO TRANSFERASE 23 Units/L (15-37); BLOOD UREA NITROGEN 11 mg/dL (7-18); CALCIUM 8.6 mg/dL (8.5-10.1); CHLORIDE 103 mmol/L (98-107); COR NA(FOR HYPERGLY) 140 mmol/L (136-145); CREATININE 1.08 mg/dL (0.70-1.30); SODIUM 138 mmol/L (136-145); TOTAL PROTEIN 6.8 g/dL (6.4-8.2); eGFR NON BLACK RACES > 60 (>60)
[2019-02-12] MEDS ORDERED: XANAX ONE (21:30)
[2019-02-12] MEDS ORDERED: TYLENOL #3 TAB (W/CODEINE) PO ONE (21:30)
[2019-02-12] MEDS ORDERED: ZANTAC ONE (21:30)
[2019-02-12] MEDS ORDERED: BACTRIM DS TAB PO ONE (21:30)
[2019-02-13] MEDS ORDERED: ULTRAM PO ONE (03:42)
[2019-02-13] MEDS ORDERED: GLUCOTROL XL PO ONE (09:00)
[2019-02-13] MEDS ORDERED: MICRO K EXTEN CAP 10 MEQ PO ONE (09:00)
[2019-02-13] MEDS ORDERED: BACTRIM DS TAB PO ONE (09:00)
[2019-02-13] MEDS ORDERED: FLOMAX PO ONE (09:00)
[2019-02-13] MEDS ORDERED: PLAVIX PO ONE (09:00)
[2019-02-13] MEDS ORDERED: PULMICORT NEB TX 0.5 MG NEB ONE (09:00)
[2019-02-13] MEDS ORDERED: SYNTHROID 25 mcg TAB PO ONE (09:00)
[2019-02-13] MEDS ORDERED: NORVASC TAB 5 MG PO ONE (09:00)
[2019-02-13] MEDS ORDERED: COREG TAB 12.5 MG PO ONE (09:00)
[2019-02-13] MEDS ORDERED: CYMBALTA PO ONE (09:00)
[2019-02-13] MEDS ORDERED: ZYLOPRIM PO ONE (09:00)
[2019-02-13] MEDS ORDERED: DUONEB 0.5 MG/3 MG NEB ONE ×2 (09:00→13:13)
[2019-02-13] MEDS ORDERED: NEURONTIN CAP 400 MG PO ONE ×2 (09:00→13:13)
[2019-02-13] MEDS ORDERED: TYLENOL #3 TAB (W/CODEINE) PO ONE (13:13)
[2019-02-20 10:27] LABS: BLOOD UREA NITROGEN 9 mg/dL (7-18); CARBON DIOXIDE 26.5 mmol/L (21-32); CHLORIDE 105 mmol/L (98-107); CREATININE 0.94 mg/dL (0.70-1.30); SODIUM 142 mmol/L (136-145); eGFR NON BLACK RACES > 60 (>60)
[2019-02-20 10:28] LABS: ALANINE AMINOTRANSFERASE 22 Units/L (12-78); ALKALINE PHOSPHATASE 51 Units/L (46-116); ASPARTATE AMINO TRANSFERASE 32 Units/L (15-37); CALCIUM 7.9 mg/dL (8.5-10.1); COR NA(FOR HYPERGLY) 143 mmol/L (136-145)
[2019-02-20 10:29] LABS: ALBUMIN 3.2 g/dL (3.4-5.0); COR CA(FOR HYPOALB) 8.5 mg/dL (8.5-10.1); MAGNESIUM 1.9 mg/dL (1.7-2.9); TOTAL PROTEIN 6.3 g/dL (6.4-8.2)
[2019-02-20 10:30] LABS: BASOPHILS % (AUTO) 0.7 % (0.2-1.0); EOSINOPHILS % (AUTO) 2.6 % (0.9-2.9); HEMATOCRIT 35.6 % (42.0-54.0); HEMOGLOBIN 12.2 g/dL (13.5-18.0); LYMPHOCYTES # (AUTO) 1.6 X10^3/uL (1.3-2.9); LYMPHOCYTES % (AUTO) 20.4 % (21.0-51.0); MEAN CORPUSCULAR HEMOGLOBIN 30.7 pg (27.0-34.0); MEAN CORPUSCULAR HGB CONC 34.2 g/dL (33.0-35.0); MEAN CORPUSCULAR VOLUME 89.7 fL (80.0-100.0); MEAN PLATELET VOLUME 7.9 fL (7.4-11.0); MONOCYTES % (AUTO) 9.2 % (0.0-13.0); NEUTROPHILS # (AUTO) 5.2 x10^3/uL (2.2-4.8); NEUTROPHILS % (AUTO) 67.1 % (42.0-75.0); PLATELET COUNT 236 X10^3/uL (150.0-450.0); RED BLOOD COUNT 3.97 X10^6/uL (4.7-6.0); RED CELL DISTRIBUTION WIDTH 15.3 % (11.6-16.5); WHITE BLOOD COUNT 7.8 X10^3/uL (3.6-10.0)
[2019-02-20 10:31] LABS: BASOPHILS # (AUTO) 0.1 X10^3/uL (0.0-0.1); EOSINOPHILS # (AUTO) 0.2 x10^3/uL (0.0-0.2); MONOCYTES # (AUTO) 0.7 x10^3/uL (0.3-0.8)
== END 2019-02-13 16:35 | disposition home or self-care (01) ==
LOC: ER 12:55 → OBS 12:55 → ER 19:41
PROVIDERS: ADMIT Obstetrics & Gynecology Obstetrics; ATTEND Obstetrics & Gynecology Obstetrics
DX: L03.114 Cellulitis of left upper limb; R79.1 Abnormal coagulation profile; I10 Essential (primary) hypertension; E03.8 Other specified hypothyroidism; E78.2 Mixed hyperlipidemia; M25.522 Pain in left elbow; I25.10 Atherosclerotic heart disease of native coronary artery without angina pectoris; J44.9 Chronic obstructive pulmonary disease, unspecified; K21.9 Gastro-esophageal reflux disease without esophagitis; M79.89 Other specified soft tissue disorders; E11.65 Type 2 diabetes mellitus with hyperglycemia; N40.0 Benign prostatic hyperplasia without lower urinary tract symptoms; R79.82 Elevated C-reactive protein (CRP); R06.02 Shortness of breath; Z95.5 Presence of coronary angioplasty implant and graft; G70.00 Myasthenia gravis without (acute) exacerbation
CPT/HCPCS: 36415; 71010; 71045; 78582; 80053; 83735; 85025; 85378; 86140; 93971; 94640; 96365; 99218; 99284; A4222; A9540; A9567; G0378; J7620; J7626

== ENCOUNTER 2024-01-26 13:41 | Observation (INO) ==
--- NOTE | 2024-01-26 13:53 | EKG ---
Test Reason : hypotension Blood Pressure : */* mmHG Vent. Rate : 100 BPM Atrial Rate : 100 BPM P-R Int : 138 ms QRS Dur : 72 ms QT Int : 354 ms P-R-T Axes : -26 -13 19 degrees QTc Int : 456 ms Normal sinus rhythm When compared with ECG of 16-JAN-2024 07:08, T wave inversion now evident in Inferior leads Nonspecific T wave abnormality, improved in Lateral leads Confirmed by Ton Lance MD ([id number]) on 01/27/2024 5:50:41 AM Referred By: Confirmed By: Ton Lance MD
--- NOTE | 2024-01-26 14:18 | DR.ABDMALE ---
HPI Time seen Time Seen by Provider: 01/26/24 13:54 PCP Primary Care Physician: Delia Cross Complaint Chief Complaint Doctors Comments: 73-year-old male brought in via EMS for evaluation patient with a recent complicated history. Was here on 01/15 followi ng a fall, found to have low hemoglobin with hemoglobin 5.3. Patient was transferred to another facility, received 3 units of packed red blood cells. Reportedly had an EGD, which showed some old ulcer, but no active bleeding. Recent CT showed changes consistent with diverticulosis, possible diver ticulitis. Patient developed blood in the stool today again. Is very weak in general. Having some vague abdominal discomfort. Denies head injury, neck or back pain. No reported fever, chills, upper respiratory symptoms. Denies urinary issues. No nausea, vomiting. Patient with a history of myasthenia gravis, just received 2 days of IgG antibody therapy, due for his final third dose today. Chief Complaint:: Hypotension, rectal bleeding, onset this am with hx of recent rectal bleeding and low hgb in [place]. EMS reports family reports it started this AM after passing a large clot Reviewed Nurses Notes Review: Yes Source History provided by:: patient Mode of arrival Mode of Arrival: EMS Timing Onset of Chief Complaint: 01/26/24 PMH PMH Past Medical History: Yes Past Medical History: Anemia, Arthritis, COPD, Coronary Artery Disease, Diabetes, Dyslipidemia, GERD, Hypertension, Kidney Stones, [place] and Sleep Apnea Past Surgical History: Yes Surgical History: Cholecystectomy, Ortho Surgery and Other Family History History of Family Medical Conditions: Yes Family Medical History: Diabetes Mellitus and Hypertension Social History Does patient currently use any type of tobacco product: No Have you used tobacco products in the last 12 months: No Type of Tobacco Use: None Does any household member use tobacco: No Alcohol Use: None Do you use any recreational Drugs:: No Lives With: Spouse Lives Where: Home Infectious screening In the last 2 months have you had wt loss of >10#?: NO Have you had fever, night sweats or hemotysis?: No Have you traveled outside the country in the last 6 months?: No Isolation: Standard ROS Review of Systems Constitutional: Weakness Eyes: No Symptoms Reported ENTM: No Symptoms Reported Respiratoy: No Symptoms Reported Cardiovascular: No Symptoms Reported Gastrointestinal/Abdominal: See HPI Genitourinary: No Symptoms Reported Neurological: Weakness Musculoskeletal: No Symptoms Reported Integumentary: No Symptoms Reported Hematologic/Lymphatic: No Symptoms Reported All Other Systems: Reviewed and Negative PE Vital Signs Vital Signs: Temp Pulse Resp BP BP Pulse Ox O2 Del Method 01/26/24 17:00 114 H 24 98 01/26/24 17:00 89/52 01/26/24 16:45 102/56 01/26/24 16:45 118 H 22 100 01/26/24 16:30 102/59 01/26/24 16:30 105 H 23 97 01/26/24 16:17 98/53 01/26/24 16:17 112 H 22 99 01/26/24 16:15 118 H 21 99 01/26/24 16:00 114 H 21 99 01/26/24 16:00 101/51 01/26/24 15:48 109/58 01/26/24 15:48 112 H 18 99 01/26/24 15:46 70/49 01/26/24 15:46 119 H 15 99 01/26/24 15:45 117 H 24 100 01/26/24 15:32 119 H 27 H 100 01/26/24 15:32 98/55 01/26/24 15:30 117 H 26 H 99 01/26/24 15:15 124 H 22 95 01/26/24 15:15 104/61 01/26/24 15:00 106 H 26 H 97 01/26/24 15:00 95/52 01/26/24 14:45 106 H 23 96 01/26/24 14:45 103/56 01/26/24 14:30 105 H 27 H 91 L 01/26/24 14:30 111/59 01/26/24 14:15 96 H 24 99 01/26/24 14:15 103/59 01/26/24 14:07 117/59 01/26/24 14:07 98 H 21 98 01/26/24 14:00 96 H 100 01/26/24 14:00 103/57 01/26/24 13:59 97 H 97 01/26/24 13:42 98.3 F 101 H 16 90/56 99 Room Air 01/25/24 13:55 111/67 General General Appearance: Alert and In No Apparent Distress Head Head Exam: Normal Inspection, Atraumatic and Normocephalic Eyes Eye exam: PERRL and EOMI ENT ENT Exam: Mucous Membranes Moist Neck Neck Exam: Normal Inspection; negative Tenderness Respiratory Respiratory Exam: Normal Lung Sounds Bilat; negative Accessory Muscle Use or Respiratory Distress Cardiovascular Cardiovascular Exam: Regular Rate, Normal Rhythm and Normal Heart Sounds Abdominal Exam Abdominal Exam: Normal Bowel Sounds, Soft and Tenderness (In all quadrants, no guarding or rebound) Extremeties Extremities Exam: Normal Inspection and Full ROM; negative Edema Neurologic Neurological Exam: Alert, Oriented X3 and CN II-XII Intact; negative Motor Sensory Deficit Skin Skin Exam: Warm and Dry COURSE Treatment Treatment: 73-year-old male with recent severe anemia, received blood transfusion and upper GI, EGD. Now with generalized weakness, fatigue. Hemoglobin low again at 5.3. Will transfuse 2 units of packed red blood cells and admit him for this. Will send stool for occult blood. 1710 - .Patient had a bloody bowel movement here. Per nurse, patient becoming agitated, him and his spouse just had a disagreement and she left patient states he might sign out a gainst medical vice patient is on chronic alprazolam despite his myasthenia gravis. Will give 1 mg of lorazepam IV now help calm him down. Patient transported to floor to receive his blood ROR Labs Reviewed Laboratory Results Reviewed?: Yes 01/26/24 14:06 01/26/24 14:06 Laboratory: WBC 3.9 X10^3/uL (3.6-10.0) 01/26/24 14:06 RBC 1.85 X10^6/uL (4.7-6.0) L 01/26/24 14:06 Hgb 5.4 g/dL (13.5-18.0) L* 01/26/24 14:06 Hct 16.6 % (42.0-54.0) L* 01/26/24 14:06 MCV 89.8 fL (80.0-100.0) 01/26/24 14:06 MCH 29.0 pg (27.0-34.0) 01/26/24 14:06 MCHC 32.3 g/dL (33.0-35.0) L 01/26/24 14:06 RDW 16.2 % (11.6-16.5) 01/26/24 14:06 Plt Count 188 X10^3/uL (150.0-450.0) 01/26/24 14:06 MPV 7.7 fL (7.4-11.0) 01/26/24 14:06 Neut % (Auto) 48.8 % (42.0-75.0) 01/26/24 14:06 Lymph % (Auto) 33.0 % (21.0-51.0) 01/26/24 14:06 [place] % (Auto) 15.4 % (0.0-13.0) H 01/26/24 14:06 Eos % (Auto) 0.9 % (0.9-2.9) 01/26/24 14:06 Baso % (Auto) 1.9 % (0.2-1.0) H 01/26/24 14:06 Neut # (Auto) 1.9 x10^3/uL (2.2-4.8) L 01/26/24 14:06 Lymph # (Auto) 1.3 X10^3/uL (1.3-2.9) 01/26/24 14:06 [place] # (Auto) 0.6 x10^3/uL (0.3-0.8) 01/26/24 14:06 Eos # (Auto) 0.0 x10^3/uL (0.0-0.2) 01/26/24 14:06 Baso # (Auto) 0.1 X10^3/uL (0.0-0.1) 01/26/24 14:06 Absolute Nucleated RBC 0.1 /100WBC 01/26/24 14:06 Sodium 146 mmol/L (136-145) H 01/26/24 14:06 Corrected Sodium TNP 01/26/24 14:06 Potassium 4.8 mmol/L (3.5-5.1) 01/26/24 14:06 Chloride 114 mmol/L (98-107) H 01/26/24 14:06 Carbon Dioxide 31.7 mmol/L (21-32) 01/26/24 14:06 BUN 42 mg/dL (7-18) H 01/26/24 14:06 Creatinine 0.78 mg/dL (0.70-1.30) 01/26/24 14:06 Est GFR (MDRD) Af Amer > 60 (>60) 01/26/24 14:06 Est GFR (MDRD) Non-Af > 60 (>60) 01/26/24 14:06 Glucose 87 mg/dL (65-99) 01/26/24 14:06 Calcium 7.4 mg/dL (8.5-10.1) L 01/26/24 14:06 Corrected Calcium 9.2 mg/dL (8.5-10.1) 01/26/24 14:06 Total Bilirubin 0.50 mg/dL (0.2-1.0) 01/26/24 14:06 AST 26 Units/L (15-37) 01/26/24 14:06 ALT 8 Units/L (12-78) L 01/26/24 14:06 Alkaline Phosphatase 28 Units/L (46-116) L 01/26/24 14:06 Troponin I High Sens 21.1 ng/L (4.0-60.0) 01/26/24 14:06 Total Protein 4.7 g/dL (6.4-8.2) L 01/26/24 14:06 Albumin 1.7 g/dL (3.4-5.0) L 01/26/24 14:06 Globulin 3.0 g/dL (2.5-4.5) 01/26/24 14:06 Albumin/Globulin Ratio 0.6 Ratio (1.1-2.1) L 01/26/24 14:06 Lipase 23 Units/L (16-77) 01/26/24 14:06 Specimen Type Clean catch urine 01/26/24 15:19 Urine Color Yellow (YELLOW) 01/26/24 15:19 Urine Appearance Clear (CLEAR) 01/26/24 15:19 Urine pH 5.0 (5.0 - 8.0) 01/26/24 15:19 Ur Specific [place] 1.020 (1.000-1.030) 01/26/24 15:19 Urine Protein 1+ (NEGATIVE) 01/26/24 15:19 Urine Glucose (UA) Negative (NEGATIVE) 01/26/24 15:19 Urine Ketones Negative (NEGATIVE) 01/26/24 15:19 Urine Blood 5+ (NEGATIVE) 01/26/24 15:19 Urine Nitrite Negative (NEGATIVE) 01/26/24 15:19 Urine Bilirubin Negative (NEGATIVE) 01/26/24 15:19 Urine Urobilinogen Normal (NORMAL) 01/26/24 15:19 Ur Leukocyte Esterase Negative (NEGATIVE) 01/26/24 15:19 Urine RBC Tntc /HPF (0-3) A 01/26/24 15:19 Urine WBC None seen /HPF (0-5) 01/26/24 15:19 Ur Squamous Epith Cells Few /HPF (NEGATIVE) 01/26/24 15:19 Urine Bacteria Trace /HPF (NEGATIVE) 01/26/24 15:19 Urine Mucus Few /HPF (NEGATIVE) 01/26/24 15:19 Ur Culture Indicated? No/not indicated 01/26/24 15:19 Blood Type O POSITIVE 01/26/24 14:06 Antibody Screen Negative 01/26/24 14:06 Crossmatch See Detail 01/26/24 14:06 EKG Rate: 98 [place]: Normal Rhythm: NSR ST: Normal Opioid Opioid Risk Tool Age (Freddy box if 16-45): No History of Preadolescent Sexual Abuse: No Total: 0 Total Score Risk Category: Low Risk Copyright: Tone TONY predicting aberrant behaviors Discharge Plan Diagnosis Discharge Problem: Severe anemia Discharge Plan Patient Disposition: ADMITTED INPATIENT Condition: Stable Orders to Discharge Patient Discharge Orders: Transfer (Routine); Ordered 01/26/24 Ordered By: Meet Ospina
[2024-01-26 14:19] LABS: BASOPHILS # (AUTO) 0.1 X10^3/uL (0.0-0.1); BASOPHILS % (AUTO) 1.9 % (0.2-1.0); EOSINOPHILS % (AUTO) 0.9 % (0.9-2.9); LYMPHOCYTES # (AUTO) 1.3 X10^3/uL (1.3-2.9); MEAN CORPUSCULAR HGB CONC 32.3 g/dL (33.0-35.0); MEAN CORPUSCULAR VOLUME 89.8 fL (80.0-100.0); MEAN PLATELET VOLUME 7.7 fL (7.4-11.0); MONOCYTES # (AUTO) 0.6 x10^3/uL (0.3-0.8); MONOCYTES % (AUTO) 15.4 % (0.0-13.0); NEUTROPHILS # (AUTO) 1.9 x10^3/uL (2.2-4.8); NEUTROPHILS % (AUTO) 48.8 % (42.0-75.0); PLATELET COUNT 188 X10^3/uL (150.0-450.0); RED BLOOD COUNT 1.85 X10^6/uL (4.7-6.0); RED CELL DISTRIBUTION WIDTH 16.2 % (11.6-16.5); WHITE BLOOD COUNT 3.9 X10^3/uL (3.6-10.0)
[2024-01-26 14:21] LABS: HEMATOCRIT 16.6 % (42.0-54.0); HEMOGLOBIN 5.4 g/dL (13.5-18.0)
[2024-01-26] MEDS: IMMUNE GLOBULIN IV ONE (14:21)
[2024-01-26 14:35] LABS: ALANINE AMINOTRANSFERASE 8 Units/L (12-78); ALBUMIN 1.7 g/dL (3.4-5.0); ALKALINE PHOSPHATASE 28 Units/L (46-116); ASPARTATE AMINO TRANSFERASE 26 Units/L (15-37); BLOOD UREA NITROGEN 42 mg/dL (7-18); CALCIUM 7.4 mg/dL (8.5-10.1); CARBON DIOXIDE 31.7 mmol/L (21-32); CHLORIDE 114 mmol/L (98-107); COR CA(FOR HYPOALB) 9.2 mg/dL (8.5-10.1); CREATININE 0.78 mg/dL (0.70-1.30); GLUCOSE 87 mg/dL (65-99); LIPASE 23 Units/L (16-77); POTASSIUM 4.8 mmol/L (3.5-5.1); SODIUM 146 mmol/L (136-145); TOTAL PROTEIN 4.7 g/dL (6.4-8.2); eGFR NON BLACK RACES > 60 (>60)
[2024-01-26 15:39] LABS: BILIRUBIN,URINE NEGATIVE (NEGATIVE); BLOOD/HEMOGLOBIN,URINE 5+ (NEGATIVE); GLUCOSE, URINE NEGATIVE (NEGATIVE); KETONES,URINE NEGATIVE (NEGATIVE); LEUKOCYTE ESTERASE ,URINE NEGATIVE (NEGATIVE); NITRITES,URINE NEGATIVE (NEGATIVE); PROTEIN,URINE 1+ (NEGATIVE); UROBILINOGEN,URINE NORMAL (NORMAL)
[2024-01-26 15:41] LABS: APPEARANCE,URINE CLEAR (CLEAR); COLOR,URINE YELLOW (YELLOW)
[2024-01-26 15:49] LABS: BACTERIA,URINE TRACE /HPF (NEGATIVE); RBC,URINE TNTC /HPF (0-3); SQUAMOUS EPITHELIAL CELL,UR FEW /HPF (NEGATIVE)
--- NOTE | 2024-01-26 16:47 | RAD ---
EXAM:CHEST, 1 VIEWHISTORY:HYPOTENSION;COMPARISON:None. TECHNIQUE:Chest x-ray single view performedFINDINGS:The lungs hypoinflated but otherwise clear. The heart size is magnified by technique. A stent is demonstrated within a coronary artery along the left heart border. No mediastinal widening is observed. Skin folds overlie the left and right chest wall. Degenerative changes of the bilateral shoulders including the glenohumeral and AC joints and there are features of chronic rotator cuff tears. Otherwise no acute osseous abnormalities of the chest.IMPRESSION:Low lung volumes with no organized infiltrates or edema. Additional chronic findings are detailed above.THIS IS AN ELECTRONICALLY VERIFIED FINAL REPORT01/26/2024 4:44 PM - Electronically signed by Felton Ghosh MD
[2024-01-26] MEDS: ATIVAN INJ 2 MG VIAL IVP ONE (17:30)
[2024-01-26] MEDS: NS 500 ML IV 500 ML IV ONE (17:51)
[2024-01-26] MEDS: ATIVAN INJ 2 MG VIAL ONE (17:51)
[2024-01-26] MEDS: TYLENOL 500 MG TAB EXTRA STRENGTH PO PRN (18:00)
[2024-01-26] MEDS: BENADRYL CAP/TAB 25 MG PO PRN (18:00)
[2024-01-26] MEDS ORDERED: LASIX IVP PRN (18:03)
[2024-01-26 18:09] VITALS: BMI 23.2
[2024-01-26] MEDS ORDERED: CONSULT PHARMACY - POTASSIUM & MAGNESIUM XX SCH (18:27)
[2024-01-26] MEDS ORDERED: PATIENT'S HOME MEDICATION (Alprazolam 0.5 mg tablet) PO PRN (18:27)
[2024-01-26] MEDS ORDERED: ALPRAZOLAM ODT PO PRN (18:31)
[2024-01-26] MEDS: NS 250 ML IV 250 ML IV ONE (20:46)
[2024-01-26] MEDS: LASIX IVP ONE (21:36)
[2024-01-26] MEDS: FLOMAX PO SCH (21:42)
[2024-01-26] MEDS: NEURONTIN CAP 400 MG PO SCH (21:42)
[2024-01-26] MEDS: PATIENT'S HOME MEDICATION (Duloxetine 20 mg capsule,delayed release(DR/EC)) PO SCH (21:54)
[2024-01-26] MEDS: MAG-OX TAB PO SCH (21:56)
[2024-01-26] MEDS ORDERED: PATIENT'S HOME MEDICATION (Gabapentin 800 mg tablet) PO SCH (22:00)
[2024-01-26] MEDS: NS 1,000 ML IV 1,000 ML IV SCH (22:52)
[2024-01-27 03:23] LABS: BASOPHILS # (AUTO) 0.1 X10^3/uL (0.0-0.1); EOSINOPHILS # (AUTO) 0.1 x10^3/uL (0.0-0.2); NEUTROPHILS # (AUTO) 3.6 x10^3/uL (2.2-4.8); RED BLOOD COUNT 2.12 X10^6/uL (4.7-6.0)
[2024-01-27 03:27] LABS: EOSINOPHILS % (AUTO) 1.5 % (0.9-2.9); LYMPHOCYTES # (AUTO) 1.8 X10^3/uL (1.3-2.9); LYMPHOCYTES % (AUTO) 27.4 % (21.0-51.0); MEAN CORPUSCULAR HEMOGLOBIN 29.5 pg (27.0-34.0); MEAN CORPUSCULAR HGB CONC 32.9 g/dL (33.0-35.0); MEAN CORPUSCULAR VOLUME 89.7 fL (80.0-100.0); MEAN PLATELET VOLUME 8.2 fL (7.4-11.0); MONOCYTES # (AUTO) 0.9 x10^3/uL (0.3-0.8); MONOCYTES % (AUTO) 13.6 % (0.0-13.0); NEUTROPHILS % (AUTO) 56.5 % (42.0-75.0); PLATELET COUNT 167 X10^3/uL (150.0-450.0); RED CELL DISTRIBUTION WIDTH 15.5 % (11.6-16.5); WHITE BLOOD COUNT 6.4 X10^3/uL (3.6-10.0)
[2024-01-27 03:29] LABS: HEMOGLOBIN 6.2 g/dL (13.5-18.0)
[2024-01-27 03:40] LABS: ALANINE AMINOTRANSFERASE 7 Units/L (12-78); ALBUMIN 1.4 g/dL (3.4-5.0); ALKALINE PHOSPHATASE 20 Units/L (46-116); ASPARTATE AMINO TRANSFERASE 23 Units/L (15-37); BLOOD UREA NITROGEN 59 mg/dL (7-18); CALCIUM 7.1 mg/dL (8.5-10.1); CARBON DIOXIDE 28.5 mmol/L (21-32); CHLORIDE 113 mmol/L (98-107); COR CA(FOR HYPOALB) 9.2 mg/dL (8.5-10.1); CREATININE 0.91 mg/dL (0.70-1.30); GLUCOSE 84 mg/dL (65-99); MAGNESIUM 1.6 mg/dL (2.0-2.9); POTASSIUM 4.2 mmol/L (3.5-5.1); SODIUM 148 mmol/L (136-145); TOTAL PROTEIN 4.5 g/dL (6.4-8.2); eGFR NON BLACK RACES > 60 (>60)
[2024-01-27] MEDS ORDERED: NS 250 ML IV 250 ML IV ONE ×2 (03:46→10:32)
[2024-01-27] MEDS: NS 250 ML IV 25 ML IV PRN (04:15)
[2024-01-27] MEDS: NS 100 ML IV 0 ML ONE (04:59)
[2024-01-27] MEDS ORDERED: ZOFRAN INJ 4 MG VIAL IVP PRN (05:46)
[2024-01-27] MEDS ORDERED: ZOFRAN INJ 4 MG VIAL ONE (05:48)
[2024-01-27] MEDS: ZOFRAN INJ 4 MG VIAL IVP ONE (06:11)
[2024-01-27] MEDS ORDERED: CONSULT PHARMACY - POTASSIUM & MAGNESIUM XX SCH (07:00)
[2024-01-27 07:35] VITALS: TEMP 98
[2024-01-27 07:39] LABS: HEMATOCRIT 20.5 % (42.0-54.0)
[2024-01-27 07:42] LABS: HEMOGLOBIN 6.8 g/dL (13.5-18.0)
[2024-01-27] MEDS: ATIVAN INJ 2 MG VIAL IVP ONE (08:31)
[2024-01-27] MEDS ORDERED: PROTONIX TAB 40 MG PO SCH (09:00)
[2024-01-27] MEDS: VASOSTRICT INJ 20 UNITS VIAL 40 UNITS in NS 100 ML IV 100 ML IV PRN (09:16)
[2024-01-27] MEDS: BENADRYL INJ 50 MG VIAL IVP ONE (09:16)
[2024-01-27 09:26] LABS: INR 1.46 (0.8-1.3)
[2024-01-27] MEDS: MAGNESIUM SULFATE 1 GRAM/100 mL PREMIX 1 G/100 ML BAG IV SCH (10:07)
[2024-01-27] MEDS: NS 250 ML IV 500 ML IV ONE (10:07)
[2024-01-27] MEDS: PROTONIX INJ 40 MG VIAL 80 MG in NS 100 ML IV 80 ML IV SCH (10:07)
--- NOTE | 2024-01-27 10:18 | CT ---
EXAM:CTA, ABDOMEN/PELVIS W&WOHISTORY:ANEMIA, GI BLEED;COMPARISON:January 15TECHNIQUE:CTA of the abdomen and pelvis without with contrast. Axial sequences are reconstructed with multi planer reformats. Volume rendered MIP and/or 3D reconstructions are also provided.FINDINGS:Noncontrast phase: Multivessel coronary atherosclerosis. Generalized athero sclerotic disease of the abdominal aorta iliac tributaries. Mesh retainer clips along the anterior left abdominal wall suggest prior hernia repair. No evidence of free fluid. Bladder is partially decompressed by Roberts catheter. There is a small amount of gas within the urinary bladder which may be iatrogenic in the setting of Roberts catheter placement. There is accentuated circumferential wall thickness of the urinary bladder which may be magnified by incomplete luminal distention.Nonobstructing calculus of the lower pole of the left kidney measures 12 mm.The gallbladder is surgically absent.Fluid-filled bowel segments are demonstrated. There is localized thickening of the sigmoid segment with pericolonic inflammatory stranding and centered in this region of interest is evidence of diverticular disease. No extraluminal gas or organized pericolonic free fluid is identifiedHypostatic atelectatic lung changes are observed. Otherwise the lung bases are clear.CTA abdomen: No acute abnormalities of the liver. The gallbladder is surgically absent. The spleen enhances appropriately. No acute abnormalities of the pancreas, adrenal glands, or bilateral kidneys. Specifically, no hydronephrosis of the right or left kidney both kidneys enhance in a timely fashion. The stone of the left kidney is nonobstructing. A normal appendix is confirmed. There is no acute contrast extravasation within the lumen of the bowel. Air-fluid levels of the colon suggests diarrhea associated condition.Normal caliber abdominal aorta with generalized atherosclerosis resulting in mild stenosis. Mild plaque/stenosis of the proximal and mid SMA. Celiac artery splenic and common hepatic artery segments are patent. Mild plaque at the origins of the bilateral renal arteries. Inferior mesenteric artery is patent. Atherosclerosis is contiguous with the bilateral iliofemoral tributaries. Ylmn-po-[id number] stenosis of the left internal iliac artery secondary to noncalcified plaque. No flow-limiting stenosis of the external iliac branches, proximal common femoral arteries or superficial femoral arteries. No dissection is identified. Severely diminished bone mineral density with multilevel compression fractures associated with thoracic and lumbar spine. Notably there is severe height loss at L1 and L2 and moderate height loss at L3 and L4. The compression fracture at L2 may be in the subacute phase is there is residual sclerosis within the vertebral body. There is also subcortical endplate sclerosis along the endplate at L4 which may indicate a physiologic response of healing. Degenerative changes of the lumbar spine contribute to multilevel spinal stenosis and neural foraminal compromise.There are also multiple healing left thoracic ribcage fractures.A delayed phase is also performed. There is no accumulation of contrast within the bowel on the delayed phase. Both kidneys excrete contrast in a timely fashion.No enlarged abdominal or pelvic lymph nodes. The prostate gland is mildly enlarged overall.IMPRESSION:Imaging findings compatible with a segmental colitis associated with diverticulitis of the sigmoid colon. This may potentially serve as a source of GI bleed. No acute radiological complications are observed. Associated fluid-filled colonic segments with air-fluid levels indicate associated diarrhea related state. Consider follow-up colonoscopy to ensure resolution of wall thickening and inflammatory change after initial conservative treatment measures.No other localizing source of active bleeding or acute GI bleed identified.Nonobstructing left renal calculusPartially decompressed urinary bladder with accentuated wall thickness in the setting of incomplete luminal distention and intraluminal gas which may be iatrogenic in etiology. Routine correlation with urinalysis suggested for exclusion of coexisting cystitisMild generalized athero sclerotic disease of the abdominal aorta mesenteric and iliofemoral tributaries. No aneurysm occluded segments or flow-limiting high-grade stenosis identified.Multiple compression fractures of the thoracolumbar spine and healing left-sided rib fractures associated with diminished bone mineral density. See above for complete detailsTHIS IS AN ELECTRONICALLY VERIFIED FINAL REPORT01/27/2024 10:15 AM - Electronically signed by Felton Ghosh MD
[2024-01-27] MEDS: BENADRYL INJ 50 MG VIAL ONE (10:31)
--- NOTE | 2024-01-27 11:32 | DR.UPDATE ---
H&P Update Prescription drug monitoring program results: PDMP was not reviewed H&P Reviewed: Yes Any changes to H&P?: No Patient was examined?: Yes Vital Signs: Temp Pulse Resp BP BP Pulse Ox O2 Del Method 01/27/24 10:45 115 H 21 95 01/27/24 10:30 153/83 01/27/24 10:30 112 H 37 H 100 01/27/24 10:15 109/72 01/27/24 10:15 115 H 21 100 01/27/24 10:00 109/72 01/27/24 10:00 110 H 20 100 01/27/24 09:56 104/62 01/27/24 09:56 110 H 100 01/27/24 09:45 109 H 100 01/27/24 09:44 104/60 01/27/24 09:44 109 H 100 01/27/24 09:43 109 H 100 01/27/24 08:45 124 H 23 100 01/27/24 08:43 125 H 21 100 01/27/24 08:43 80/49 01/27/24 08:32 74/45 01/27/24 08:32 130 H 24 100 01/27/24 08:30 68/49 01/27/24 08:30 124 H 23 100 01/27/24 08:15 123 H 23 100 01/27/24 08:00 93/50 01/27/24 08:00 132 H 100 01/27/24 07:48 88/55 01/27/24 07:48 132 H 100 01/27/24 07:45 131 H 100 01/27/24 07:35 138 H 100 01/27/24 07:35 81/53 01/27/24 07:35 81/53 01/27/24 07:00 Nasal Cannula 01/27/24 08:20 Nasal Cannula 01/27/24 07:30 98.0 F 141 H 100 01/27/24 07:15 140 H 18 100 01/27/24 07:04 137 H 100 01/27/24 07:04 122/54 01/27/24 07:00 141 H 100 01/27/24 07:00 81/51 01/27/24 06:45 137 H 100 01/27/24 06:31 120 H 24 100 01/27/24 06:31 83/54 01/27/24 06:30 120 H 23 100 01/27/24 06:15 134 H 18 100 01/27/24 06:06 125/55 01/27/24 06:06 133 H 15 100 01/27/24 06:02 132 H 100 01/27/24 05:45 133 H 24 100 01/27/24 05:30 127 H 25 H 100 01/27/24 05:30 87/50 01/27/24 05:20 82/52 01/27/24 05:20 125 H 25 H 100 01/27/24 05:15 125 H 22 100 01/27/24 05:00 119 H 19 97 01/27/24 04:51 81/55 01/27/24 04:51 121 H 22 100 01/27/24 04:48 129 H 100 01/27/24 04:47 68/45 01/27/24 04:44 143 H 22 01/27/24 04:33 128 H 20 100 01/27/24 04:33 140/59 01/27/24 04:31 131 H 22 01/27/24 04:20 133 H 20 96 01/27/24 04:20 82/51 01/27/24 04:15 131 H 21 98 01/27/24 04:00 127 H 20 100 01/27/24 04:00 88/51 01/27/24 03:58 130 H 23 100 01/27/24 03:58 89/50 01/27/24 03:45 140 H 27 H 96 01/27/24 03:33 124 H 24 90 L 01/27/24 03:33 84/52 01/27/24 03:31 126 H 24 100 01/27/24 03:31 76/53 01/27/24 03:30 128 H 26 H 94 L 01/27/24 03:15 117 H 26 H 98 01/27/24 03:12 117 H 25 H 98 01/27/24 03:12 94/51 01/27/24 03:01 79/52 01/27/24 03:01 125 H 21 91 L 01/27/24 03:00 125 H 20 95 01/27/24 02:48 127 H 27 H 100 01/27/24 02:48 81/52 01/27/24 06:00 137 H 18 125/55 100 Nasal Cannula 01/27/24 05:00 120 H 20 81/55 100 Nasal Cannula 01/27/24 04:00 97.8 F 130 H 26 H 89/50 100 Nasal Cannula 01/27/24 03:00 115 H 25 H 79/52 100 Nasal Cannula 01/27/24 02:00 130 H 32 H 95/50 100 Nasal Cannula 01/26/24 22:00 Nasal Cannula 01/27/24 01:00 119 H 30 H 91/54 100 Nasal Cannula 01/27/24 00:00 98.5 F 120 H 26 H 93/50 100 Nasal Cannula 01/26/24 23:00 144 H 20 91/50 100 Nasal Cannula 01/26/24 22:00 145 H 21 71/50 97 Nasal Cannula 01/26/24 21:00 143 H 17 92/61 97 Nasal Cannula 01/26/24 20:00 98.3 F 117 H 20 80/53 97 Nasal Cannula 01/26/24 19:00 18 01/26/24 19:00 98.1 F 114 H 18 91/58 99 Nasal Cannula 01/26/24 19:00 Nasal Cannula 01/26/24 18:00 18 01/26/24 17:40 97.3 F L 01/26/24 17:40 Room Air 01/26/24 18:18 Nasal Cannula 01/26/24 18:00 112 H 26 H 71 L 01/26/24 17:50 118 H 01/26/24 17:50 92/53 01/26/24 17:30 96/52 01/26/24 17:30 120 H 9 L 100 01/26/24 17:15 126 H 26 H 87 L 01/26/24 17:00 114 H 24 98 01/26/24 17:00 89/52 01/26/24 16:45 102/56 01/26/24 16:45 118 H 22 100 01/26/24 16:30 102/59 01/26/24 16:30 105 H 23 97 01/26/24 16:17 98/53 01/26/24 16:17 112 H 22 99 01/26/24 16:15 118 H 21 99 01/26/24 16:00 114 H 21 99 01/26/24 16:00 101/51 01/26/24 17:43 20 01/26/24 15:48 109/58 01/26/24 15:48 112 H 18 99 01/26/24 15:46 70/49 01/26/24 15:46 119 H 15 99 01/26/24 15:45 117 H 24 100 01/26/24 15:32 119 H 27 H 100 01/26/24 15:32 98/55 01/26/24 15:30 117 H 26 H 99 01/26/24 15:15 124 H 22 95 01/26/24 15:15 104/61 01/26/24 15:00 106 H 26 H 97 01/26/24 15:00 95/52 01/26/24 14:45 106 H 23 96 01/26/24 14:45 103/56 01/26/24 14:30 105 H 27 H 91 L 01/26/24 14:30 111/59 01/26/24 14:15 96 H 24 99 01/26/24 14:15 103/59 01/26/24 14:07 117/59 01/26/24 14:07 98 H 21 98 01/26/24 14:00 96 H 100 01/26/24 14:00 103/57 01/26/24 13:59 97 H 97 01/26/24 13:42 98.3 F 101 H 16 90/56 99 Room Air 01/25/24 13:55 111/67 O2 Flow Rate FiO2 01/27/24 10:45 01/27/24 10:30 01/27/24 10:30 01/27/24 10:15 01/27/24 10:15 01/27/24 10:00 01/27/24 10:00 01/27/24 09:56 01/27/24 09:56 01/27/24 09:45 01/27/24 09:44 01/27/24 09:44 01/27/24 09:43 01/27/24 08:45 01/27/24 08:43 01/27/24 08:43 01/27/24 08:32 01/27/24 08:32 01/27/24 08:30 01/27/24 08:30 01/27/24 08:15 01/27/24 08:00 01/27/24 08:00 01/27/24 07:48 01/27/24 07:48 01/27/24 07:45 01/27/24 07:35 01/27/24 07:35 01/27/24 07:35 01/27/24 07:00 01/27/24 08:20 09 2201/27/24 07:30 01/27/24 07:15 01/27/24 07:04 01/27/24 07:04 01/27/24 07:00 01/27/24 07:00 01/27/24 06:45 01/27/24 06:01/27/24 06:31 01/27/24 06:30 01/27/24 06:15 01/27/24 06:06 01/27/24 06:06 01/27/24 06:02 01/27/24 05:45 01/27/24 05:30 01/27/24 05:30 01/27/24 05:20 01/27/24 05:20 01/27/24 05:15 01/27/24 05:00 01/27/24 04:51 01/27/24 04:51 01/27/24 04:48 01/27/24 04:47 01/27/24 04:44 01/27/24 04:33 01/27/24 04:33 01/27/24 04:01/27/24 04:20 01/27/24 04:20 01/27/24 04:15 01/27/24 04:00 01/27/24 04:00 01/27/24 03:58 01/27/24 03:58 01/27/24 03:45 01/27/24 03:33 01/27/24 03:33 01/27/24 03:31 01/27/24 03:01/27/24 03:30 01/27/24 03:15 01/27/24 03:12 01/27/24 03:12 01/27/24 03:01 01/27/24 03:01 01/27/24 03:00 01/27/24 02:48 01/27/24 02:48 01/27/24 06:00 01/27/24 05:00 01/27/24 04:00 01/27/24 03:00 01/27/24 02:00 01/26/24 22:00 09 2201/27/24 01:00 2 01/27/24 00:00 2 01/26/24 23:00 2 01/26/24 22:00 2 01/26/24 21:00 2 01/26/24 20:00 2 01/26/24 19:00 01/26/24 19:00 2 01/26/24 19:00 2 01/26/24 18:00 01/26/24 17:40 01/26/24 17:40 01/26/24 18:18 2 28 01/26/24 18:00 01/26/24 17:50 01/26/24 17:50 01/26/24 17:30 01/26/24 17:30 01/26/24 17:15 01/26/24 17:00 01/26/24 17:00 01/26/24 16:45 01/26/24 16:45 01/26/24 16:30 01/26/24 16:30 01/26/24 16:17 01/26/24 16:17 01/26/24 16:15 01/26/24 16:00 01/26/24 16:00 01/26/24 17:43 01/26/24 15:48 01/26/24 15:48 01/26/24 15:46 01/26/24 15:46 01/26/24 15:45 01/26/24 15:32 01/26/24 15:32 01/26/24 15:30 01/26/24 15:15 01/26/24 15:15 01/26/24 15:00 01/26/24 15:00 01/26/24 14:45 01/26/24 14:45 01/26/24 14:30 01/26/24 14:30 01/26/24 14:15 01/26/24 14:15 01/26/24 14:07 01/26/24 14:07 01/26/24 14:00 01/26/24 14:00 01/26/24 13:59 01/26/24 13:42 01/25/24 13:55 Procedures (ALL) - Central Line Placement PCM.CLCO: written consent Time out performed: Yes Patient placed pm monitor/pulse ox: Yes MD prep: mask, gown, gloves, other Centrial line prep: chlorhexidine scrub, sterile drapes applied Local anesthsia used: lidocane 1% Ultrasound used for placement: Yes (right basilic v id'd via u/s and cannulation vis) Central line lumen ininserted: double Post procedure: good blood return, all ports aspirated, flushed,capped, sterile dressing applied Post procedure xray: tip oc catheter in good position (appears SVC, report pending) Patient tolerated procedure: Yes Complications: none
[2024-01-27 12:04] VITALS: BP 104/56; PULSE 112; RESP 39; O2SAT 100
--- NOTE | 2024-01-27 12:37 | DR.H&P ---
H&P History & Physical for Day of: H&P Date: 01/26/24 Chief Complaint Chief Complaint: Anemia History of Present Illness History of Present Illness: Patient seen in ICU with nurse and at bedside. He was seen January 25 at approximately 1800. He was brought to the ER by spouse due to a bloody bowel movement. It was dark, tarry, and runny. He had had similar 2 weeks ago when he was found to be anemic at 5.3 and shipped to [place]. His hemoglobin was found to be 5.4 today. 3 units have been ordered for transfusion. He is also on IV fluids at this time. Recent history: Patient admitted to 2 facilities 3 different times over the last 2 months. 1 was for an occipital stroke, the other 2 were for GI bleeds. He h ad a colonoscopy at [facility] that showed a 5 to 9 mm ulceration in the proximal ascending colon with no intervention. Week and a half ago when he was sent to [place], they did an EGD and colonoscopy that showed the ulcer in the colon but also showed a duodenal ulcer. Once again no interventions for either. Treatments are complicated by myasthenia gravis for which she has been on steroids for the last 6 years (started at 60 mg daily and now weaned down to 10 mg daily), coronary artery disease, and recent stroke. His Plavix was stopped after the first bleed with aspirin continued. Aspirin was stopped after the most recent bleed. Family currently agreeable to ICU admission for blood transfusion and close monitoring of vitals. If transfer has to be made he was diagnosed with myasthenia gravis at [place] versus a good relationship with [facility]. They would prefer not to go to back to [place]. Past medical history significant for myasthenia gravis, anemia due to chronic blood loss, coronary artery disease, prednisone induced type 2 diabetes mellitus, and occipital CVA. Past surgical history is significant for joint replacement, lumbar surgery, hernia repair, and cholecystectomy. Social history: He is . He is retired. No ethanol or illicit drug intake. He is a former smoker. Family history: Mother at age 57 of coronary disease. Father at age 67 of likely aspiration pneumonia. Review of systems obtained from spouse. Significant for melena, weakness, pallor, and altered mental status. Past Medical History Past Medical History: Anemia, Arthritis, COPD, Coronary Artery Disease, Risa betes, Dyslipidemia, GERD, Hypertension, Kidney Stones, CA and Sleep Apnea Additional Medical History: HX GASTIRIC ULCER, GI BLEED IN JUL 2017, MG Past Surgical History Surgical History: Cholecystectomy, Ortho Surgery and Other Family History Family Medical History: Diabetes Mellitus and Hypertension Social History Does patient currently use any type of tobacco product: No Have you used tobacco products in the last 12 months: No Type of Tobacco Use: None Does any household member use tobacco: No Alcohol Use: None Drug Use: None Medications Home Medications: Home Medications Medication Instructions Recorded Confirmed Type alendronate 70 mg tablet 70 mg PO WEEKLY 05/01/22 01/26/24 History alprazolam 0.5 mg tablet 0.5 mg PO TID PRN 05/01/22 01/26/24 History pantoprazole 40 mg tablet,delayed 40 mg PO QAM 05/01/22 01/26/24 History release tamsulosin 0.4 mg capsule 0.4 mg PO QPM 06/13/23 01/26/24 History aspirin 81 mg tablet,delayed 81 mg PO QDAY 01/26/24 01/26/24 History release clopidogrel 75 mg tablet 75 mg PO QDAY 01/26/24 01/26/24 History doxycycline hyclate 100 mg capsule 100 mg PO BID 01/26/24 01/26/24 History duloxetine 20 mg capsule,delayed 20 mg PO BID 01/26/24 01/26/24 History release gabapentin 800 mg tablet 800 mg PO TID 01/26/24 01/26/24 History naproxen 500 mg tablet 500 mg PO BID PRN 01/26/24 01/26/24 History prednisone 10 mg tablet 10 mg PO BID PRN 01/26/24 01/26/24 History Allergies Allergies Allergy/AdvReac Type Severity Reaction Status Date / Time Iodinated Contrast Media Allergy Unknown Verified 11/02/23 15:15 iodine Allergy Unknown Verified 11/02/23 15:15 morphine Allergy Unknown Verified 11/02/23 15:15 sitagliptin [From ] Allergy Unknown Verified 11/02/23 15:15 Labs 01/27/24 07:05 01/27/24 03:10 Labs: Laboratory WBC 6.4 X10^3/uL (3.6-10.0) 01/27/24 03:10 RBC 2.12 X10^6/uL (4.7-6.0) L 01/27/24 03:10 Hgb 6.8 g/dL (13.5-18.0) L* 01/27/24 07:05 Hct 20.5 % (42.0-54.0) L 01/27/24 07:05 MCV 89.7 fL (80.0-100.0) 01/27/24 03:10 MCH 29.5 pg (27.0-34.0) 01/27/24 03:10 MCHC 32.9 g/dL (33.0-35.0) L 01/27/24 03:10 RDW 15.5 % (11.6-16.5) 01/27/24 03:10 Plt Count 167 X10^3/uL (150.0-450.0) 01/27/24 03:10 MPV 8.2 fL (7.4-11.0) 01/27/24 03:10 Neut % (Auto) 56.5 % (42.0-75.0) 01/27/24 03:10 Lymph % (Auto) 27.4 % (21.0-51.0) 01/27/24 03:10 Wake % (Auto) 13.6 % (0.0-13.0) H 01/27/24 03:10 Eos % (Auto) 1.5 % (0.9-2.9) 01/27/24 03:10 Baso % (Auto) 1.0 % (0.2-1.0) 01/27/24 03:10 Neut # (Auto) 3.6 x10^3/uL (2.2-4.8) 01/27/24 03:10 Lymph # (Auto) 1.8 X10^3/uL (1.3-2.9) 01/27/24 03:10 Wake # (Auto) 0.9 x10^3/uL (0.3-0.8) H 01/27/24 03:10 Eos # (Auto) 0.1 x10^3/uL (0.0-0.2) 01/27/24 03:10 Baso # (Auto) 0.1 X10^3/uL (0.0-0.1) 01/27/24 03:10 Absolute Nucleated RBC 0.0 /100WBC 01/27/24 03:10 PT 17.4 SECONDS (11.8-14.3) 01/27/24 09:00 INR Target Range - 01/27/24 09:00 INR 1.46 (0.8-1.3) H 01/27/24 09:00 APTT 34.1 SECONDS (22.9-36.5) 01/27/24 09:00 PTT Comment - 01/27/24 09:00 Sodium 148 mmol/L (136-145) H 01/27/24 03:10 Corrected Sodium TNP 01/27/24 03:10 Potassium 4.2 mmol/L (3.5-5.1) 01/27/24 03:10 Chloride 113 mmol/L (98-107) H 01/27/24 03:10 Carbon Dioxide 28.5 mmol/L (21-32) 01/27/24 03:10 BUN 59 mg/dL (7-18) H 01/27/24 03:10 Creatinine 0.91 mg/dL (0.70-1.30) 01/27/24 03:10 Est GFR (MDRD) Af Amer > 60 (>60) 01/27/24 03:10 Est GFR (MDRD) Non-Af > 60 (>60) 01/27/24 03:10 Glucose 84 mg/dL (65-99) 01/27/24 03:10 Calcium 7.1 mg/dL (8.5-10.1) L 01/27/24 03:10 Corrected Calcium 9.2 mg/dL (8.5-10.1) 01/27/24 03:10 Magnesium 1.6 mg/dL (2.0-2.9) L 01/27/24 03:10 Total Bilirubin 0.60 mg/dL (0.2-1.0) 01/27/24 03:10 AST 23 Units/L (15-37) 01/27/24 03:10 ALT 7 Units/L (12-78) L 01/27/24 03:10 Alkaline Phosphatase 20 Units/L (46-116) L 01/27/24 03:10 Troponin I High Sens 21.1 ng/L (4.0-60.0) 01/26/24 14:06 Total Protein 4.5 g/dL (6.4-8.2) L 01/27/24 03:10 Albumin 1.4 g/dL (3.4-5.0) L 01/27/24 03:10 Globulin 3.1 g/dL (2.5-4.5) 01/27/24 03:10 Albumin/Globulin Ratio 0.5 Ratio (1.1-2.1) L 01/27/24 03:10 Lipase 23 Units/L (16-77) 01/26/24 14:06 Specimen Type Clean catch urine 01/26/24 15:19 Urine Color Yellow (YELLOW) 01/26/24 15:19 Urine Appearance Clear (CLEAR) 01/26/24 15:19 Urine pH 5.0 (5.0 - 8.0) 01/26/24 15:19 Ur Specific [place] 1.020 (1.000-1.030) 01/26/24 15:19 Urine Protein 1+ (NEGATIVE) 01/26/24 15:19 Urine Glucose (UA) Negative (NEGATIVE) 01/26/24 15:19 Urine Ketones Negative (NEGATIVE) 01/26/24 15:19 Urine Blood 5+ (NEGATIVE) 01/26/24 15:19 Urine Nitrite Negative (NEGATIVE) 01/26/24 15:19 Urine Bilirubin Negative (NEGATIVE) 01/26/24 15:19 Urine Urobilinogen Normal (NORMAL) 01/26/24 15:19 Ur Leukocyte Esterase Negative (NEGATIVE) 01/26/24 15:19 Urine RBC Tntc /HPF (0-3) A 01/26/24 15:19 Urine WBC None seen /HPF (0-5) 01/26/24 15:19 Ur Squamous Epith Cells Few /HPF (NEGATIVE) 01/26/24 15:19 Urine Bacteria Trace /HPF (NEGATIVE) 01/26/24 15:19 Urine Mucus Few /HPF (NEGATIVE) 01/26/24 15:19 Ur Culture Indicated? No/not indicated 01/26/24 15:19 Stl Occult Blood (IFOB) Positive (NEGATIVE) A 01/26/24 23:47 Blood Type O POSITIVE 01/26/24 14:06 Antibody Screen Negative 01/26/24 14:06 Crossmatch See Detail 01/26/24 14:06 Physical Exam Vital Signs: Vital Signs Temperature 98.0 F Pulse Rate 112 Pulse Rate 115 Pulse Rate 112 Pulse Rate 108 Pulse Rate 122 Pulse Rate 115 Pulse Rate 112 Pulse Rate 115 Pulse Rate 110 Pulse Rate 110 Pulse Rate 109 Pulse Rate 109 Pulse Rate 109 Pulse Rate 124 Pulse Rate 125 Pulse Rate 130 Pulse Rate 124 Pulse Rate 123 Pulse Rate 132 Pulse Rate 132 Pulse Rate 131 Pulse Rate 138 Pulse Rate 141 Pulse Rate 140 Pulse Rate 137 Pulse Rate 141 Pulse Rate 137 Pulse Rate 120 Pulse Rate 120 Pulse Rate 134 Pulse Rate 133 Pulse Rate 132 Pulse Rate 137 Pulse Rate 133 Pulse Rate 127 Pulse Rate 125 Pulse Rate 125 Pulse Rate 119 Pulse Rate 120 Pulse Rate 121 Pulse Rate 129 Pulse Rate 143 Pulse Rate 128 Pulse Rate 131 Respiratory Rate 39 Respiratory Rate 26 Respiratory Rate 33 Respiratory Rate 31 Respiratory Rate 23 Respiratory Rate 21 Respiratory Rate 37 Respiratory Rate 21 Respiratory Rate 20 Respiratory Rate 23 Respiratory Rate 21 Respiratory Rate 24 Respiratory Rate 23 Respiratory Rate 23 Respiratory Rate 18 Respiratory Rate 24 Respiratory Rate 23 Respiratory Rate 18 Respiratory Rate 15 Respiratory Rate 18 Respiratory Rate 24 Respiratory Rate 25 Respiratory Rate 25 Respiratory Rate 22 Respiratory Rate 19 Respiratory Rate 20 Respiratory Rate 22 Respiratory Rate 22 Respiratory Rate 20 Respiratory Rate 22 Blood Pressure 104/56 Blood Pressure 98/62 Blood Pressure 98/62 Blood Pressure 101/63 Blood Pressure 101/63 Blood Pressure 153/83 Blood Pressure 109/72 Blood Pressure 109/72 Blood Pressure 104/62 Blood Pressure 104/60 Blood Pressure 80/49 Blood Pressure 74/45 Blood Pressure 68/49 Blood Pressure 93/50 Blood Pressure 88/55 Blood Pressure 81/53 Blood Pressure 81/53 Blood Pressure 122/54 Blood Pressure 81/51 Blood Pressure 83/54 Blood Pressure 125/55 Blood Pressure 125/55 Blood Pressure 87/50 Blood Pressure 82/52 Blood Pressure 81/55 Blood Pressure 81/55 Blood Pressure 68/45 Blood Pressure 140/59 O2 Sat by Pulse Oximetry 100 O2 Sat by Pulse Oximetry 100 O2 Sat by Pulse Oximetry 100 O2 Sat by Pulse Oximetry 94 O2 Sat by Pulse Oximetry 95 O2 Sat by Pulse Oximetry 100 O2 Sat by Pulse Oximetry 100 O2 Sat by Pulse Oximetry 100 O2 Sat by Pulse Oximetry 100 O2 Sat by Pulse Oximetry 100 O2 Sat by Pulse Oximetry 100 O2 Sat by Pulse Oximetry 100 O2 Sat by Pulse Oximetry 100 O2 Sat by Pulse Oximetry 100 O2 Sat by Pulse Oximetry 100 O2 Sat by Pulse Oximetry 100 O2 Sat by Pulse Oximetry 100 O2 Sat by Pulse Oximetry 100 O2 Sat by Pulse Oximetry 100 O2 Sat by Pulse Oximetry 100 O2 Sat by Pulse Oximetry 100 O2 Sat by Pulse Oximetry 100 O2 Sat by Pulse Oximetry 100 O2 Sat by Pulse Oximetry 100 O2 Sat by Pulse Oximetry 100 O2 Sat by Pulse Oximetry 100 O2 Sat by Pulse Oximetry 100 O2 Sat by Pulse Oximetry 100 O2 Sat by Pulse Oximetry 100 O2 Sat by Pulse Oximetry 100 O2 Sat by Pulse Oximetry 100 O2 Sat by Pulse Oximetry 100 O2 Sat by Pulse Oximetry 100 O2 Sat by Pulse Oximetry 100 O2 Sat by Pulse Oximetry 100 O2 Sat by Pulse Oximetry 100 O2 Sat by Pulse Oximetry 97 O2 Sat by Pulse Oximetry 100 O2 Sat by Pulse Oximetry 100 O2 Sat by Pulse Oximetry 100 O2 Sat by Pulse Oximetry 100 Oriented: Not Oriented Respiratory: RLL Rales and LLL Rales Cardiovascular: Tachycardia : Normal Auscultation: Bowel Sounds: Normal Palpation: Normal Tenderness: Normal Skin: Other (Pallor) Psychiatric: Anxiety and Agitation Mood Description: Fearful and Anxious Affect: Anxious Assessment/Plan (1) Symptomatic anemia: Narrative Support Text: Proceed with transfusing 3 units PRBCs. Premedicate with Benadryl and Tylenol before the first unit. Use Lasix in between. Recheck H&H after the second and third units. Status: Acute (2) Acute hypotension: Narrative Support Text: Continue IV fluids but hopefully the blood transfusion will give the best help Status: Acute (3) Acute GI bleeding: Narrative Support Text: Surgery consulted. May not be stable enough for any intervention here. Status: Acute (4) Myasthenia gravis: Narrative Support Text: Continue home medications once he is able to take them. But need to have a talk with neurology about stopping them due to concern about them worsening his GI status. Status: Acute (5) Steroid-induced diabetes mellitus (correct and properly administered): Qualifiers: Encounter type: initial encounter Qualified Code(s): E09.9 - Drug or chemical induced diabetes mellitus without complications; T38.0X5A - Adverse effect of glucocorticoids and synthetic analogues, initial encounter Narrative Support Text: Continue to wean down and off steroids if able monitor sugars and sliding scale as needed Status: Acute
--- NOTE | 2024-01-27 12:40 | PCM.DCPLAN ---
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: Acute Discharge Medications Discharge Medications: Home Medication List aspirin 81 mg tablet,delayed release 81 mg PO QDAY 01/26/24 [History] clopidogrel 75 mg tablet 75 mg PO QDAY 01/26/24 [History] doxycycline hyclate 100 mg capsule 100 mg PO BID 01/26/24 [History] duloxetine 20 mg capsule,delayed release 20 mg PO BID 01/26/24 [History] gabapentin 800 mg tablet 800 mg PO TID 01/26/24 [History] naproxen 500 mg tablet 500 mg PO BID PRN 01/26/24 [History] prednisone 10 mg tablet 10 mg PO BID PRN 01/26/24 [History] Prescriptions: Hospital Course Vital Signs: Vital Signs Temperature 98.0 F Pulse Rate 112 Pulse Rate 115 Pulse Rate 112 Pulse Rate 108 Pulse Rate 122 Pulse Rate 115 Pulse Rate 112 Pulse Rate 115 Pulse Rate 110 Pulse Rate 110 Pulse Rate 109 Pulse Rate 109 Pulse Rate 109 Pulse Rate 124 Pulse Rate 125 Pulse Rate 130 Pulse Rate 124 Pulse Rate 123 Pulse Rate 132 Pulse Rate 132 Pulse Rate 131 Pulse Rate 138 Pulse Rate 141 Pulse Rate 140 Pulse Rate 137 Pulse Rate 141 Pulse Rate 137 Pulse Rate 120 Pulse Rate 120 Pulse Rate 134 Pulse Rate 133 Pulse Rate 132 Pulse Rate 137 Pulse Rate 133 Pulse Rate 127 Pulse Rate 125 Pulse Rate 125 Pulse Rate 119 Pulse Rate 120 Pulse Rate 121 Pulse Rate 129 Pulse Rate 143 Respiratory Rate 39 Respiratory Rate 26 Respiratory Rate 33 Respiratory Rate 31 Respiratory Rate 23 Respiratory Rate 21 Respiratory Rate 37 Respiratory Rate 21 Respiratory Rate 20 Respiratory Rate 23 Respiratory Rate 21 Respiratory Rate 24 Respiratory Rate 23 Respiratory Rate 23 Respiratory Rate 18 Respiratory Rate 24 Respiratory Rate 23 Respiratory Rate 18 Respiratory Rate 15 Respiratory Rate 18 Respiratory Rate 24 Respiratory Rate 25 Respiratory Rate 25 Respiratory Rate 22 Respiratory Rate 19 Respiratory Rate 20 Respiratory Rate 22 Respiratory Rate 22 Blood Pressure 104/56 Blood Pressure 98/62 Blood Pressure 98/62 Blood Pressure 101/63 Blood Pressure 101/63 Blood Pressure 153/83 Blood Pressure 109/72 Blood Pressure 109/72 Blood Pressure 104/62 Blood Pressure 104/60 Blood Pressure 80/49 Blood Pressure 74/45 Blood Pressure 68/49 Blood Pressure 93/50 Blood Pressure 88/55 Blood Pressure 81/53 Blood Pressure 81/53 Blood Pressure 122/54 Blood Pressure 81/51 Blood Pressure 83/54 Blood Pressure 125/55 Blood Pressure 125/55 Blood Pressure 87/50 Blood Pressure 82/52 Blood Pressure 81/55 Blood Pressure 81/55 Blood Pressure 68/45 O2 Sat by Pulse Oximetry 100 O2 Sat by Pulse Oximetry 100 O2 Sat by Pulse Oximetry 100 O2 Sat by Pulse Oximetry 94 O2 Sat by Pulse Oximetry 95 O2 Sat by Pulse Oximetry 100 O2 Sat by Pulse Oximetry 100 O2 Sat by Pulse Oximetry 100 O2 Sat by Pulse Oximetry 100 O2 Sat by Pulse Oximetry 100 O2 Sat by Pulse Oximetry 100 O2 Sat by Pulse Oximetry 100 O2 Sat by Pulse Oximetry 100 O2 Sat by Pulse Oximetry 100 O2 Sat by Pulse Oximetry 100 O2 Sat by Pulse Oximetry 100 O2 Sat by Pulse Oximetry 100 O2 Sat by Pulse Oximetry 100 O2 Sat by Pulse Oximetry 100 O2 Sat by Pulse Oximetry 100 O2 Sat by Pulse Oximetry 100 O2 Sat by Pulse Oximetry 100 O2 Sat by Pulse Oximetry 100 O2 Sat by Pulse Oximetry 100 O2 Sat by Pulse Oximetry 100 O2 Sat by Pulse Oximetry 100 O2 Sat by Pulse Oximetry 100 O2 Sat by Pulse Oximetry 100 O2 Sat by Pulse Oximetry 100 O2 Sat by Pulse Oximetry 100 O2 Sat by Pulse Oximetry 100 O2 Sat by Pulse Oximetry 100 O2 Sat by Pulse Oximetry 100 O2 Sat by Pulse Oximetry 100 O2 Sat by Pulse Oximetry 100 O2 Sat by Pulse Oximetry 100 O2 Sat by Pulse Oximetry 97 O2 Sat by Pulse Oximetry 100 O2 Sat by Pulse Oximetry 100 O2 Sat by Pulse Oximetry 100 Latest Lab Results: Laboratory Last Values WBC 6.4 X10^3/uL (3.6-10.0) 01/27/24 03:10 RBC 2.12 X10^6/uL (4.7-6.0) L 01/27/24 03:10 Hgb 6.8 g/dL (13.5-18.0) L* 01/27/24 07:05 Hct 20.5 % (42.0-54.0) L 01/27/24 07:05 MCV 89.7 fL (80.0-100.0) 01/27/24 03:10 MCH 29.5 pg (27.0-34.0) 01/27/24 03:10 MCHC 32.9 g/dL (33.0-35.0) L 01/27/24 03:10 RDW 15.5 % (11.6-16.5) 01/27/24 03:10 Plt Count 167 X10^3/uL (150.0-450.0) 01/27/24 03:10 MPV 8.2 fL (7.4-11.0) 01/27/24 03:10 Neut % (Auto) 56.5 % (42.0-75.0) 01/27/24 03:10 Lymph % (Auto) 27.4 % (21.0-51.0) 01/27/24 03:10 [place] % (Auto) 13.6 % (0.0-13.0) H 01/27/24 03:10 Eos % (Auto) 1.5 % (0.9-2.9) 01/27/24 03:10 Baso % (Auto) 1.0 % (0.2-1.0) 01/27/24 03:10 Neut # (Auto) 3.6 x10^3/uL (2.2-4.8) 01/27/24 03:10 Lymph # (Auto) 1.8 X10^3/uL (1.3-2.9) 01/27/24 03:10 [place] # (Auto) 0.9 x10^3/uL (0.3-0.8) H 01/27/24 03:10 Eos # (Auto) 0.1 x10^3/uL (0.0-0.2) 01/27/24 03:10 Baso # (Auto) 0.1 X10^3/uL (0.0-0.1) 01/27/24 03:10 Absolute Nucleated RBC 0.0 /100WBC 01/27/24 03:10 PT 17.4 SECONDS (11.8-14.3) 01/27/24 09:00 INR Target Range - 01/27/24 09:00 INR 1.46 (0.8-1.3) H 01/27/24 09:00 APTT 34.1 SECONDS (22.9-36.5) 01/27/24 09:00 PTT Comment - 01/27/24 09:00 Sodium 148 mmol/L (136-145) H 01/27/24 03:10 Corrected Sodium TNP 01/27/24 03:10 Potassium 4.2 mmol/L (3.5-5.1) 01/27/24 03:10 Chloride 113 mmol/L (98-107) H 01/27/24 03:10 Carbon Dioxide 28.5 mmol/L (21-32) 01/27/24 03:10 BUN 59 mg/dL (7-18) H 01/27/24 03:10 Creatinine 0.91 mg/dL (0.70-1.30) 01/27/24 03:10 Est GFR (MDRD) Af Amer > 60 (>60) 01/27/24 03:10 Est GFR (MDRD) Non-Af > 60 (>60) 01/27/24 03:10 Glucose 84 mg/dL (65-99) 01/27/24 03:10 Calcium 7.1 mg/dL (8.5-10.1) L 01/27/24 03:10 Corrected Calcium 9.2 mg/dL (8.5-10.1) 01/27/24 03:10 Magnesium 1.6 mg/dL (2.0-2.9) L 01/27/24 03:10 Total Bilirubin 0.60 mg/dL (0.2-1.0) 01/27/24 03:10 AST 23 Units/L (15-37) 01/27/24 03:10 ALT 7 Units/L (12-78) L 01/27/24 03:10 Alkaline Phosphatase 20 Units/L (46-116) L 01/27/24 03:10 Troponin I High Sens 21.1 ng/L (4.0-60.0) 01/26/24 14:06 Total Protein 4.5 g/dL (6.4-8.2) L 01/27/24 03:10 Albumin 1.4 g/dL (3.4-5.0) L 01/27/24 03:10 Globulin 3.1 g/dL (2.5-4.5) 01/27/24 03:10 Albumin/Globulin Ratio 0.5 Ratio (1.1-2.1) L 01/27/24 03:10 Lipase 23 Units/L (16-77) 01/26/24 14:06 Specimen Type Clean catch urine 01/26/24 15:19 Urine Color Yellow (YELLOW) 01/26/24 15:19 Urine Appearance Clear (CLEAR) 01/26/24 15:19 Urine pH 5.0 (5.0 - 8.0) 01/26/24 15:19 Ur Specific [place] 1.020 (1.000-1.030) 01/26/24 15:19 Urine Protein 1+ (NEGATIVE) 01/26/24 15:19 Urine Glucose (UA) Negative (NEGATIVE) 01/26/24 15:19 Urine Ketones Negative (NEGATIVE) 01/26/24 15:19 Urine Blood 5+ (NEGATIVE) 01/26/24 15:19 Urine Nitrite Negative (NEGATIVE) 01/26/24 15:19 Urine Bilirubin Negative (NEGATIVE) 01/26/24 15:19 Urine Urobilinogen Normal (NORMAL) 01/26/24 15:19 Ur Leukocyte Esterase Negative (NEGATIVE) 01/26/24 15:19 Urine RBC Tntc /HPF (0-3) A 01/26/24 15:19 Urine WBC None seen /HPF (0-5) 01/26/24 15:19 Ur Squamous Epith Cells Few /HPF (NEGATIVE) 01/26/24 15:19 Urine Bacteria Trace /HPF (NEGATIVE) 01/26/24 15:19 Urine Mucus Few /HPF (NEGATIVE) 01/26/24 15:19 Ur Culture Indicated? No/not indicated 01/26/24 15:19 Stl Occult Blood (IFOB) Positive (NEGATIVE) A 01/26/24 23:47 Blood Type O POSITIVE 01/26/24 14:06 Antibody Screen Negative 01/26/24 14:06 Crossmatch See Detail 01/26/24 14:06 Hospital Course: Patient manage due to symptomatic anemia from GI bleed. After reaching of the blood he either had hematochezia or hematemesis. Hemoglobin went from 5.4-6.3-6.8. Given his continued hypotension, tachycardia, and symptomatic anemia, general surgery and I agreed that he needed to be transferred to a tertiary or quaternary care facility. Family agreed to this. We ordered 3 more units of blood, PICC line placement, vasopressin for pressor support, and a CTA. He was accepted to [facility] to the ICU. Family agreed to this transfer and patient was sent via EMS in critical condition. Prognosis guarded.
--- NOTE | 2024-01-27 15:11 | RAD ---
EXAM: CHEST, 1 VIEW HISTORY: PICC LINE PLACEMENT; Unavailable COMPARISON: Yesterday FINDINGS: The trachea is midline. The cardiac silhouette is stable. The lungs are clear without focal infiltra te or effusion. The bony thorax is unchanged. IMPRESSION: No acute cardiopulmonary disease. THIS IS AN ELECTRONICALLY VERIFIED FINAL REPORT 01/27/2024 3:07 PM - Electronically signed by Johnny Herrera MD
== END 2024-01-27 12:05 | disposition home or self-care (01) ==
LOC: ICU 13:41 → ER 13:41 → ICU 17:44
PROVIDERS: ADMIT Family Medicine; ATTEND Family Medicine
DX: G70.00 Myasthenia gravis without (acute) exacerbation; E09.9 Drug or chemical induced diabetes mellitus without complications; I95.89 Other hypotension; R79.1 Abnormal coagulation profile; E78.5 Hyperlipidemia, unspecified; T38.0X5A Adverse effect of glucocorticoids and synthetic analogues, initial encounter; R53.1 Weakness; D64.89 Other specified anemias; Z86.73 Personal history of transient ischemic attack (TIA), and cerebral infarction without residual deficits; K21.9 Gastro-esophageal reflux disease without esophagitis; K92.2 Gastrointestinal hemorrhage, unspecified; I25.10 Atherosclerotic heart disease of native coronary artery without angina pectoris; E83.42 Hypomagnesemia; E87.0 Hyperosmolality and hypernatremia; E11.65 Type 2 diabetes mellitus with hyperglycemia; Z78.1 Physical restraint status; I10 Essential (primary) hypertension; J44.9 Chronic obstructive pulmonary disease, unspecified